=== PATIENT | female | born 1975 | race Caucasian/White ===

== ENCOUNTER → 2019-10-06 09:05 | Outpatient (BNVA) | payer OTHER, SELFPAY | PROVIDERS: Family Provider Family Medicine; PCP Family Medicine; Visit Provider Family Medicine | DX: E78.5 Hyperlipidemia, unspecified (principal); E11.9 Type 2 diabetes mellitus without complications; I10 Essential (primary) hypertension; D50.8 Other iron deficiency anemias; D50.9 Iron deficiency anemia, unspecified | CPT/HCPCS: 80053; 80061; 82728; 83036; 83540; 85025 ==

== ENCOUNTER → 2020-03-01 09:57 | Outpatient (BNVA) | payer OTHER, SELFPAY | PROVIDERS: Family Provider Family Medicine; PCP Family Medicine; Visit Provider Family Medicine | DX: E78.5 Hyperlipidemia, unspecified (principal); I10 Essential (primary) hypertension; E11.9 Type 2 diabetes mellitus without complications; F32.0 Major depressive disorder, single episode, mild; Z68.43 Body mass index [BMI] 50.0-59.9, adult | CPT/HCPCS: 80053; 80061; 82043; 83036; 85025 ==

== ENCOUNTER → 2020-08-30 08:50 | Outpatient (BNVA) | payer OTHER, SELFPAY | PROVIDERS: Family Provider Family Medicine; PCP Family Medicine; Visit Provider Family Medicine | DX: I10 Essential (primary) hypertension (principal); E11.9 Type 2 diabetes mellitus without complications; E78.5 Hyperlipidemia, unspecified; D50.8 Other iron deficiency anemias; F32.0 Major depressive disorder, single episode, mild; N94.6 Dysmenorrhea, unspecified | CPT/HCPCS: 80053; 83036; 85025 ==

== ENCOUNTER → 2020-08-31 11:51 | Outpatient (BNVA) | payer OTHER, SELFPAY | PROVIDERS: Family Provider Family Medicine; PCP Family Medicine | DX: R10.9 Unspecified abdominal pain (principal) | CPT/HCPCS: 81003; 87086 ==

== ENCOUNTER → 2021-03-05 13:38 | Outpatient (BNVA) | payer OTHER, SELFPAY | PROVIDERS: Family Provider Family Medicine; PCP Family Medicine; Visit Provider Family Medicine | DX: I10 Essential (primary) hypertension (principal); E11.9 Type 2 diabetes mellitus without complications; D50.9 Iron deficiency anemia, unspecified; E78.5 Hyperlipidemia, unspecified | CPT/HCPCS: 80053; 80061; 82728; 83036; 83550; 85025 ==

== ENCOUNTER → 2021-09-06 10:14 | Outpatient (BNVA) | payer OTHER, SELFPAY | PROVIDERS: Family Provider Family Medicine; PCP Family Medicine; Visit Provider Family Medicine | DX: E11.9 Type 2 diabetes mellitus without complications (principal); I10 Essential (primary) hypertension | CPT/HCPCS: 80053; 83036 ==

== ENCOUNTER → 2022-03-07 10:26 | Outpatient (BNVA) | payer SELFPAY | PROVIDERS: Family Provider Family Medicine; PCP Family Medicine; Visit Provider Family Medicine | DX: I10 Essential (primary) hypertension (principal); E78.5 Hyperlipidemia, unspecified; E11.9 Type 2 diabetes mellitus without complications | CPT/HCPCS: 80053; 80061; 82043; 83036; 85025 ==

== ENCOUNTER → 2022-11-15 10:01 | Outpatient (BNVA) | payer SELFPAY | PROVIDERS: Family Provider Family Medicine; PCP Family Medicine; Visit Provider Family Medicine | DX: E11.9 Type 2 diabetes mellitus without complications (principal); I10 Essential (primary) hypertension; E78.5 Hyperlipidemia, unspecified; D50.8 Other iron deficiency anemias; Z12.31 Encounter for screening mammogram for malignant neoplasm of breast | CPT/HCPCS: 80053; 83036 ==

== ENCOUNTER → 2023-07-14 16:03 | Outpatient (BNVA) | payer SELFPAY | PROVIDERS: Family Provider Family Medicine; PCP Family Medicine; Visit Provider Family Medicine | DX: E11.9 Type 2 diabetes mellitus without complications (principal); D50.9 Iron deficiency anemia, unspecified; D50.8 Other iron deficiency anemias; R55 Syncope and collapse; Z79.899 Other long term (current) drug therapy | CPT/HCPCS: 80053; 80061; 82043; 82728; 83036; 83550; 85025; 93005 ==

== ENCOUNTER → 2023-10-28 15:10 | Outpatient (BNVA) | payer SELFPAY | PROVIDERS: Family Provider Family Medicine; PCP Family Medicine; Visit Provider Surgery | DX: D50.8 Other iron deficiency anemias (principal); R14.0 Abdominal distension (gaseous) | CPT/HCPCS: 82274; 83630 ==

== ENCOUNTER 2024-04-04 19:13 | Emergency (ER) | payer SELFPAY ==
[2024-04-04 19:20] VITALS: BP 122/76; PULSE 91; RESP 17; TEMP 36.8; O2SAT 93; BMI 44.9
[2024-04-04 19:43] LABS: Bilirubin Urine Negative (Negative); Blood Urine 3+ (Negative); Glucose Urine UA Negative (Normal); Ketones Urine Trace (Negative); Leukocyte Esterase Urine 3+ (Negative); Nitrate Urine Positive (Negative); Protein Urine 3+ (Negative); Specific Gravity, Urine 1.022 (1.005-1.030); Urine Appearance Turbid (CLEAR); Urine Color Dark Yellow (Yellow)
[2024-04-04 19:45] LABS: Add Urine Microscopic? YES; Bacteria Urine 4+ /hpf; Hyaline Casts Urine 17.69 /lpf; RBC Urine >100 /hpf (0-2); Squamous Epithelial Cell Urine 0-5 /hpf (0-5); WBC Urine >100 /hpf (0-5)
[2024-04-04 19:52] LABS: HCG Qualitative Urine. Negative (Negative)
[2024-04-04 19:56] LABS: UA Slide Review UA Slide Review Perf
[2024-04-04 19:57] LABS: Add Urine Culture? Yes; Amorphous Sediment Urine 1+ /hpf
--- NOTE | 2024-04-04 21:00 | W.ED.FEMALGU ---
HPI - Female Genitourinary General: Chief complaint: Urogenital-Female Stated complaint: uti pain Time Seen by Provider: 04/04/24 20:48 History of Present Illness: 48-year-old female comes in today for complaints of urinary discomfort. Patient started feeling ill about Friday or Friday and felt that she probably had a urinary tract infection. Patient had taken some [id number]-[id number] fish antibiotic amoxicillin with no relief of symptoms. Patient appears nontoxic. Patient reports some nausea. Patient denies any back pain. Patient reports most of her pain is in the suprapubic and burning on urination. Patient does have a history of diabetes. Patient denies any allergies to medications. Patient does also take medication for high blood pressure and cholesterol. Related Data Previous Rx's Medication Instructions Recorded metformin 500 mg tablet,extended See Rx Instructions .Route 08/11/23 release 24 hr .COMPLEX #180 tabs citalopram 20 mg tablet See Rx Instructions .Route 10/09/23 .COMPLEX #90 tabs losartan 50 mg-hydrochlorothiazide See Rx Instructions .Route 10/09/23 12.5 mg tablet .COMPLEX #90 tabs metoprolol tartrate 50 mg tablet See Rx Instructions .Route 10/09/23 .COMPLEX #180 tabs atorvastatin 40 mg tablet See Rx Instructions .Route 03/01/24 .COMPLEX #90 tabs ferrous gluconate 324 mg (38 mg 324 mg PO BID #180 tabs 03/01/24 iron) tablet sitagliptin phosphate 100 mg 100 mg PO DAILY #90 tabs 03/01/24 tablet (Januvia) cephalexin 500 mg capsule 500 mg PO Q8H 7 days #21 caps 04/04/24 Allergies Allergy/AdvReac Type Severity Reaction Status Date / Time No Known Allergies Allergy Verified 04/04/24 19:26 Review of Systems General: Reports: 10 or more systems reviewed and unremarkable except in HPI and below : Reports: difficulty voiding PFSH ED PFSH: Medical History (Updated 04/04/24 @ 21:05 by CATRNIA Alvarado) Dyslipidemia Benign essential HTN Mild depression DM II (diabetes mellitus, type II), controlled Iron deficiency anemia Morbid (severe) obesity due to excess calories Menorrhagia, premenopausal Surgical History History of cholecystectomy H/O section History of tonsillectomy Family History Mother Cancer CERVICAL CANCER CAD (coronary artery disease) Social History Smoking and tobacco/nicotine status: never used tobacco/nicotine Alcohol intake: never Substance/Drug Use: never Physical Exam Const: COMMON NORMALS: alert HENMT: COMMON NORMALS: normocephalic HEAD & SCALP: normocephalic Neck/C-Spine: COMMON NORMALS: full ROM Resp: COMMON NORMALS: normal respiratory effort Cardio: COMMON NORMALS: regular rate RATE: regular rate GI: COMMON NORMALS: non-tender : COMMON NORMALS: Yes no CVA tenderness BLADDER/KIDNEY EXAM: Yes no CVA tenderness Back/Pelvis: COMMON NORMALS: no CVA tenderness Extremity: COMMON NORMALS: full ROM Neuro: SENSORIUM/ORIENTATION: Yes alert Skin: COMMON NORMALS: turgor normal GENERAL SKIN EXAM: turgor normal Course Vital Signs: Vital signs: Vital Signs Temperature 98.2 F 04/04/24 19:20 Pulse Rate 91 04/04/24 19:20 Respiratory Rate 17 04/04/24 19:20 Blood Pressure 122/76 04/04/24 19:20 Pulse Oximetry 93 04/04/24 19:20 Oxygen Delivery Me thod Room Air 04/04/24 19:[address] [facility] - Female Medical Decision Making 48-year-old female comes in today for complaints of dysuria x 1 week. On exam patient appears nontoxic. Patient has no CVA tenderness. Patient has no abdominal tenderness. Differential diagnosis includes but not limited to urinary tract infection, pyelonephritis, cystitis, vaginitis. Urinalysis showed a large amount of white blood cells and a large amount of red blood cells with positive nitrates. Reviewed exam with patient recommended treatment for urinary tract infection. Patient will be given 2 g of Rocephin IM and then will be continued on cephalexin 500 mg 3 times a day for 7 days. Patient reported understanding of care plan and need for follow-up or return to the ER. Lab Data Laboratory Results HCG, Qual Negative (Negative) 04/04/24 19:32 Urine Color Dark yellow (Yellow) A 04/04/24 19:33 Urine Appearance Turbid (CLEAR) A 04/04/24 19:33 Urine pH 6.0 (5-7) 04/04/24 19:33 Ur Specific [place] 1.022 (1.005-1.030) 04/04/24 19:33 Urine Protein 3+ (Negative) A 04/04/24 19: Urine Glucose (UA) Negative (Normal) 04/04/24 19: Urine Ketones Trace (Negative) 04/04/24 19: Urine Blood 3+ (Negative) A 04/04/24 19: Urine Nitrate Positive (Negative) A 04/04/24 19: Urine Bilirubin Negative (Negative) 04/04/24 19: Urine Urobilinogen 1.0 mg/dL (Negative) 04/04/24 19: Ur Leukocyte Esterase 3+ (Negative) A 04/04/24 19: Urine RBC >100 /hpf (0-2) H 04/04/24 19:33 Urine WBC >100 /hpf (0-5) H 04/04/24 19:33 Ur Squamous Epith Cells 0-5 /hpf (0-5) 04/04/24 19:33 Amorphous Sediment 1+ /hpf 04/04/24 19:33 Urine Bacteria 4+ /hpf (NONE) H 04/04/24 19:33 Hyaline Casts 17.69 /lpf 04/04/24 19:33 No radiology studies performed this visit Discharge Plan Discharge Patient Disposition: Home Clinical Impression: Urinary tract infection Qualifiers: Urinary tract infection type: acute cystitis Hematuria presence: without hematuria Qualified Code(s): N30.00 - Acute cystitis without hematuria Condition: Stable Prescriptions: New cephalexin 500 mg capsule 500 mg PO Q8H 7 Days Qty: 21 0RF No Action citalopram 20 mg tablet See Rx Instructions .ROUTE .COMPLEX Qty: 90 1RF Dose Instruction: Take 1 tablet by mouth once daily Rx Instructions: Take 1 tablet by mouth once daily losartan-hydrochlorothiazide 50-12.5 mg tablet See Rx Instructions .ROUTE .COMPLEX Qty: 90 1RF Dose Instruction: Take 1 tablet by mouth once daily Rx Instructions: Take 1 tablet by mouth once daily metoprolol tartrate 50 mg tablet See Rx Instructions .ROUTE .COMPLEX Qty: 180 1RF Dose Instruction: Take 1 tablet by mouth twice daily Rx Instructions: Take 1 tablet by mouth twice daily metformin 500 mg tablet extended release 24 hr See Rx Instructions .ROUTE .COMPLEX Qty: 180 1RF Dose Instruction: Take 1 tablet by mouth twice daily Rx Instructions: Take 1 tablet by mouth twice daily Januvia 100 mg tablet 100 mg PO DAILY Qty: 90 1RF atorvastatin 40 mg tablet See Rx Instructions .ROUTE .COMPLEX Qty: 90 1RF Dose Instruction: Take 1 tablet by mouth once daily Rx Instructions: Take 1 tablet by mouth once daily ferrous gluconate 324 mg (38 mg iron) tablet 324 mg PO BID Qty: 180 1RF Discharge Orders: Discharge ED (Routine); Ordered 04/04/24 Ordered By: Paolo Gates Referrals: Georgette Machado DO [Primary Care Provider] - Discharge Diet: Usual diet Discharge Activity: Increase activity as tolerated Patient Instructions: Urinary Tract Infection in Women (ED) Activity Restrictions/Additional Instructions: Drink plenty of water and fluids. Take cephalexin 500 mg 3 times a day for the next 7 days. Follow-up with primary care in 1 week for recheck of urine. Return to ER for worsening symptoms such as inability to hold fluids down or new concerns. Coding Level of Care Code ED Bonding Equipment Operator for Mahesh Heller
[2024-04-04] MEDS: cefTRIAXone 2,000 MG in water for injection-sterile 2.1 ML 1 MG IM (21:32)
[2024-04-04 23:34] VITALS: BP 127/76; PULSE 80; O2SAT 96
[2024-04-06 12:19] LABS: Chlamydia Trachomatis RNA TMA NOT DETECTED (NOT DETECTED); Neisseria Gonorrhoeae RNA, TMA NOT DETECTED (NOT DETECTED); Trichomonas Vaginalis RNA NOT DETECTED (NOT DETECTED)
== END 2024-04-04 21:45 | disposition home or self-care (01) ==
PROVIDERS: Emergency Provider Nurse Practitioner Family; Family Provider Family Medicine; PCP Family Medicine
DX: N30.00 Acute cystitis without hematuria (principal); Z79.84 Long term (current) use of oral hypoglycemic drugs; I10 Essential (primary) hypertension; E11.9 Type 2 diabetes mellitus without complications
CPT/HCPCS: 81001; 81025; 87077; 87086; 87186; 87491; 87591; 96372; 99284; J0696

== ENCOUNTER → 2024-04-12 08:56 | Outpatient (BNVA) | payer SELFPAY | PROVIDERS: Family Provider Family Medicine; PCP Family Medicine; Visit Provider Clinical Nurse Specialist Adult Health | DX: N39.0 Urinary tract infection, site not specified (principal); N30.00 Acute cystitis without hematuria | CPT/HCPCS: 81000; 87086 ==

== ENCOUNTER 2024-04-17 15:53 | Emergency (ER) | payer SELFPAY ==
[2024-04-17 16:03] VITALS: BP 143/75; PULSE 64; RESP 16; TEMP 36.3; O2SAT 95; BMI 44.5
--- NOTE | 2024-04-17 16:19 | CTR_ITS ---
PROCEDURE INFORMATION: Exam: CT Abdomen And Pelvis With Contrast Exam date and time: 04/17/2024 4:40 PM Age: 49 years old Clinical indication: Nausea; Abdominal pain; Generalized; TECHNIQUE: Imaging protocol: Computed tomography of the abdomen and pelvis with contrast. Radiation optimization: All CT scans at this facility use at least one of these dose optimization techniques: automated exposure control; mA and/or kV adjustment per patient size (includes targeted exams where dose is matched to clinical indication); or iterative reconstruction. Contrast material: OMNI 350; Contrast volume: 100 ml; Contrast route: INTRAVENOUS (IV); COMPARISON: No relevant prior studies available. RADIATION DOSE METRICS: Total DLP (mGy-cm): 1089.03 FINDINGS: Lungs: There are pulmonary parenchymal calcifications consistent with remote granulomatous organism exposure. Liver: Normal. No mass. Gallbladder and biliary ducts: The gallbladder has been removed. Pancreas: Normal. No ductal dilation. Spleen: Normal. No splenomegaly. Adrenal glands: Normal. No mass. Kidneys and ureters: Normal. No hydronephrosis. Stomach and bowel: See Urinary bladder finding. Appendix: No evidence of appendicitis. A normal appendix is identified. Intraperitoneal space: See Urinary bladder finding. Vasculature: Unremarkable. No abdominal aortic aneurysm. Lymph nodes: Unremarkable. No enlarged lymph nodes. Urinary bladder: The bladder wall is severely thickened and irregular contour with surrounding inflammatory changes. There is air in the bladder. Sigmoid colon extends into the bladder mucosa consistent with a fistulous connection. There is associated mucosal thickening of the sigmoid colon in this region with surrounding inflammatory stranding. On the right side of the colovesical fistula there is a complex air-fluid collection measuring 13 mm x 22 mm in the transverse/AP dimensions consistent with an abscess formation or rupture of the adjacent sigmoid colon into the peritoneal space. There are multiple small foci of air in this region which appear to be contained locally. Reproductive: The uterus is displaced rightward. Bones/joints: Unremarkable. No acute fracture. Soft tissues: Unremarkable. CT/CT abdomen pelvis w con* [id number] IMPRESSION: Findings as stated above are consistent with acute cystitis with a colovesical fistula and adjacent air-fluid collection consistent with sigmoid colon rupture versus abscess formation.
--- NOTE | 2024-04-17 16:21 | ED_ITS ---
HPI - Female Genitourinary 2 General: Chief complaint: Urogenital-Female Stated complaint: urinary pain Time Seen by Provider: 04/17/24 16:03 History of Present Illness: Jayna Bonilla is a 49-year-old female that presents to the emergency department with complaints of low abdominal pain and back pain. Onset of symptoms approximately 2 weeks ago when she was first diagnosed with a urinary tract infection. She underwent a urine culture which revealed E. coli in her urine. She was treated initially with Keflex but then Rocephin and now ciprofloxacin. She has completed her antibiotics but woke up today with increased abdominal pain and new onset of back pain. She is pale and sick appearing. She reports nausea but no vomiting. Denies fevers but has chills. Associated symptoms: Reports abdominal pain and nausea; Deny headache(s) Related Data Previous Rx's Medication Instructions Recorded metformin 500 mg tablet,extended See Rx Instructions .Route 08/11/23 release 24 hr .COMPLEX #180 tabs citalopram 20 mg tablet See Rx Instructions .Route 10/09/23 .COMPLEX #90 tabs losartan 50 mg-hydrochlorothiazide See Rx Instructions .Route 10/09/23 12.5 mg tablet .COMPLEX #90 tabs metoprolol tartrate 50 mg tablet See Rx Instructions .Route 10/09/23 .COMPLEX #180 tabs atorvastatin 40 mg tablet See Rx Instructions .Route 03/01/24 .COMPLEX #90 tabs ferrous gluconate 324 mg (38 mg 324 mg PO BID #180 tabs 03/01/24 iron) tablet sitagliptin phosphate 100 mg 100 mg PO DAILY #90 tabs 03/01/24 tablet (Januvia) ciprofloxacin HCl 500 mg tablet 500 mg PO BID 5 days #10 tabs 04/12/24 (Cipro) Allergies Allergy/AdvReac Type Severity Reaction Status Date / Time No Known Allergies Allergy Verified 04/17/24 16:09 Review of Systems 2 General: Reports: 10 or more systems reviewed and unremarkable except in HPI and below Const: Denies: fever(s), chills, change in appetite, change in weight, fatigue or malaise Card: Denies: chest pain, palpitations, irregular heart rhythm, edema, dyspnea on exertion, orthopnea or leg pain with exertion Resp: Denies: dyspnea, productive cough, non-productive cough, wheezing, stridor or chest congestion GI: Reports: abdominal pain and nausea; Denies: vomiting, dysphagia, diarrhea, constipation, bloating, GI cramping or hematochezia : Reports: flank pain, difficulty voiding, dysuria, urinary frequency and urinary urgency; Denies: urinary hesitancy, oliguria or hematuria Neuro: Denies: headache(s), numbness in extremities, weakness in extremities, sensory changes, lack of coordination, difficulty walking, frequent falls, dizziness, confusion, Slurred speech present, difficulty communicating thoughts, seizure-like activity or involuntary movements Endo: Denies: polyuria, polydipsia or tired all the time Bernard/Lymph: Denies: easy bruising or easy bleeding PFSH ED 2 PFSH: Medical History Dyslipidemia Benign essential HTN Mild depression DM II (diabetes mellitus, type II), controlled Iron deficiency anemia Morbid (severe) obesity due to excess calories Menorrhagia, premenopausal Surgical History History of cholecystectomy H/O section History of tonsillectomy Family History Mother Cancer CERVICAL CANCER CAD (coronary artery disease) Social History Smoking and tobacco/nicotine status: never used tobacco/nicotine Alcohol intake: never Substance/Drug Use: never Physical Exam 2 Const: COMMON NORMALS: no acute distress, patient oriented x3 and alert G ENERAL APPEARANCE: cooperative ORIENTATION/CONSCIOUSNESS: Yes awake, Yes oriented to person, Yes oriented to place and Yes oriented to time HENMT: COMMON NORMALS: normocephalic and atraumatic HEAD & SCALP: n ormocephalic and atraumatic FACE & SINUS: normal facial exam MOUTH: Normal oral and palatal mucosa present THROAT: posterior oropharynx normal Eye: COMMON NORMALS: Equal, round and reactive pupils present, EOMs intact bilaterally, conjunctivae normal and no scleral icterus GENERAL EYE: a ppearance normal, both eyes and all related structures ALIGNMENT: Yes alignment normal PERIORBITAL: periorbital findings normal CONJUNCTIVA: Yes conjunctivae normal PUPIL: Yes Equal, round and reactive pupils present Neck/C-Spine: COMMON NORMALS: full ROM GENERAL: Yes normal visual inspection Lymph: LYMPHATIC: no lymphadenopathy noted Chest: COMMONS NORMALS: normal inspection of the chest Breast/axilla inspection: Yes no chest deformity, asymmetry, normal contours, no nodules, masses, tenderness Resp: COMMON NORMALS: normal respiratory effort, No retractions, No use of accessory muscles and clear to auscultation bilaterally EFFORT & INSPECTION: Yes able to speak in complete sentences and Yes symmetric chest movement A USCULTATION: clear to auscultation bilaterally Cardio: COMMON NORMALS: regular rate, regular rhythm and Peripheral pulses 2+ throughout RATE: regular rate RHYTHM: regular rhythm PERIPHERAL PULSES: Peripheral pulses 2+ throughout GI: COMMON NORMALS: Normal to inspection, nondistended, normoactive bowel sounds present, Soft to palpation, non-tender and No hepatosplenomegaly present INSPECTION: Yes normal to inspection AUSCULTATION: Yes normoactive bowel sounds PALPATION: Yes Soft to palpation and Yes No hepatosplenomegaly present RECTAL EXAM: deferred Extremity: COMMON NORMALS: normal to inspection GENERAL: Yes normal exam except as noted Neuro: COMMON NORMALS: patient oriented x3 SENSORIUM/ORIENTATION: Yes alert, Yes oriented to person, Yes oriented to place and Yes oriented to time CRANIAL NERVES: Yes CN normal except as noted Psych: COMMON NORMALS: mental status grossly normal, Normal thought process present, cooperative, activity/motor behavior normal, denies homicidal ideation and denies suicidal ideation THOUGHT PROCESS: Normal thought process present Skin: COMMON NORMALS: no rashes or lesions noted, no wounds and turgor normal GENERAL SKIN EXAM: no rashes or lesions noted and turgor normal Course 2 Vital Signs: Vital signs: Vital Signs Temperature 97.4 F L 04/17/24 16:03 Pulse Rate 62 04/17/24 20:37 Respiratory Rate 16 04/17/24 20:37 Blood Pressure 126/69 04/17/24 20:37 Pulse Oximetry 96 04/17/24 20:37 Oxygen Delivery Me thod Room Air 04/17/24 20:37 MDM - Female Medical Decision Making Patient evaluated in the emergency department today for ongoing urinary complaints. Patient has been treated 3 times for a urinary tract infection. Urine culture positive for E. coli and last antibiotic was ciprofloxacin. Patient presents today with worsening suprapubic abdominal pain that radiates into her back. She has no CVA tenderness. She reports bladder spasms, burning with urination, increased urine urgency and hesitancy. She underwent laboratory evaluation including CBC, CMP, lactic. Laboratory studies revealed anemia that is mildly worse than her baseline. No leukocytosis. She has no significant electrolyte abnormalities. Lactic acid is normal I did order a CT of her abdomen pelvis with contrast. CT of the abdomen pelvis revealed severely thickened and irregular bladder wall with evidence of sigmoid colon fistula and through the bladder mucosa. There is also associated mucosal thickening of the sigmoid colon and surrounding inflammatory stranding. There is a complex air-fluid collection that measures 13 mm x 22 mm in the transverse AP dimension consistent with an abscess formation or rupture of adjacent segment of sigmoid colon into the peritoneal space. I started the patient on Zosyn, gave her another fluid bolus. I reviewed these findings with Dr. Lopez, my attending as well as a patient. I attempted to transfer patient to [facility] in [place] for colorectal surgery evaluation. Unfortunately they are unable to accept the patient due to infrastructure issue. I attempted a second facility?Dr. Sparks in [place] who recommended discharge home. I did speak with [facility] GI?colorectal who recommended admission. Patient needed to be evaluated before a decision like that could be made for discharge home. We elected to call [facility] in [place]. I spoke with Dr. Gallego who recommends excepting the patient for inpatient transfer and having her evaluated. She is going to need urology, colorectal, GI, possible ID. They have accepted the patient under Dr. Hooks. Awaiting transfer Lab Data 04/17/24 16:30 04/17/24 16:30 Radiology Impressions Abdomen/Pelvis CT 04/17/24 16:19 IMPRESSION: Findings as stated above are consistent with acute cystitis with a colovesical fistula and adjacent air-fluid collection consistent with sigmoid colon rupture versus abscess formation. ADDENDUM: 04/17/24 768 CRITICAL RESULT: The study was personally discussed on the telephone with BERNADETTE OSMAN on 04/17/2024 6:06 PM PASSENGER LOCOMOTIVE ENGINEER. The results were understood and acknowledged. Laboratory Results WBC 8.91 10^3/uL (3.29-11.43) 04/17/24 16:30 RBC 3.73 10^6/uL (3.85-5.65) L 04/17/24 16:30 Hgb 9.00 g/dL (11.27-16.99) L 04/17/24 16: Hct 29.2 % (36-47) L 04/17/24: MCV 78.3 fl (85-98) L 04/17/24 16: MCH 24.1 pg (27-33) L 04/17/24: MCHC 30.8 g/dL (30-55) 04/17/24: RDW 14.5 % (12.1-15.1) 04/17/24: Plt Count 602 10^3/cmm (157-399) H 04/17/24: MPV 9.0 fL (7.4-10.4) 04/17/24: Neut % (Auto) 64.5 % 04/17/24: Lymph % (Auto) 23.3 % 04/17/24: [place] % (Auto) 9.4 % 04/17/24: Eos % (Auto) 1.6 % 04/17/24: Baso % (Auto) 0.9 % 04/17/24: Neut # (Auto) 5.74 10^3/uL (1.8-7.7) 04/17/24: Lymph # (Auto) 2.1 10^3/uL (0.8-4.8) 04/17/24: [place] # (Auto) 0.8 10^3/uL (0.2-0.9) 04/17/24: Eos # (Auto) 0.1 10^3/uL (0.0-0.8) 04/17/24: Baso # (Auto) 0.1 10^3/uL (0.0-0.1) 04/17/24: Nucleated RBC % (auto) 0 % 04/17/24 Nucleated RBCs # 0.0 /100WBC 04/17/24 16: Sodium 135 mmol/L (136-145) L 04/17/24: Potassium 4.0 mmol/L (3.5-5.1) 04/17/24: Chloride 99 mmol/L (98-107) 04/17/24 16:30 Carbon Dioxide 24 mmol/L (22-29) 04/17/24 16:30 Anion Gap 16.0 (5-19) 04/17/24 16:30 BUN 10 mg/dL (6-20) 04/17/24 16:30 Creatinine 0.8 mg/dL (0.5-0.9) 04/17/24 16:30 GFR Calculation 76.6 mL/min (90-130) L 04/17/24 16: Glucose 118 mg/dL (65-115) H 04/17/24 16:30 Calculated Osmolality 280 mOsm/kg (285-295) L 04/17/24 16:30 Lactic Acid 1.5 mmol/L (0.5-2.2) 04/17/24 16:30 Calcium 8.5 mg/dL (8.5-10.5) 04/17/24 16:30 Total Bilirubin 0.2 mg/dL (0.15-1.2) 04/17/24 16:30 AST 16 U/L (0-32) 04/17/24 16:30 ALT 11 U/L (0-33) 04/17/24 16:30 Alkaline Phosphatase 86 U/L (35-105) 04/17/24 16:30 Total Protein 7.8 g/dL (6.6-8.7) 04/17/24 16:30 Albumin 3.7 g/dL (3.5-5.2) 04/17/24 16:30 Globulin 4.1 g/dL (1.3-4.6) 04/17/24 16:30 Urine Color Yellow (Yellow) 04/17/24 16:17 Urine Appearance Clear (CLEAR) 04/17/24 16:17 Urine pH 5.5 (5-7) 04/17/24 16:17 Ur Specific [place] 1.009 (1.005-1.030) 04/17/24 16:17 Urine Protein 1+ (Negative) A 04/17/24 16:17 Urine Glucose (UA) Negative (Normal) 04/17/24 16:17 Urine Ketones Negative (Negative) 04/17/24 16:17 Urine Blood 3+ (Negative) A 04/17/24 16: Urine Nitrate Negative (Negative) 04/17/24 16: Urine Bilirubin Negative (Negative) 04/17/24 16:17 Urine Urobilinogen 0.2 mg/dL (Negative) 04/17/24 16:17 Ur Leukocyte Esterase 3+ (Negative) A 04/17/24 16:17 Urine RBC 21-50 /hpf (0-2) H 04/17/24 16:17 Urine WBC 51-100 /hpf (0-5) H 04/17/24 16:17 Ur Squamous Epith Cells 0-5 /hpf (0-5) 04/17/24 16:17 Amorphous Sediment Not Reportable 04/17/24 16:17 Urine Bacteria Trace /hpf (NONE) 04/17/24 16:17 Hyaline Casts 0-4 /lpf H 04/17/24 16:17 All radiology interpretation(s) finalized by discharge Discharge Plan Discharge Patient Disposition: Transfer to ED Clinical Impression: [place]-vesical fistula, Mild depression, Benign essential HTN, Urinary tract infection, Intra-abdominal abscess Iron deficiency anemia Qualifiers: Iron deficiency anemia type: inadequate dietary iron intake Qualified Code(s): D50.8 - Other iron deficiency anemias DM II (diabetes mellitus, type II), controlled Qualifiers: Diabetes mellitus termite helper insulin use: without termite helper use Diabetes mellitus complication status: without complication Qualified Code(s): E11.9 - Type 2 diabetes mellitus without complications Condition: Stable Prescriptions: No Action citalopram 20 mg tablet See Rx Instructions .ROUTE .COMPLEX Qty: 90 1RF Dose Instruction: Take 1 tablet by mouth once daily Rx Instructions: Take 1 tablet by mouth once daily losartan-hydrochlorothiazide 50-12.5 mg tablet See Rx Instructions .ROUTE .COMPLEX Qty: 90 1RF Dose Instruction: Take 1 tablet by mouth once daily Rx Instructions: Take 1 tablet by mouth once daily metoprolol tartrate 50 mg tablet See Rx Instructions .ROUTE .COMPLEX Qty: 180 1RF Dose Instruction: Take 1 tablet by mouth twice daily Rx Instructions: Take 1 tablet by mouth twice daily ciprofloxacin HCl [Cipro] 500 mg tablet 500 mg PO BID 5 Days Qty: 10 0RF metformin 500 mg tablet extended release 24 hr See Rx Instructions .ROUTE .COMPLEX Qty: 180 1RF Dose Instruction: Take 1 tablet by mouth twice daily Rx Instructions: Take 1 tablet by mouth twice daily Januvia 100 mg tablet 100 mg PO DAILY Qty: 90 1RF atorvastatin 40 mg tablet See Rx Instructions .ROUTE .COMPLEX Qty: 90 1RF Dose Instruction: Take 1 tablet by mouth once daily Rx Instructions: Take 1 tablet by mouth once daily ferrous gluconate 324 mg (38 mg iron) tablet 324 mg PO BID Qty: 180 1RF Referrals: Georgette Machado DO [Primary Care Provider] - Coding Level of Care Code ED Cutting Machine Fixer for Mahesh Heller
[2024-04-17 16:32] LABS: Bilirubin Urine Negative (Negative); Blood Urine 3+ (Negative); Glucose Urine UA Negative (Normal); Ketones Urine Negative (Negative); Leukocyte Esterase Urine 3+ (Negative); Nitrate Urine Negative (Negative); Protein Urine 1+ (Negative); Specific Gravity, Urine 1.009 (1.005-1.030); Urine Appearance Clear (CLEAR); Urine Color Yellow (Yellow); Urobilinogen Urine 0.2 mg/dL (Negative); pH Urine 5.5 (5-7)
[2024-04-17 16:37] LABS: Add Urine Microscopic? YES; Bacteria Urine Trace /hpf; Hyaline Casts Urine 0-4 /lpf; RBC Urine 21-50 /hpf (0-2); Squamous Epithelial Cell Urine 0-5 /hpf (0-5); WBC Urine 51-100 /hpf (0-5)
[2024-04-17] MEDS: iohexol 350 mg/mL 500 mL Btl (per mL) IV (16:42)
[2024-04-17 16:49] LABS: Basophils # 0.1 10^3/uL (0.0-0.1); Basophils % 0.9 %; Eosinophils # 0.1 10^3/uL (0.0-0.8); Eosinophils % 1.6 %; Hematocrit 29.2 % (36-47); Lymphocytes # 2.1 10^3/uL (0.8-4.8); Lymphocytes % 23.3 %; Mean Corpuscular HGB Conc 30.8 g/dL (30-55); Mean Corpuscular Hemoglobin 24.1 pg (27-33); Mean Corpuscular Volume 78.3 fl (85-98); Monocytes # 0.8 10^3/uL (0.2-0.9); Monocytes % 9.4 %; Neutrophils # 5.74 10^3/uL (1.8-7.7); Neutrophils % 64.5 %; Nucleated Red Blood Cells % 0 %; Platelet Count 602 10^3/cmm (157-399); Red Blood Count 3.73 10^6/uL (3.85-5.65); Red Cell Distribution Width 14.5 % (12.1-15.1); White Blood Count 8.91 10^3/uL (3.29-11.43)
[2024-04-17 16:53] LABS: Add Urine Culture? Yes
[2024-04-17] MEDS: phenazopyridine 100 mg Tablet PO (16:59)
[2024-04-17] MEDS: sodium chloride 0.9% 1,000 ML 999 ML IV (16:59)
[2024-04-17] MEDS: ondansetron 2 mg/ML SDV 2 mL 4 MG IVP (17:00)
[2024-04-17] MEDS: morphine 4 mg/mL SDV 1 mL IVP (17:00)
[2024-04-17 17:04] VITALS: BP 145/72; PULSE 55; RESP 16; O2SAT 96
[2024-04-17 17:06] LABS: Alanine Aminotransferase 11 U/L (0-33); Albumin Level 3.7 g/dL (3.5-5.2); Alkaline Phosphatase 86 U/L (35-105); Aspartate Amino Transferase 16 U/L (0-32); Blood Urea Nitrogen 10 mg/dL (6-20); Calcium 8.5 mg/dL (8.5-10.5); Carbon Dioxide 24 mmol/L (22-29); Chloride 99 mmol/L (98-107); Creatinine Clr Calc Pharmacy 93.2258; Globulin 4.1 g/dL (1.3-4.6); Glomerular Filtration Rate 76.6 mL/min (90-130); Glucose 118 mg/dL (65-115); Osmolality Calculated 280 mOsm/kg (285-295); Sodium 135 mmol/L (136-145); Total Bilirubin 0.2 mg/dL (0.15-1.2); Total Protein 7.8 g/dL (6.6-8.7)
[2024-04-17 17:07] LABS: Lactic Sepsis W/Reflex 1.5 mmol/L (0.5-2.2)
[2024-04-17 19:18] VITALS: BP 129/72; PULSE 58; RESP 16; O2SAT 96
[2024-04-17] MEDS: piperacillin-tazobactam 3.375 GM in sodium chloride 0.9% (plus) 50 ML IV (19:25)
[2024-04-17 20:37] VITALS: BP 126/69; PULSE 62; RESP 16; O2SAT 96
[2024-04-17 21:59] VITALS: BP 127/76; PULSE 57; RESP 16; O2SAT 94
[2024-04-17 22:58] VITALS: BP 127/87; PULSE 89; O2SAT 99
== END 2024-04-17 22:59 ==
LOC: ER 16:24 → NP 20:03 → ER 21:04
PROVIDERS: Emergency Medicine; Emergency Provider Nurse Practitioner; PCP Family Medicine
DX: N32.1 Vesicointestinal fistula (principal); F32.A Depression, unspecified; K65.1 Peritoneal abscess; N39.0 Urinary tract infection, site not specified; I10 Essential (primary) hypertension; D50.8 Other iron deficiency anemias; E11.9 Type 2 diabetes mellitus without complications; E78.5 Hyperlipidemia, unspecified
CPT/HCPCS: 36415; 74177; 80053; 81001; 83605; 85025; 87040; 87086; 96365; 96375; 99285; J2270; J2405; J2543; J7030

== ENCOUNTER 2024-05-28 17:16 | Emergency (ER) | payer SELFPAY ==
[2024-05-28] VITALS (7 sets, daily range): BP systolic 104–119; BP diastolic 54–74; PULSE 66–101; RESP 16; TEMP 36.9; O2SAT 91–100; BMI 41.3
--- NOTE | 2024-05-28 19:22 | XRR_ITS ---
PROCEDURE INFORMATION: Exam: XR Chest Exam date and time: 05/28/2024 7:47 PM Age: 49 years old Clinical indication: Patient HX: Dizziness; Cough; SOB; Chest congestion TECHNIQUE: Imaging protocol: Radiologic exam of the chest. Views: 1 view. COMPARISON: CT abdomen pelvis w con* [id number] 04/17/2024 4:40 PM FINDINGS: Tubes, catheters and devices: None. Lungs: Lung volumes are decreased. Possible minimal central perihilar pulmonary venous congestion or infiltrates within the lungs, without definite pulmonary edema. The peripheral lungs are otherwise clear. Pleural spaces: No pleural effusion. No pneumothorax. Heart/Mediastinum: Cardiac silhouette appears mildly enlarged. Diaphragm: Elevation of the right hemidiaphragm is demonstrated. Bones/joints: Generalized bony degenerative changes. Soft tissues: This study is severely limited by patient's large body habitus. Clinically significant abnormalities may not be visible on this study. Recommend clinical correlation. XR/XR chest 1V portable [id number] IMPRESSION: 1. Significantly limited study. 2. Mild enlarged cardiac silhouette. 3. Possible central pulmonary venous congestion or minimal perihilar infiltrates.
--- NOTE | 2024-05-28 19:31 | ECG_ITS ---
[facility] Test Date: 2024-05-28 Pat Name: Jayna Ricketts Department: Room: Gender: Female Supervisor Color Making: : 1975 Requested By: Rakesh Bradshaw Order Number: [id number] Shelli MD: Trent Sexton M.D. Measurements Intervals [place] Rate: 84 P: 77 [place]: 164 QRS: 69 QRSD: 97 T: 72 QT: 369 QTc: 437 Interpretive Statements SINUS RHYTHM No previous ECG available for comparison Electronically Signed On 05-30-2024 20:10:14 [employer]ATING [employer] CLE[employer]ER by Trent Sexton M.D. [email or web address]
--- NOTE | 2024-05-28 19:47 | ED_ITS ---
HPI - Dizziness 2 General: Chief Complaint: Dizziness Stated Complaint: dizzy Time Seen by Provider: 05/28/24 19:21 Source: patient Mode of arrival: ambulatory Limitations: no limitations History of Present Illness: HPI Narrative: He states that she has been having some cough congestion body aches with generalized weakness. She states she had some lightheadedness today she denies any vertigo but states she is felt very lightheaded at times and dehydrated. She had also recently been diagnosed with a UTI is on Augmentin currently. 49-year-old female Associated symptoms: Denies chest pain, chills, headache(s), nausea or vomiting Related Data Previous Rx's Medication Instructions Recorded metformin 500 mg tablet,extended See Rx Instructions .Route 08/11/23 release 24 hr .COMPLEX #180 tabs citalopram 20 mg tablet See Rx Instructions .Route 10/09/23 .COMPLEX #90 tabs losartan 50 mg-hydrochlorothiazide See Rx Instructions .Route 10/09/23 12.5 mg tablet .COMPLEX #90 tabs metoprolol tartrate 50 mg tablet See Rx Instructions .Route 10/09/23 .COMPLEX #180 tabs atorvastatin 40 mg tablet See Rx Instructions .Route 03/01/24 .COMPLEX #90 tabs ferrous gluconate 324 mg (38 mg 324 mg PO BID #180 tabs 03/01/24 iron) tablet sitagliptin phosphate 100 mg 100 mg PO DAILY #90 tabs 03/01/24 tablet (Januvia) ciprofloxacin HCl 500 mg tablet 500 mg PO BID 5 days #10 tabs 04/12/24 (Cipro) Allergies Allergy/AdvReac Type Severity Reaction Status Date / Time No Known Allergies Allergy Verified 05/28/24 17:25 Review of Systems 2 Const: Denies: fever(s), chills, body aches or change in appetite ENMT: Denies: throat pain or dental pain Card: Reports: lightheadedness; Denies: chest pain Resp: Denies: dyspnea GI: Denies: abdominal pain, nausea, vomiting or diarrhea : Reports: dysuria Musc: Denies: neck pain or back pain Skin/Breast: Denies: rash Neuro: Denies: headache(s) PFSH ED 2 PFSH: Medical History Dyslipidemia Benign essential HTN Mild depression DM II (diabetes mellitus, type II), controlled Iron deficiency anemia Morbid (severe) obesity due to excess calories Menorrhagia, premenopausal Surgical History History of cholecystectomy H/O section History of tonsillectomy Family History Mother Cancer CERVICAL CANCER CAD (coronary artery disease) Social History Smoking and tobacco/nicotine status: never used tobacco/nicotine Alcohol intake: never Substance/Drug Use: never Female Reproductive History: Date of last menstrual period: 01/01/24 Physical Exam 2 Const: COMMON NORMALS: patient oriented x3 HENMT: COMMON NORMALS: normocephalic and atraumatic HEAD & SCALP: n ormocephalic and atraumatic Eye: COMMON NORMALS: conjunctivae normal CONJUNCTIVA: Yes conjunctivae normal Neck/C-Spine: COMMON NORMALS: full ROM and supple Chest: COMMONS NORMALS: normal inspection of the chest Resp: COMMON NORMALS: normal respiratory effort Cardio: COMMON NORMALS: regular rate, regular rhythm and No murmurs present (Cardio) RATE: regular rate RHYTHM: regular rhythm GI: COMMON NORMALS: Normal to inspection, nondistended, normoactive bowel sounds present, Soft to palpation, non-tender and no masses PALPATION: Yes Soft to palpation Extremity: COMMON NORMALS: normal to inspection and full ROM Neuro: COMMON NORMALS: patient oriented x3, moves all extremities and no focal motor deficits CRANIAL NERVES: Yes CN normal except as noted SPEECH: s peech normal GAIT: Yes Normal gait present Psych: COMMON NORMALS: mental status grossly normal, Normal thought process present and cooperative THOUGHT PROCESS: Normal thought process present Skin: COMMON NORMALS: no rashes or lesions noted and no wounds GENERAL SKIN EXAM: no rashes or lesions noted Course 2 Vital Signs: Vital signs: Vital Signs Temperature 98.4 F 05/28/24 17:20 Pulse Rate 66 05/28/24 21:16 Respiratory Rate 16 05/28/24 21:16 Blood Pressure 104/62 05/28/24 21:16 Pulse Oximetry 96 05/28/24 21:16 Oxygen Delivery Me thod Room Air 05/28/24 21:00 MDM - Dizziness Medical Decision Making Patient presents here with generalized weakness cough congestion she did test positive for COVID likely causing her symptoms she does have a UTI as well she is to continue antibiotics she stable for discharge follow-up with PCP return if worsening. Medical Records I reviewed the patient's medical records. Lab Data I reviewed the patient's lab results. 05/28/24 19:56 05/28/24 19:56 Radiology Impressions Chest X-Ray 05/28/24 19:22 IMPRESSION: 1. Significantly limited study. 2. Mild enlarged cardiac silhouette. 3. Possible central pulmonary venous congestion or minimal perihilar infiltrates. Laboratory Results WBC 10.89 10^3/uL (3.29-11.43) 05/28/24 19:56 RBC 3.40 10^6/uL (3.85-5.65) L 05/28/24 19:56 Hgb 7.60 g/dL (11.27-16.99) L 05/28/24 19:56 Hct 25.8 % (36-47) L 05/28/24 19:56 MCV 75.9 fl (85-98) L 05/28/24 19:56 MCH 22.4 pg (27-33) L 05/28/24 19:56 MCHC 29.5 g/dL (30-55) L 05/28/24 19:56 RDW 16.5 % (12.1-15.1) H 05/28/24 19:56 Plt Count 627 10^3/cmm (157-399) H 05/28/24 19:56 MPV 8.4 fL (7.4-10.4) 05/28/24 19:56 Neut % (Auto) 87.8 % 05/28/24 19:56 Lymph % (Auto) 6.8 % 05/28/24 19:56 [place] % (Auto) 4.6 % 05/28/24 19:56 Eos % (Auto) 0.1 % 05/28/24 19:56 Baso % (Auto) 0.3 % 05/28/24 19:56 Neut # (Auto) 9.57 10^3/uL (1.8-7.7) H 05/28/24 19:56 Lymph # (Auto) 0.7 10^3/uL (0.8-4.8) L 05/28/24 19:56 [place] # (Auto) 0.5 10^3/uL (0.2-0.9) 05/28/24 19:56 Eos # (Auto) 0.0 10^3/uL (0.0-0.8) 05/28/24 19:56 Baso # (Auto) 0.0 10^3/uL (0.0-0.1) 05/28/24 19:56 Nucleated RBC % (auto) 0 % 05/28/24 19:56 Nucleated RBCs # 0.0 /100WBC 05/28/24 19:56 Sodium 136 mmol/L (136-145) 05/28/24 19:56 Potassium 4.0 mmol/L (3.5-5.1) 05/28/24 19:56 Chloride 100 mmol/L (98-107) 05/28/24 19:56 Carbon Dioxide 26 mmol/L (22-29) 05/28/24 19:56 Anion Gap 14.0 (5-19) 05/28/24 19:56 BUN 8 mg/dL (6-20) 05/28/24 19:56 Creatinine 0.5 mg/dL (0.5-0.9) 05/28/24 19:56 GFR Calculation 131.7 mL/min (90-130) H 05/28/24 19:56 Glucose 115 mg/dL (65-115) 05/28/24 19:56 Calculated Osmolality 281 mOsm/kg (285-295) L 05/28/24 19:56 Calcium 8.4 mg/dL (8.5-10.5) L 05/28/24 19:56 Total Bilirubin 0.3 mg/dL (0.15-1.2) 05/28/24 19:56 AST 20 U/L (0-32) 05/28/24 19:56 ALT 15 U/L (0-33) 05/28/24 19:56 Alkaline Phosphatase 98 U/L (35-105) 05/28/24 19:56 Total Protein 7.0 g/dL (6.6-8.7) 05/28/24 19:56 Albumin 3.1 g/dL (3.5-5.2) L 05/28/24 19:56 Globulin 3.9 g/dL (1.3-4.6) 05/28/24 19:56 HCG, Qual Negative (Negative) 05/28/24 19:50 Urine Color Yellow (Yellow) 05/28/24 19:50 Urine Appearance Cloudy (CLEAR) A 05/28/24 19:50 Urine pH 7.5 (5-7) 05/28/24 19:50 Ur Specific [place] 1.022 (1.005-1.030) 05/28/24 19:50 Urine Protein 1+ (Negative) A 05/28/24 19:50 Urine Glucose (UA) Negative (Normal) 05/28/24 19:50 Urine Ketones Trace (Negative) 05/28/24 19:50 Urine Blood 3+ (Negative) A 05/28/24 19:50 Urine Nitrate Negative (Negative) 05/28/24 19:50 Urine Bilirubin Negative (Negative) 05/28/24 19:50 Urine Urobilinogen 1.0 mg/dL (Negative) 05/28/24 19:50 Ur Leukocyte Esterase 3+ (Negative) A 05/28/24 19:50 Urine RBC 51-100 /hpf (0-2) H 05/28/24 19:50 Urine WBC >100 /hpf (0-5) H 05/28/24 19:50 Ur Squamous Epith Cells 0-5 /hpf (0-5) 05/28/24 19:50 Amorphous Sediment Not Reportable 05/28/24 19:50 Urine Bacteria 3+ /hpf (NONE) H 05/28/24 19:50 Hyaline Casts 3.30 /lpf 05/28/24 19:50 Coronavirus (PCR) Positive (Negative) A 05/28/24 19:59 Influenza A (PCR) Negative (Negative) 05/28/24 19:59 Influenza Type B (PCR) Negative (Negative) 05/28/24 19:59 RSV (PCR) Negative (Negative) 05/28/24 19:59 No radiology studies performed this visit Discharge Plan Discharge Patient Disposition: Home Clinical Impression: COVID-19 Condition: Stable Prescriptions: No Action citalopram 20 mg tablet See Rx Instructions .ROUTE .COMPLEX Qty: 90 1RF Dose Instruction: Take 1 tablet by mouth once daily Rx Instructions: Take 1 tablet by mouth once daily losartan-hydrochlorothiazide 50-12.5 mg tablet See Rx Instructions .ROUTE .COMPLEX Qty: 90 1RF Dose Instruction: Take 1 tablet by mouth once daily Rx Instructions: Take 1 tablet by mouth once daily metoprolol tartrate 50 mg tablet See Rx Instructions .ROUTE .COMPLEX Qty: 180 1RF Dose Instruction: Take 1 tablet by mouth twice daily Rx Instructions: Take 1 tablet by mouth twice daily ciprofloxacin HCl [Cipro] 500 mg tablet 500 mg PO BID 5 Days Qty: 10 0RF metformin 500 mg tablet extended release 24 hr See Rx Instructions .ROUTE .COMPLEX Qty: 180 1RF Dose Instruction: Take 1 tablet by mouth twice daily Rx Instructions: Take 1 tablet by mouth twice daily Januvia 100 mg tablet 100 mg PO DAILY Qty: 90 1RF atorvastatin 40 mg tablet See Rx Instructions .ROUTE .COMPLEX Qty: 90 1RF Dose Instruction: Take 1 tablet by mouth once daily Rx Instructions: Take 1 tablet by mouth once daily ferrous gluconate 324 mg (38 mg iron) tablet 324 mg PO BID Qty: 180 1RF Discharge Orders: Discharge ED (Routine); Ordered 05/28/24 Ordered By: Lourdes Preston Referrals: Gagan Graves MD [Primary Care Provider] - 4-7 days Discharge Diet: Advance as tolerated Discharge Activity: Resume usual activity Patient Instructions: COVID-19 (Coronavirus Disease 2019) (ED) Coding Level of Care Code ED Specialist Field Engineer for Mahesh Heller
[2024-05-28] MEDS: sodium chloride 0.9% 1,000 ML 999 ML IV (19:52)
[2024-05-28] MEDS: ondansetron 2 mg/ML SDV 2 mL 4 MG IVP (19:52)
[2024-05-28 20:08] LABS: Basophils % 0.3 %; Eosinophils % 0.1 %; Hematocrit 25.8 % (36-47); Lymphocytes # 0.7 10^3/uL (0.8-4.8); Lymphocytes % 6.8 %; Mean Corpuscular HGB Conc 29.5 g/dL (30-55); Mean Corpuscular Hemoglobin 22.4 pg (27-33); Mean Corpuscular Volume 75.9 fl (85-98); Mean Platelet Volume 8.4 fL (7.4-10.4); Monocytes # 0.5 10^3/uL (0.2-0.9); Monocytes % 4.6 %; Neutrophils # 9.57 10^3/uL (1.8-7.7); Neutrophils % 87.8 %; Nucleated Red Blood Cells % 0 %; Platelet Count 627 10^3/cmm (157-399); Red Cell Distribution Width 16.5 % (12.1-15.1); White Blood Count 10.89 10^3/uL (3.29-11.43)
[2024-05-28 20:10] LABS: HCG Qualitative Urine. Negative (Negative)
[2024-05-28 20:12] LABS: Bilirubin Urine Negative (Negative); Blood Urine 3+ (Negative); Glucose Urine UA Negative (Normal); Ketones Urine Trace (Negative); Leukocyte Esterase Urine 3+ (Negative); Nitrate Urine Negative (Negative); Protein Urine 1+ (Negative); Specific Gravity, Urine 1.022 (1.005-1.030); Urine Appearance Cloudy (CLEAR); Urine Color Yellow (Yellow); pH Urine 7.5 (5-7)
[2024-05-28 20:14] LABS: Add Urine Microscopic? YES; Bacteria Urine 3+ /hpf; RBC Urine 51-100 /hpf (0-2); Squamous Epithelial Cell Urine 0-5 /hpf (0-5); WBC Urine >100 /hpf (0-5)
[2024-05-28 20:16] LABS: Add Urine Culture? Yes
[2024-05-28 20:25] LABS: Alanine Aminotransferase 15 U/L (0-33); Albumin Level 3.1 g/dL (3.5-5.2); Alkaline Phosphatase 98 U/L (35-105); Aspartate Amino Transferase 20 U/L (0-32); Blood Urea Nitrogen 8 mg/dL (6-20); Calcium 8.4 mg/dL (8.5-10.5); Carbon Dioxide 26 mmol/L (22-29); Chloride 100 mmol/L (98-107); Creatinine Clr Calc Pharmacy 142.8558; Globulin 3.9 g/dL (1.3-4.6); Glomerular Filtration Rate 131.7 mL/min (90-130); Glucose 115 mg/dL (65-115); Osmolality Calculated 281 mOsm/kg (285-295); Sodium 136 mmol/L (136-145); Total Bilirubin 0.3 mg/dL (0.15-1.2)
[2024-05-28] MEDS: cefTRIAXone 1,000 mg SDV 1000 MG IVP (20:31)
[2024-05-28 20:44] LABS: Influenza A NEGATIVE (Negative); Influenza B NEGATIVE (Negative); Respiratory Syncytial Virus Ce NEGATIVE (Negative)
[2024-05-28 20:55] LABS: Covid PCR Positive (Negative)
== END 2024-05-28 21:38 | disposition home or self-care (01) ==
PROVIDERS: Nurse Practitioner; Emergency Provider Emergency Medicine; PCP Family Medicine Adult Medicine
DX: U07.1 COVID-19 (principal); Z11.52 Encounter for screening for COVID-19; Z79.84 Long term (current) use of oral hypoglycemic drugs; E78.5 Hyperlipidemia, unspecified; I10 Essential (primary) hypertension
CPT/HCPCS: 36415; 71045; 80053; 81001; 81025; 85025; 87086; 87637; 93005; 96374; 96375; 99285; J0696; J2405; J7030

== ENCOUNTER 2024-06-04 11:33 | Emergency (ER) | payer OTHER, SELFPAY ==
[2024-06-04 11:41] VITALS: PULSE 110; RESP 18; O2SAT 95; BMI 41.3
--- NOTE | 2024-06-04 11:53 | CTR_ITS ---
PROCEDURE INFORMATION: Exam: CT Abdomen And Pelvis With Contrast Exam date and time: 06/04/2024 1:02 PM Age: 49 years old Clinical indication: Abdominal pain; Prior surgery; Surgery date: 6+ months; Surgery type: Gb csection TECHNIQUE: Imaging protocol: Computed tomography of the abdomen and pelvis with contrast. Radiation optimization: All CT scans at this facility use at least one of these dose optimization techniques: automated exposure control; mA and/or kV adjustment per patient size (includes targeted exams where dose is matched to clinical indication); or iterative reconstruction. Contrast material: OMNI 350; Contrast volume: 100 ml; Contrast route: INTRAVENOUS (IV); COMPARISON: CT abdomen pelvis w con* [id number] 04/17/2024 4:40 PM RADIATION DOSE METRICS: Total DLP (mGy-cm): 1023.8 FINDINGS: Lungs: Unchanged calcified granuloma lower right lung. Small amounts of new atelectasis and/or pneumonitis in the lung bases. Diaphragm: Increased moderate elevation of the right hemidiaphragm. Liver: New mild, diffuse fatty infiltration of the liver. Otherwise, unremarkable liver. Gallbladder and biliary ducts: Unchanged cholecystectomy. Unremarkable bile ducts. Pancreas: Normal. No ductal dilation. Spleen: Normal. No splenomegaly. Adrenal glands: Normal. No mass. Kidneys and ureters: Normal. No hydronephrosis. 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 New inflammation of the cecum and adjacent ascending colon with suspected new fistula from the urinary bladder to this portion of the colon. Otherwise, grossly unremarkable stomach and bowel. Appendix: Portions of the appendix are visualized, and appear normal. Intraperitoneal space: Markedly increased multiloculated abscess in the pelvis bilaterally. A component abutting the superior bladder measures 8.5 cm in AP dimension by 7 cm in transverse dimension by 4.5 cm in craniocaudal dimension. This component was present previously measuring 1.3 cm by 2.2 cm. A new component in the anterior left pelvis measures 8 cm in AP dimension by 4.5 cm in transverse dimension by 6.5 cm in craniocaudal dimension. Additional new smaller components, mostly in the anterior and right pelvis and right lower quadrant of the abdomen. Small amounts of free air scattered in the abdomen and pelvis are increased. Increased additional small amounts of intraperitoneal fluid and fat stranding. Vasculature: Unremarkable. No abdominal aortic aneurysm. Lymph nodes: Unremarkable. No enlarged lymph nodes. Urinary bladder: Persistent cystitis. Fistula from the urinary bladder to sigmoid colon is again suspected. Now suspected is also a fistula from the urinary bladder to the cecum. Reproductive: Unchanged retroverted uterus displaced to the right. Bones/joints: Nothing acute. No change. Soft tissues: Small fat containing benign-appearing umbilical hernia. This is unchanged. New involvement anterior pelvic wall musculature with infection and abscess. Otherwise, unremarkable visualized body wall. Otherwise, unremarkable soft tissues. CT/CT abdomen pelvis w con* [id number] IMPRESSION: 1. Markedly increased multiloculated abscess in the pelvis bilaterally. A component abutting the superior bladder measures 8.5 cm in AP dimension by 7 cm in transverse dimension by 4.5 cm in craniocaudal dimension. This component was present previously measuring 1.3 cm by 2.2 cm. A new component in the anterior left pelvis measures 8 cm in AP dimension by 4.5 cm in transverse dimension by 6.5 cm in craniocaudal dimension. Additional new smaller components, mostly in the anterior and right pelvis and right lower quadrant of the abdomen. 2. Small amounts of free air scattered in the abdomen and pelvis are increased. 3. Increased additional small amounts of intraperitoneal fluid and fat stranding. 4. 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 5. New inflammation of the cecum and adjacent ascending colon with suspected new fistula from the urinary bladder to this portion of the colon. 6. Persistent cystitis. 7. New involvement anterior pelvic wall musculature bilaterally with infection and abscess. 8. Increased moderate elevation of the right hemidiaphragm. 9. New mild, diffuse fatty infiltration of the liver. 10. Small amount of new atelectasis and/or pneumonitis in the lung bases. 11. Additional details as above.
--- NOTE | 2024-06-04 11:54 | ED_ITS ---
HPI - Abdominal Pain 2 General: Chief Complaint: Abdominal Pain Stated Complaint: abd pain Time Seen by Provider: 06/04/24 11:35 Source: patient Mode of arrival: ambulatory Limitations: no limitations History of Present Illness: Patient is a 49-year-old female presents to ED today with complaint of abdominal pain. Patient states she woke up around 5:30 AM this morning to go to the bathroom felt a pop in her lower abdomen. She states by 8:30 AM she was having severe diffuse pain. Patient was seen here recently after testing positive for COVID. She feels like she is recovering from this. Patient was transferred to [facility] in April for colovesical fistula as well as concern for sigmoid colon rupture vs abscess. She states she was treated with IV abx and catheter. Had follow up with them on 05/13. MD elicited complaint: abdominal pain Pertinent past history: none Onset (ago): hour(s) Pain Consistency: constant Location: Diffuse Severity: severe Radiation: none Migration to: no migration Exacerbating factors: nothing Relieving factors: nothing Associated Symptoms: Reports nausea; Denies change in bowel habits, chills, diarrhea, dysuria, fever(s) and vomiting Related Data Home Medications Medication Instructions Recorded Confirmed acetaminophen 500 mg tablet 1,000 mg PO Q6H PRN Pain 06/04/24 06/04/24 (Tylenol Extra Strength) atorvastatin 40 mg tablet 40 mg PO DAILY 06/04/24 06/04/24 citalopram 20 mg tablet 20 mg PO DAILY 06/04/24 06/04/24 ibuprofen 200 mg tablet (Advil) 800 mg PO Q6H PRN Pain 06/04/24 06/04/24 losartan 50 mg-hydrochlorothiazide 1 tab PO DAILY 06/04/24 06/04/24 12.5 mg tablet metformin 500 mg tablet,extended 500 mg PO BID 06/04/24 06/04/24 release 24 hr metoprolol tartrate 50 mg tablet 50 mg PO BID 06/04/24 06/04/24 Previous Rx's Medication Instructions Recorded ferrous gluconate 324 mg (38 mg 324 mg PO BID #180 tabs 03/01/24 iron) tablet sitagliptin phosphate 100 mg 100 mg PO DAILY #90 tabs 03/01/24 tablet (Januvia) Allergies Allergy/AdvReac Type Severity Reaction Status Date / Time No Known Allergies Allergy Verified 05/28/24 17:25 Review of Systems 2 Const: Denies: fever(s), chills, body aches, fatigue or malaise Card: Denies: chest pain Resp: Denies: dyspnea GI: Reports: abdominal pain and nausea; Denies: vomiting, diarrhea or change in bowel habits : Denies: flank pain, difficulty voiding, dysuria, urinary frequency, urinary urgency or urinary hesitancy Musc: Denies: neck pain, back pain, extremity pain, extremity swelling, joint pain or joint swelling Skin/Breast: Denies: rash Neuro: Denies: headache(s), numbness in extremities, weakness in extremities, sensory changes or dizziness PFSH ED 2 PFSH: Medical History Dyslipidemia Benign essential HTN Mild depression DM II (diabetes mellitus, type II), controlled Iron deficiency anemia Morbid (severe) obesity due to excess calories Menorrhagia, premenopausal Surgical History History of cholecystectomy H/O section History of tonsillectomy Family History Mother Cancer CERVICAL CANCER CAD (coronary artery disease) Social History Smoking and tobacco/nicotine status: never used tobacco/nicotine Alcohol intake: never Substance/Drug Use: never Physical Exam 2 Const: COMMON NORMALS: no acute distress, patient oriented x3, no limitations, alert and well nourished GENERAL APPEARANCE: cooperative NUTRITIONAL APPEARANCE: obese ORIENTATION/CONSCIOUSNESS: Yes awake, Yes oriented to person, Yes oriented to place and Yes oriented to time HENMT: COMMON NORMALS: normocephalic and atraumatic HEAD & SCALP: n ormocephalic and atraumatic Eye: COMMON NORMALS: no scleral icterus Neck/C-Spine: COMMON NORMALS: full ROM, no lymphadenopathy, supple and no meningeal signs Chest: COMMONS NORMALS: normal inspection of the chest Resp: COMMON NORMALS: normal respiratory effort and clear to auscultation bilaterally AUSCULTATION: clear to auscultation bilaterally OTHER: on oxygen via EMS due to hypoxia following opiate administration Cardio: COMMON NORMALS: regular rate and regular rhythm RATE: regular rate RHYTHM: regular rhythm GI: COMMON NORMALS: Normal to inspection, nondistended, normoactive bowel sounds present, Soft to palpation, No hepatosplenomegaly present and no masses INSPECTION: Yes normal to inspection PALPATION: Yes Soft to palpation, Yes Tenderness to palpation present (GI), Yes Guarding due to palpation present (GI) and Yes No hepatosplenomegaly present : COMMON NORMALS: Yes no CVA tenderness BLADDER/KIDNEY EXAM: Yes no CVA tenderness Back/Pelvis: COMMON NORMALS: no CVA tenderness and thoracic and lumbar spine normal to inspection Extremity: COMMON NORMALS: normal to inspection GENERAL: Yes normal exam except as noted Neuro: COMMON NORMALS: patient oriented x3, moves all extremities, no focal motor deficits and no sensory deficits noted SENSORIUM/ORIENTATION: Yes alert, Yes oriented to person, Yes oriented to place and Yes oriented to time MENINGEAL SIGNS: Yes no meningeal signs Skin: COMMON NORMALS: no rashes or lesions noted GENERAL SKIN EXAM: no rashes or lesions noted Course 2 Consultations: Consultation #1: Dr. Hernandez-recommends transfer back to [facility] Consultation #2: Dr. Gallego-[facility] colorectal fellow; accepting physician is Dr. Resendiz Vital Signs: Vital signs: Vital Signs Temperature 98.9 F 06/04/24 12:54 Pulse Rate 112 H 06/04/24 15:43 Respiratory Rate 18 06/04/24 15:43 Blood Pressure 148/81 06/04/24 15:43 Pulse Oximetry 94 06/04/24 15:43 Oxygen Delivery Me thod Nasal Cannula 06/04/24 15:43 Oxygen Flow Rate 2 06/04/24 15:43 MDM - Abdominal Pain Medical Decision Making Patient here with severe abdominal pain. Patient was transferred to [facility] approximately a month and a half ago due to a colovesical fistula as well as concern for a sigmoid colon rupture/abscess formation. She has followed up with them since transfer. Today she was found to have a markedly increased multiloculated abscess in her pelvis measuring 7 x 8.5 x 4.5cm. Several smaller pelvic/abdominal abscesses. Small amounts of free air scattered in her abdomen and pelvis. Residual fistula formation with new fistula formation as well. Spoke to Dr. Villegas who is recommending she be transferred back to [facility]. Spoke to colorectal resident/fellow Dr. Gallego who accepts patient. Dr. Resendiz attending. Dr. Jeffers aware of patient and plan for transfer. She has had ideal body weight fluids, blood cultures and abx initiated. She is tachycardic but blood pressure is stable. White count 12,000 with a normal lactate. Hemoglobin of 7.9 which is up from her last previous. Medical Records I reviewed the patient's medical records. Lab Data I reviewed the patient's lab results. 06/04/24 12:15 06/04/24 12:15 Labs/Radiology: Radiology Impressions Abdomen/Pelvis CT 06/04/24 11:53 IMPRESSION: 1. Markedly increased multiloculated abscess in the pelvis bilaterally. A component abutting the superior bladder measures 8.5 cm in AP dimension by 7 cm in transverse dimension by 4.5 cm in craniocaudal dimension. This component was present previously measuring 1.3 cm by 2.2 cm. A new component in the anterior left pelvis measures 8 cm in AP dimension by 4.5 cm in transverse dimension by 6.5 cm in craniocaudal dimension. Additional new smaller components, mostly in the anterior and right pelvis and right lower quadrant of the abdomen. 2. Small amounts of free air scattered in the abdomen and pelvis are increased. 3. Increased additional small amounts of intraperitoneal fluid and fat stranding. 4. 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 5. New inflammation of the cecum and adjacent ascending colon with suspected new fistula from the urinary bladder to this portion of the colon. 6. Persistent cystitis. 7. New involvement anterior pelvic wall musculature bilaterally with infection and abscess. 8. Increased moderate elevation of the right hemidiaphragm. 9. New mild, diffuse fatty infiltration of the liver. 10. Small amount of new atelectasis and/or pneumonitis in the lung bases. 11. Additional details as above. ADDENDUM: 06/04/24 1407 ADDENDUM: THIS REPORT CONTAINS FINDINGS THAT MAY BE CRITICAL TO PATIENT CARE. The findings were verbally communicated via telephone conference with nurse practitioner Sissy Lima at 2:04 PM HELMET BINDER on 06/04/2024. The findings were acknowledged and understood. Laboratory Results WBC 12.05 10^3/uL (3.29-11.43) H 06/04/24 12:15 RBC 3.59 10^6/uL (3.85-5.65) L 06/04/24 12:15 Hgb 7.90 g/dL (11.27-16.99) L 06/04/24 12:15 Hct 28.1 % (36-47) L 06/04/24 12:15 MCV 78.3 fl (85-98) L 06/04/24 12:15 MCH 22.0 pg (27-33) L 06/04/24 12:15 MCHC 28.1 g/dL (30-55) L 06/04/24 12:15 RDW 17.2 % (12.1-15.1) H 06/04/24 12:15 Plt Count 703 10^3/cmm (157-399) H 06/04/24 12:15 MPV 9.5 fL (7.4-10.4) 06/04/24 12:15 Neut % (Auto) 86.6 % 06/04/24 12:15 Lymph % (Auto) 7.3 % 06/04/24 12:15 Garrett % (Auto) 5.6 % 06/04/24 12:15 Eos % (Auto) 0.0 % 06/04/24 12:15 Baso % (Auto) 0.2 % 06/04/24 12:15 Neut # (Auto) 10.42 10^3/uL (1.8-7.7) H 06/04/24 12:15 Lymph # (Auto) 0.9 10^3/uL (0.8-4.8) 06/04/24 12:15 Garrett # (Auto) 0.7 10^3/uL (0.2-0.9) 06/04/24 12:15 Eos # (Auto) 0.0 10^3/uL (0.0-0.8) 06/04/24 12:15 Baso # (Auto) 0.0 10^3/uL (0.0-0.1) 06/04/24 12:15 Nucleated RBC % (auto) 0 % 06/04/24 12:15 Nucleated RBCs # 0.0 /100WBC 06/04/24 12:15 PT 15.00 SECONDS (12.1-14.9) H 06/04/24 13:15 INR 1.11 (0.8-1.2) 06/04/24 13:15 APTT 30.8 SECONDS (23.9-36.7) 06/04/24 13:15 Sodium 136 mmol/L (136-145) 06/04/24 12:15 Potassium 4.1 mmol/L (3.5-5.1) 06/04/24 12:15 Chloride 98 mmol/L (98-107) 06/04/24 12:15 Carbon Dioxide 19 mmol/L (22-29) L 06/04/24 12:15 Anion Gap 23.1 (5-19) H 06/04/24 12:15 BUN 13 mg/dL (6-20) 06/04/24 12:15 Creatinine 0.5 mg/dL (0.5-0.9) 06/04/24 12:15 GFR Calculation 131.7 mL/min (90-130) H 06/04/24 12:15 Glucose 121 mg/dL (65-115) H 06/04/24 12:15 Calculated Osmolality 283 mOsm/kg (285-295) L 06/04/24 12:15 Lactic Acid 2.2 mmol/L (0.5-2.2) 06/04/24 14:27 Calcium 8.6 mg/dL (8.5-10.5) 06/04/24 12:15 Total Bilirubin 0.5 mg/dL (0.15-1.2) 06/04/24 12:15 AST 9 U/L (0-32) 06/04/24 12:15 ALT 7 U/L (0-33) 06/04/24 12:15 Alkaline Phosphatase 98 U/L (35-105) 06/04/24 12:15 Total Protein 8.3 g/dL (6.6-8.7) 06/04/24 12:15 Albumin 2.9 g/dL (3.5-5.2) L 06/04/24 12:15 Globulin 5.4 g/dL (1.3-4.6) H 06/04/24 12:15 Lipase 8 U/L (13-60) L 06/04/24 12:15 HCG, Qual Negative (Negative) 06/04/24 12:15 Urine Color Cancelled 06/04/24 12:32 Urine Appearance Cancelled 06/04/24 12:32 Urine pH Cancelled 06/04/24 12:32 Ur Specific [place] Cancelled 06/04/24 12:32 Urine Protein Cancelled 06/04/24 12:32 Urine Glucose (UA) Cancelled 06/04/24 12:32 Urine Ketones Cancelled 06/04/24 12:32 Urine Blood Cancelled 06/04/24 12:32 Urine Nitrate Cancelled 06/04/24 12:32 Urine Bilirubin Cancelled 06/04/24 12:32 Prot Sulfosalicylic Acd Cancelled 06/04/24 12:32 Urine Urobilinogen Cancelled 06/04/24 12:32 Ur Leukocyte Esterase Cancelled 06/04/24 12:32 Urine RBC Cancelled 06/04/24 12:32 Urine WBC Cancelled 06/04/24 12:32 Ur Squamous Epith Cells Cancelled 06/04/24 12:32 Ur Transition Epith Cell Cancelled 06/04/24 12:32 Ur Renal Epithelial Cell Cancelled 06/04/24 12:32 Calcium Oxalate Crystal Cancelled 06/04/24 12:32 Uric Acid Crystals Cancelled 06/04/24 12:32 Triple Phos Crystals Cancelled 06/04/24 12:32 Other Crystals Cancelled 06/04/24 12:32 Amorphous Sediment Cancelled 06/04/24 12:32 Urine Bacteria Cancelled 06/04/24 12:32 Hyaline Casts Cancelled 06/04/24 12:32 Fine Granular Casts Cancelled 06/04/24 12:32 Coarse Granular Casts Cancelled 06/04/24 12:32 RBC Casts Cancelled 06/04/24 12:32 Other Casts Cancelled 06/04/24 12:32 Urine Mucus Cancelled 06/04/24 12:32 Urine Trichomonas Cancelled 06/04/24 12:32 Urine Yeast Cancelled 06/04/24 12:32 Urine Sperm Cancelled 06/04/24 12:32 Ur Oval Fat Bodies Cancelled 06/04/24 12:32 All radiology interpretation(s) finalized by discharge Discharge Plan Discharge Patient Disposition: Xfer Short-Term Hosp Clinical Impression: Abscess of pelvis, Colovesical fistula Condition: Stable Referrals: Gagan Graves MD [Primary Care Provider] - Coding Level of Care Code ED Electron Tube Assembler for Chg Pina
[2024-06-04 12:17] VITALS: BP 115/68; PULSE 121; RESP 18; O2SAT 92
[2024-06-04 12:22] LABS: Basophils % 0.2 %; Hematocrit 28.1 % (36-47); Lymphocytes # 0.9 10^3/uL (0.8-4.8); Lymphocytes % 7.3 %; Mean Corpuscular HGB Conc 28.1 g/dL (30-55); Mean Corpuscular Volume 78.3 fl (85-98); Mean Platelet Volume 9.5 fL (7.4-10.4); Monocytes # 0.7 10^3/uL (0.2-0.9); Monocytes % 5.6 %; Neutrophils # 10.42 10^3/uL (1.8-7.7); Neutrophils % 86.6 %; Nucleated Red Blood Cells % 0 %; Platelet Count 703 10^3/cmm (157-399); Red Blood Count 3.59 10^6/uL (3.85-5.65); Red Cell Distribution Width 17.2 % (12.1-15.1); White Blood Count 12.05 10^3/uL (3.29-11.43)
[2024-06-04 12:36] LABS: HCG, Serum Qual Negative (Negative)
[2024-06-04 12:39] LABS: Blood Urea Nitrogen 13 mg/dL (6-20); Calcium 8.6 mg/dL (8.5-10.5); Chloride 98 mmol/L (98-107); Total Bilirubin 0.5 mg/dL (0.15-1.2); Total Protein 8.3 g/dL (6.6-8.7)
[2024-06-04] MEDS: sodium chloride 0.9% 1,000 ML 999 ML IV ×2 (12:47→14:53)
[2024-06-04 12:54] VITALS: BP 145/68; PULSE 112; RESP 16; TEMP 37.2; O2SAT 90
[2024-06-04] MEDS: iohexol 350 mg/mL 500 mL Btl (per mL) IV (13:04)
[2024-06-04 13:08] LABS: Alanine Aminotransferase 7 U/L (0-33); Alkaline Phosphatase 98 U/L (35-105); Aspartate Amino Transferase 9 U/L (0-32); Potassium 4.1 mmol/L (3.5-5.1); Sodium 136 mmol/L (136-145)
[2024-06-04 13:10] LABS: Albumin Level 2.9 g/dL (3.5-5.2); Anion Gap 23.1 (5-19); Carbon Dioxide 19 mmol/L (22-29); Globulin 5.4 g/dL (1.3-4.6); Glucose 121 mg/dL (65-115); Lipase 8 U/L (13-60); Osmolality Calculated 283 mOsm/kg (285-295)
[2024-06-04 13:15] LABS: Creatinine Clr Calc Pharmacy 142.8558; Glomerular Filtration Rate 131.7 mL/min (90-130)
[2024-06-04 13:31] LABS: INR 1.11 (0.8-1.2)
[2024-06-04 13:32] LABS: Partial Thromboplastin Time 30.8 SECONDS (23.9-36.7)
[2024-06-04] MEDS: morphine 4 mg/mL SDV 1 mL IVP ×2 (13:39→17:31)
[2024-06-04] MEDS: piperacillin-tazobactam 3.375 GM in sodium chloride 0.9% (plus) 50 ML IV (14:16)
[2024-06-04 15:00] LABS: Lactic Sepsis W/Reflex 2.2 mmol/L (0.5-2.2)
[2024-06-04 15:43] VITALS: BP 148/81; PULSE 112; RESP 18; O2SAT 94
[2024-06-04 16:26] LABS: Reflex Lactate Order REFLEX LACTIC ORDERD
[2024-06-04] MEDS: sodium chloride 0.9% 1,000 ML 125 ML IV (17:31)
== END 2024-06-04 18:03 | disposition short-term general hospital (02) ==
PROVIDERS: Emergency Provider Physician Assistant; PCP Family Medicine Adult Medicine
DX: N73.9 Female pelvic inflammatory disease, unspecified (principal); N32.1 Vesicointestinal fistula; E78.5 Hyperlipidemia, unspecified; E11.9 Type 2 diabetes mellitus without complications; I10 Essential (primary) hypertension
CPT/HCPCS: 36415; 74177; 80053; 83605; 83690; 84703; 85025; 85610; 85730; 87040; 96365; 96375; 96376; 99285; J2270; J2543; J7030

== ENCOUNTER 2024-09-06 09:15 | Day surgery (SDC) | payer OTHER, SELFPAY ==
[2024-09-06] VITALS (9 sets, daily range): BP systolic 130–151; BP diastolic 61–88; PULSE 65–86; RESP 16–20; TEMP 36.1–36.6; O2SAT 92–100
[2024-09-06] MEDS: sodium chloride 0.9% 1,000 ML 30 ML IV (09:45)
--- NOTE | 2024-09-06 09:47 | W.PM.OPSFHP ---
Same Day Surgery H&P Indication for Procedure/HPI DATE OF PROCEDURE: September 06, 2024 CHIEF COMPLAINT/INDICATIONFOR SURGICAL PROCEDURE: need for port a cath for chemotherapy PREOP DIAGNOSIS: colon cancer PLANNED PROCEDURE: Operation Date: 09/06/24 10:45 Proposed Procedures p Portacath Placement 53703, C18.7(Not Applicable) - Manuel Randall MD Medications/Allergies* Home Medications ?Medication ?Instructions ?Recorded ?Confirmed ?Type acetaminophen 500 mg tablet 1,000 mg PO Q6H PRN Pain 06/04/24 09/06/24 History (Tylenol Extra Strength) atorvastatin 40 mg tablet 40 mg PO DAILY 09/02/24 09/06/24 History losartan 50 mg-hydrochlorothiazide 0.5 tab PO DAILY 09/02/24 09/06/24 History 12.5 mg tablet metoprolol tartrate 50 mg tablet 25 mg PO DAILY 09/02/24 09/06/24 History Allergies/Adverse Reactions Allergy/AdvReac Type Severity Reaction Status Date / Time No Known Allergies Allergy Verified 09/02/24 14:19 Pertinent History/Comorbid Conditions* Medical History (Updated 08/02/24 @ 10:47 by Susy Gonzalez MD) Mass of colon Colostomy in place Dyslipidemia Benign essential HTN Mild depression DM II (diabetes mellitus, type II), controlled Iron deficiency anemia Morbid (severe) obesity due to excess calories Menorrhagia, premenopausal Surgical History (Updated 06/07/19 @ 08:17 by Georgette Machado DO) History of cholecystectomy H/O section History of tonsillectomy Family History (Updated 06/02/19 @ 09:30 by Nafisa Lynn LPN) CAD (coronary artery disease) Mother Cancer Mother CERVICAL CANCER Social History Smoking and tobacco/nicotine status: never used tobacco/nicotine Alcohol intake: never Substance/Drug Use: never Pertinent Exam Findings alert, oriented x 3, clear to auscultation bilaterally and regular rate & rhythm Recommendations Surgery/Procedure today Coding Level of Care Code Acute Code for Chg Fwd
--- NOTE | 2024-09-06 09:49 | ANES.PREANE2 ---
Pre-Anesthetic Assessment Height/Weight: Height 5 ft Weight 285 lb Temp Pulse Resp BP Pulse Ox O2 Del Method 97.8 F 65 16 151/88 100 Room Air 09/06/24 09:33 09/06/24 09:33 09/06/24 09:33 09/06/24 09:33 09/06/24 09:33 09/06/24 09:33 Preop Diagnosis: colon cancer Operation Date: 09/06/24 10:45 Proposed Procedures p Portacath Placement 26926, C18.7(Not Applicable) - Manuel Randall MD Was Beta Stephen taken within 24 hours: Yes Was Clonidine taken within 24 hours: N/A Last intake: Intake Last Liquid Date 09/05/24 Last Liquid Time 21:00 Last Solid Date 09/05/24 Last Solid Time 19:30 Social No alcohol and No tobacco Exam alert, oriented x 3, clear to auscultation bilaterally and regular rate & rhythm (Significant systolic ejection flow murmur heard on auscultation) Airway Submandibular: within normal limits Cervical ROM: within normal limits Mallampati: Class II Dentition: full Anesthetic Plan ASA status: 3 Anesthesia: MAC Other: No prior issues with anesthesia NPO since yesterday evening History of type 2 diabetes, no insulin Hypertension on losartan?HCTZ and metoprolol Patient has a significant systolic ejection flow murmur heard on auscultation. States that she is previously seeing cardiology years ago and was told everything was fine. She states she has had a murmur since Colon cancer, need for chemotherapy Labs reviewed in June. Chronic anemia noted EKG showing sinus rhythm METs greater than 4 Plan for MAC anesthesia Medications/Allergies Home Medications ?Medication ?Instructions ?Recorded ?Confirmed ?Last Taken ?Type ferrous gluconate 324 mg (38 mg 324 mg PO BID #180 tabs 03/01/24 09/06/24 09/05/24 Rx iron) tablet acetaminophen 500 mg tablet 1,000 mg PO Q6H PRN Pain 06/04/24 09/06/24 3 Months Ago History (Tylenol Extra Strength) ~06/04/24 citalopram 20 mg tablet 20 mg PO DAILY #90 tabs 06/24/24 09/06/24 09/06/24 Rx metformin 500 mg tablet,extended 500 mg PO BID #180 tabs 06/24/24 09/06/24 09/04/24 Rx release 24 hr sitagliptin phosphate 100 mg 100 mg PO DAILY #90 tabs 06/24/24 09/06/24 09/05/24 Rx tablet (Januvia) lorazepam 1 mg tablet 0.5 - 1 mg (0.5 - 1 x 1 mg) PO Q6H 08/02/24 09/06/24 Unknown Rx PRN severe nausea #30 tabs ondansetron HCl 4 mg tablet 4 mg PO Q6H PRN nausea and 08/02/24 09/06/24 Unknown Rx vomiting #30 tabs prochlorperazine maleate 10 mg 10 mg PO Q4H PRN mild nausea #30 08/02/24 09/06/24 Unknown Rx tablet (Compazine) tabs atorvastatin 40 mg tablet 40 mg PO DAILY 09/02/24 09/06/24 09/05/24 History losartan 50 mg-hydrochlorothiazide 0.5 tab PO DAILY 09/02/24 09/06/24 09/05/24 History 12.5 mg tablet metoprolol tartrate 50 mg tablet 25 mg PO DAILY 09/02/24 09/06/24 09/06/24 History Allergies Allergy/AdvReac Type Severity Reaction Status Date / Time No Known Allergies Allergy Verified 09/02/24 14:19 PFSH Anesthesia Medical History Mass of colon Colostomy in place Dyslipidemia Benign essential HTN Mild depression DM II (diabetes mellitus, type II), controlled Iron deficiency anemia Morbid (severe) obesity due to excess calories Menorrhagia, premenopausal Surgical History (Updated 08/04/24 @ 11:[address]) History of cholecystectomy H/O section History of tonsillectomy Family History Mother Cancer CERVICAL CANCER CAD (coronary artery disease) Social History Smoking and tobacco/nicotine status: never used tobacco/nicotine Alcohol intake: never Substance/Drug Use: never Female Reproductive History Date of last menstrual period: 01/01/24 Data Anesthesia Cardiac Studies: No Data to Display
[2024-09-06 09:50] LABS: Glucose Point of Care 93 mg/dL (70-110)
[2024-09-06] MEDS: ceFAZolin 2,000 mg SDV 2000 MG IVP (10:10)
[2024-09-06] MEDS: heparin, porcine 1,000 unit/mL INJ 10 mL 6000 UNIT IRRIGATION (10:42)
[2024-09-06] MEDS: lidocaine-epi 1% 20 mL INJ INJECTION (10:43)
--- NOTE | 2024-09-06 11:07 | P.OP_ITS ---
Operative Report Date of procedure: September 06, 2024 Pre-op diagnosis: Colon cancer Post-op diagnosis: Same Post-op findings: Normal vascular anatomy of the neck Procedure done: Insertion of right IJ Port-A-Cath Implants: Bard Port-A-Cath Specimens removed/disposition: None Surgeon: Manuel Randall MD Post Closing Specialist: XIMENA OR STaff Complications: none Brief History: 41-year-old female with colon cancer who presents for port placement. All risk benefits were discussed and documented in my preop note Procedure: Patient was brought into the OR, she was placed in a supine position, moderate anesthesia sedation was given. Timeout was conducted after the skin was prepped and draped in the usual sterile fashion. I then proceeded to identify the right IJ vein with ultrasound, I infiltrated local anesthesia on top of the vein. I then proceeded to cannulate the vein under direct ultrasound guidance using an 18-gauge needle, the needle tip was seen entering the vein and immediate return of blood was noted. A wire was advanced through the needle and the needle was removed. The position of the wire was verified with ultrasound and fluoroscopy. The wire was then fixed to the drapes. I then placed my attention to the chest, local anesthesia was infiltrated in the previously marked area on the chest and then a tract connecting the chest to the wire insertion site in the neck. I then proceeded to make a 3.5 cm incision in the right upper chest, the incision was deepened to subcutaneous tissue with electrocautery and electrocautery was used to create the subcutaneous pocket to house the Port-A-Cath. I then proceeded to use a hemostat to create a tunnel from the chest wound to the neck. I then proceeded to make a 0.5 cm incision at the level of the wire insertion site in the neck. Hemostasis was verified. I then placed the Port-A-Cath in the pocket and tunneled the catheter using the provided tunneler. The catheter was cut to appropriate length under fluoroscopy guidance and then flushed. I then proceeded to insert an introducer with a peel-off sheath over the wire under direct fluoroscopic guidance. I then remove the wire and the introducer leaving the peel-off sheath in place. The catheter was then advanced through the peel-off sheath and the peel-off sheath was removed leaving the catheter in place. Fluoroscopy showed evidence of Adequate catheter position. I then proceeded to access the port; the port was retrieving blood and flushing fine, I then hep-locked the catheter. Hemostasis was verified. The wound was closed in layers using #3-0 Vicryl for the subcutaneous tissue and #4 Monocryl for the skin. Dermabond was applied. At the end of the procedure all counts were correct. The patient tolerated well the procedure and was transferred to the PACU in stable condition.
--- NOTE | 2024-09-06 11:25 | SC_ITS ---
WS: [id number] C-ARM RADIOGRAPHS CHEST; 2 IMAGES HISTORY: Port placement COMPARISON: None available. Intraoperative imaging during RIGHT sided Mediport placement. Tip of the catheter overlies the caval atrial junction. SC/C-arm FL for CVA [id number] IMPRESSION: Intraoperative imaging during Mediport placement.
--- NOTE | 2024-09-06 12:10 | ANE.PACU2 ---
Inpatient post-anesthesia follow up: Airway intact: Yes Vital signs: Temperature 97 F Pulse Rate 65 Respiratory Rate 16 Blood Pressure 150/84 Pulse Oximetry 94 Oxygen Delivery Me thod Room Air Oxygen Flow Rate 7 Fraction of Inspir ed Oxygen Hydration adequate: Yes Nausea and vomiting: No Pain level: 1 Mental status: Baseline
[2024-09-07 05:28] LABS: OR HCG Qualitative Urine Negative (Negative)
== END 2024-09-06 12:10 | disposition home or self-care (01) ==
PROVIDERS: PCP Clinical Nurse Specialist Adult Health; Visit Provider Surgery
PROC: (CPT 36561; principal; 2024-09-06 10:35)
DX: C18.7 Malignant neoplasm of sigmoid colon (principal); I10 Essential (primary) hypertension; E78.5 Hyperlipidemia, unspecified; R01.1 Cardiac murmur, unspecified; E11.9 Type 2 diabetes mellitus without complications; Z93.3 Colostomy status; Z79.899 Other long term (current) drug therapy; Z79.84 Long term (current) use of oral hypoglycemic drugs
CPT/HCPCS: 36561; 36416; 77001; 81025; 82962; C1788; J0690; J1644; J2250; J2405; J2704; J3010; J7030; J9999

== ENCOUNTER 2024-09-09 23:44 | Emergency (ER) | payer OTHER, SELFPAY ==
--- NOTE | 2024-09-09 23:50 | ECG_ITS ---
[facility] Test Date: 2024-09-09 Pat Name: Jayna Ricketts Department: Room: Gender: Female Ophthalmology Technician: : 1975 Requested By: Anibal Lopez Order Number: [id number] Shelli MD: Zita Abernathy M.D. Measurements Intervals [place] Rate: 56 P: 153 [place]: 168 QRS: 124 QRSD: 102 T: 133 QT: 445 QTc: 433 Interpretive Statements ECTOPIC ATRIAL BRADYCARDIA LEFT POSTERIOR FASCICULAR BLOCK [QRS AXIS > 109, INFERIOR Q] Compared to ECG 05/28/2024 19:31:48 Bradycardia, nonsinus now present Left posterior fascicular block now present Sinus rhythm no longer present Electronically Signed On 09-11-2024 13:09:59 CDT by Zita Abernathy M.D. [id number]
[2024-09-09 23:54] VITALS: BP 147/88; PULSE 57; RESP 16; TEMP 36.5; O2SAT 98; BMI 37.8
--- NOTE | 2024-09-09 23:58 | XRR_ITS ---
PROCEDURE INFORMATION: Exam: XR Chest Exam date and time: 09/10/2024 12:02 AM Age: 49 years old Clinical indication: Chest pressure and chest wall pain; Additional info: Chest pain TECHNIQUE: Imaging protocol: Radiologic exam of the chest. Views: 1 view. COMPARISON: CR XR chest 1V portable [id number] 05/28/2024 7:47 PM FINDINGS: Tubes, catheters and devices: Right chest port terminates near the superior cavoatrial junction. Lungs: Mild right basilar linear atelectasis versus scarring. No consolidation. Pleural spaces: Unremarkable. No pleural effusion. No pneumothorax. Heart/Mediastinum: Borderline cardiomegaly, stable. Bones/joints: Degenerative change along the spine. XR/XR chest 1V portable [id number] IMPRESSION: No acute findings.
--- NOTE | 2024-09-10 00:16 | ED_ITS ---
HPI - Chest Pain 2 General: Chief Complaint: Chest Pain Stated Complaint: CP n/v chemo Time Seen by Provider: 09/10/24 00:12 History of Present Illness: Patient presents to the ER with complaints of chest pain rating down her left arm and nausea that started around 2014 tonight. Patient just darted her first day of first round of chemotherapy through her port today. This is for her colon cancer with metastases. Patient is never had any pain like this before and usually does not have problems with her blood pressure. She said her blood pressure was upwards of 190 a couple times when she checked it the next time it be down more normal. Related Data Home Medications ?Medication ?Instructions ?Recorded ?Confirmed acetaminophen 500 mg tablet 1,000 mg PO Q6H PRN Pain 0 06/04/24 09/08/24 (Tylenol Extra Strength) atorvastatin 40 mg tablet 40 mg PO DAILY 09/02/2402/24 losartan 50 mg-hydrochlorothiazide 0.5 tab PO DAILY 09/08/24 12.5 mg tablet metoprolol tartrate 50 mg tablet 25 mg PO DAILY 09/08/24 Previous Rx's ?Medication ?Instructions ?Recorded ferrous gluconate 324 mg (38 mg 324 mg PO BID #180 tab s 03/01/24 iron) tablet citalopram 20 mg tablet 20 mg PO DAILY #90 tabs 06/03 08/24 metformin 500 mg tablet,extended 500 mg PO BID #180 ta bs 06/24/24 release 24 hr sitagliptin phosphate 100 mg 100 mg PO DAILY #90 tabs 06/24/24 tablet (Januvia) lorazepam 1 mg tablet 0.5 - 1 mg (0.5 - 1 x 1 mg) PO Q6H 08/02/24 PRN severe nausea #30 tabs ondansetron HCl 4 mg tablet 4 mg PO Q6H PRN nausea and 08/02/24 vomiting #30 tabs prochlorperazine maleate 10 mg 10 mg PO Q4H PRN mild n ausea #30 08/02/24 tablet (Compazine) tabs Allergies Allergy/AdvReac Type Severity Reaction Status Date / Time No Known Allergies Allergy Verified 09/09/24 23:57 Review of Systems 2 General: Reports: 10 or more systems reviewed and unremarkable except in HPI and below PFSH ED 2 PFSH: Medical History Mass of colon Colostomy in place Dyslipidemia Benign essential HTN Mild depression DM II (diabetes mellitus, type II), controlled Iron deficiency anemia Morbid (severe) obesity due to excess calories Menorrhagia, premenopausal Surgical History History of cholecystectomy H/O section History of tonsillectomy Family History Mother Cancer CERVICAL CANCER CAD (coronary artery disease) Social History Smoking and tobacco/nicotine status: never used tobacco/nicotine Alcohol intake: never Substance/Drug Use: never Physical Exam 2 Const: COMMON NORMALS: no acute distress, average body habitus, patient oriented x3, no limitations, healthy appearing, alert and well nourished HENMT: COMMON NORMALS: normocephalic, atraumatic, hearing grossly normal bilaterally, external ears normal, Normal external nose present, moist oral mucous membranes and oropharynx normal HEAD & SCALP: normocephalic and atraumatic NOSE: Normal external nose present EXTERNAL EAR: Yes external ears normal Neck/C-Spine: COMMON NORMALS: full ROM, no lymphadenopathy, supple, no meningeal signs and no JVD Chest: COMMONS NORMALS: normal inspection of the chest and normal palpation of entire chest wall Resp: COMMON NORMALS: normal respiratory effort, No retractions, No use of accessory muscles and clear to auscultation bilaterally AUSCULTATION: clear to auscultation bilaterally Cardio: COMMON NORMALS: no JVD, regular rate, regular rhythm, S1 normal heart sound present, S2 normal heart sound present, No gallops present (Cardio), No clicks present (Cardio), No murmurs present (Cardio) and No rub (Cardio) R ATE: regular rate RHYTHM: regular rhythm HEART SOUNDS: S1 normal heart sound present and S2 normal heart sound present GI: COMMON NORMALS: Normal to inspection, nondistended, normoactive bowel sounds present, Soft to palpation, non-tender, No hepatosplenomegaly present and no masses PALPATION: Yes Soft to palpation and Yes No hepatosplenomegaly present Neuro: COMMON NORMALS: patient oriented x3 SENSORIUM/ORIENTATION: Yes alert MENINGEAL SIGNS: Yes no meningeal signs Course 2 Vital Signs: Vital signs: Vital Signs Temperature 97.7 F 09/09/24 23:54 Pulse Rate 69 09/10/24 03:12 Respiratory Rate 22 H 09/10/24 03:12 Blood Pressure 150/62 09/10/24 03:12 Pulse Oximetry 97 09/10/24 03:12 Oxygen Delivery Me thod Room Air 09/09/24 23:54 MDM - Chest Pain Medical Decision Making Patient was worked up in the center chest pain fashion, lab work serial EKGs, all essentially unremarkable. Patient is chronically anemic and on not on her iron tablets while she is on chemo. Patient is given Toradol which seemed to help for her chest pain. Patient be discharged home and is to follow-up with the oncologist tomorrow. Medical Records I reviewed the patient's medical records. Lab Data I reviewed the patient's lab results. 09/10/24 00:21 09/10/24 00:21 Radiology Impressions Chest X-Ray 09/09/24 23:58 IMPRESSION: No acute findings. Laboratory Results WBC 6.94 10^3/uL (3.29-11.43) 09/10/24 00:21 RBC 3.79 10^6/uL (3.85-5.65) L 09/10/24 00:21 Hgb 9.60 g/dL (11.27-16.99) L 09/10/24 00:21 Hct 31.5 % (36-47) L 09/10/24 00:21 MCV 83.1 fl (85-98) L 09/10/24 00:21 MCH 25.3 pg (27-33) L 09/10/24 00:21 MCHC 30.5 g/dL (30-55) 09/10/24 00:21 RDW 20.0 % (12.1-15.1) H 09/10/24 00:21 Plt Count 289 10^3/cmm (157-399) 09/10/24 00:21 MPV 9.5 fL (7.4-10.4) 09/10/24 00:21 Neut % (Auto) 48.1 % 09/10/24 00:21 Lymph % (Auto) 41.2 % 09/10/24 00:21 [place] % (Auto) 9.2 % 09/10/24 00:21 Eos % (Auto) 0.4 % 09/10/24 00:21 Baso % (Auto) 1.0 % 09/10/24 00:21 Neut # (Auto) 3.33 10^3/uL (1.8-7.7) 09/10/24 00:21 Lymph # (Auto) 2.9 10^3/uL (0.8-4.8) 09/10/24 00:21 [place] # (Auto) 0.6 10^3/uL (0.2-0.9) 09/10/24 00:21 Eos # (Auto) 0.0 10^3/uL (0.0-0.8) 09/10/24 00: Baso # (Auto) 0.1 10^3/uL (0.0-0.1) 09/10/24 00:21 Nucleated RBC % (auto) 0 % 09/10/24 00: Nucleated RBCs # 0.0 /100WBC 09/10/24 00:21 Sodium 139 mmol/L (136-145) 09/10/24 00:21 Potassium 3.6 mmol/L (3.5-5.1) 09/10/24 00:21 Chloride 103 mmol/L (98-107) 09/10/24 00: Carbon Dioxide 25 mmol/L (22-29) 09/10/24 00:21 Anion Gap 14.6 (5-19) 09/10/24 00: BUN 20 mg/dL (6-20) 09/10/24 00: Creatinine 0.7 mg/dL (0.5-0.9) 09/10/24 00: GFR Calculation 89.3 mL/min (90-130) L 09/10/24 00:21 Glucose 139 mg/dL (65-115) H 09/10/24 00:21 Calculated Osmolality 293 mOsm/kg (285-295) 09/10/24 00:21 Calcium 9.3 mg/dL (8.5-10.5) 09/10/24 00:21 Magnesium 1.7 mg/dL (1.7-2.3) 09/10/24 00: Total Bilirubin 0.2 mg/dL (0.15-1.2) 09/10/24 00:21 AST 12 U/L (0-32) 09/10/24 00:21 ALT 10 U/L (0-33) 09/10/24 00:21 Alkaline Phosphatase 56 U/L (35-105) 09/10/24 00:21 Troponin T Baseline < 6 ng/L (0-10) 09/10/24 00:21 Troponin T 120 Minute 7.51 ng/L (0-10) 09/10/24 02:21 Delta Troponin T 1.60765 ABS# (0-10) 09/10/24 02:21 Total Protein 6.9 g/dL (6.6-8.7) 09/10/24 00:21 Albumin 3.8 g/dL (3.5-5.2) 09/10/24 00:21 Globulin 3.1 g/dL (1.3-4.6) 09/10/24 00:21 All radiology interpretation(s) finalized by discharge Discharge Plan Discharge Patient Disposition: Home Clinical Impression: Chest pain Qualifiers: Chest pain type: unspecified Qualified Code(s): R07.9 - Chest pain, unspecified Condition: Stable Prescriptions: No Action citalopram 20 mg tablet 20 mg PO DAILY Qty: 90 3RF Rx Instructions: Take 1 tablet by mouth once daily metformin 500 mg tablet extended release 24 hr 500 mg PO BID Qty: 180 3RF Rx Instructions: Take 1 tablet by mouth twice daily Januvia 100 mg tablet 100 mg PO DAILY Qty: 90 3RF ferrous gluconate 324 mg (38 mg iron) tablet 324 mg PO BID Qty: 180 1RF prochlorperazine maleate [Compazine] 10 mg tablet 10 mg PO Q4H PRN (Reason: mild nausea) Qty: 30 3RF ondansetron HCl 4 mg tablet 4 mg PO Q6H PRN (Reason: nausea and vomiting) Qty: 30 3RF lorazepam 1 mg tablet 0.5 - 1 mg PO Q6H PRN (Reason: severe nausea) Qty: 30 3RF metoprolol tartrate 50 mg Tablet 25 mg PO DAILY atorvastatin 40 mg tablet 40 mg PO DAILY Rx Instructions: Take 1 tablet by mouth once daily losartan-hydrochlorothiazide 50-12.5 mg tablet 0.5 tab PO DAILY Rx Instructions: Take ONE HALF tablet by mouth once daily acetaminophen [Tylenol Extra Strength] 500 mg Tablet 1,000 mg PO Q6H PRN (Reason: Pain) Discharge Orders: Discharge ED (Routine); Ordered 09/10/24 Ordered By: Anibal Lopez Referrals: Charlie Demarco PACKING INSPECTOR [Primary Care Provider] - 1 week Patient Instructions: Chest Pain (ED) Activity Restrictions/Additional Instructions: Thank you for choosing [facility] for your healthcare needs today. Please realize that you were seen in the emergency department and that we are providing you with an emergency medical screening exam and this may not be a complete and all exclusive of all testing and/or medical workup we may need to determine your element or severity of your illness. It is very important that you follow-up as instructed with your primary care provider or specialist for the additional evaluation and to discuss your medical treatment plan. You may return to the emergency department should you have concerns or if your condition changes or worsens in any way. Print Language: Cameroonian Coding Level of Care Code ED Career Portals Teacher for Mahesh Heller
[2024-09-10 00:26] LABS: Basophils # 0.1 10^3/uL (0.0-0.1); Eosinophils % 0.4 %; Hematocrit 31.5 % (36-47); Lymphocytes # 2.9 10^3/uL (0.8-4.8); Lymphocytes % 41.2 %; Mean Corpuscular HGB Conc 30.5 g/dL (30-55); Mean Corpuscular Hemoglobin 25.3 pg (27-33); Mean Corpuscular Volume 83.1 fl (85-98); Mean Platelet Volume 9.5 fL (7.4-10.4); Monocytes # 0.6 10^3/uL (0.2-0.9); Monocytes % 9.2 %; Neutrophils # 3.33 10^3/uL (1.8-7.7); Neutrophils % 48.1 %; Nucleated Red Blood Cells % 0 %; Platelet Count 289 10^3/cmm (157-399); Red Blood Count 3.79 10^6/uL (3.85-5.65); White Blood Count 6.94 10^3/uL (3.29-11.43)
[2024-09-10] MEDS: ondansetron 2 mg/ML SDV 2 mL 4 MG IVP (00:27)
[2024-09-10 00:44] LABS: Troponin(5th) Baseline < 6 ng/L (0-10)
[2024-09-10 00:47] LABS: Alanine Aminotransferase 10 U/L (0-33); Albumin Level 3.8 g/dL (3.5-5.2); Alkaline Phosphatase 56 U/L (35-105); Anion Gap 14.6 (5-19); Aspartate Amino Transferase 12 U/L (0-32); Blood Urea Nitrogen 20 mg/dL (6-20); Calcium 9.3 mg/dL (8.5-10.5); Carbon Dioxide 25 mmol/L (22-29); Chloride 103 mmol/L (98-107); Creatinine Clr Calc Pharmacy 96.9723; Globulin 3.1 g/dL (1.3-4.6); Glomerular Filtration Rate 89.3 mL/min (90-130); Glucose 139 mg/dL (65-115); Magnesium 1.7 mg/dL (1.7-2.3); Osmolality Calculated 293 mOsm/kg (285-295); Potassium 3.6 mmol/L (3.5-5.1); Sodium 139 mmol/L (136-145); Total Bilirubin 0.2 mg/dL (0.15-1.2); Total Protein 6.9 g/dL (6.6-8.7)
[2024-09-10] MEDS: ketorolac 30 mg/mL INJ IVP (01:28)
--- NOTE | 2024-09-10 01:58 | ECG_ITS ---
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 Measurements Intervals [place] Rate: 61 P: 150 SC: 169 QRS: 120 QRSD: 103 T: 124 QT: 458 QTc: 464 Interpretive Statements ECTOPIC ATRIAL RHYTHM LEFT POSTERIOR FASCICULAR BLOCK [QRS AXIS > 109, INFERIOR Q] Compared to ECG 09/09/2024 23:50:44 Ectopic atrial rhythm now present Bradycardia, nonsinus no longer present Electronically Signed On 09-11-2024 13:24:37 CDT by Zita Abernathy M.D. [email or web address]
[2024-09-10 02:59] LABS: Troponin 5 2HR 7.51 ng/L (0-10); Troponin 5 2HR Delta 1.51001 ABS# (0-10)
[2024-09-10 03:12] VITALS: BP 150/62; PULSE 69; RESP 22; O2SAT 97
[2024-09-10 03:27] VITALS: BP 150/62; PULSE 87; RESP 20; O2SAT 96
== END 2024-09-10 03:28 | disposition home or self-care (01) ==
PROVIDERS: Emergency Provider Emergency Medicine; PCP Clinical Nurse Specialist Adult Health
DX: R07.9 Chest pain, unspecified (principal); Z79.84 Long term (current) use of oral hypoglycemic drugs; E78.5 Hyperlipidemia, unspecified; I10 Essential (primary) hypertension; E11.9 Type 2 diabetes mellitus without complications
CPT/HCPCS: 36415; 71045; 80053; 83735; 84484; 85025; 93005; 96374; 96375; 99285; J1885; J2405

== ENCOUNTER 2024-09-23 12:15 | Oncology outpatient (recurring) (ONCR) | payer OTHER, SELFPAY ==
[2024-09-08 08:33] LABS: Basophils # 0.1 10^3/uL (0.0-0.1); Eosinophils # 0.3 10^3/uL (0.0-0.8); Eosinophils % 4.4 %; Hematocrit 33.4 % (36-47); Lymphocytes # 2.1 10^3/uL (0.8-4.8); Lymphocytes % 27.5 %; Mean Corpuscular HGB Conc 30.2 g/dL (30-55); Mean Corpuscular Hemoglobin 25.3 pg (27-33); Mean Corpuscular Volume 83.7 fl (85-98); Mean Platelet Volume 9.8 fL (7.4-10.4); Monocytes # 0.5 10^3/uL (0.2-0.9); Monocytes % 6.6 %; Neutrophils # 4.65 10^3/uL (1.8-7.7); Neutrophils % 60.2 %; Nucleated Red Blood Cells % 0 %; Platelet Count 358 10^3/cmm (157-399); Red Blood Count 3.99 10^6/uL (3.85-5.65); White Blood Count 7.72 10^3/uL (3.29-11.43)
[2024-09-08 08:51] LABS: Alanine Aminotransferase 9 U/L (0-33); Albumin Level 3.8 g/dL (3.5-5.2); Alkaline Phosphatase 67 U/L (35-105); Anion Gap 13.5 (5-19); Aspartate Amino Transferase 12 U/L (0-32); Blood Urea Nitrogen 8 mg/dL (6-20); Calcium 8.9 mg/dL (8.5-10.5); Carbon Dioxide 25 mmol/L (22-29); Chloride 104 mmol/L (98-107); Creatinine Clr Calc Pharmacy 113.1344; Globulin 3.3 g/dL (1.3-4.6); Glomerular Filtration Rate 106.7 mL/min (90-130); Glucose 111 mg/dL (65-115); Osmolality Calculated 287 mOsm/kg (285-295); Potassium 3.5 mmol/L (3.5-5.1); Sodium 139 mmol/L (136-145); Total Bilirubin 0.2 mg/dL (0.15-1.2); Total Protein 7.1 g/dL (6.6-8.7)
[2024-09-08] MEDS: dextrose 5% 250 ML 75 ML IV (11:06)
[2024-09-08] MEDS: palonosetron 0.25 mg/5 mL SDV IVP (11:07)
[2024-09-08] MEDS: dexamethasone 4 mg/mL INJ 5 mL 12 MG IVP (11:10)
[2024-09-08] MEDS: leucovorin 720 MG in dextrose 5% 250 ML 80.5 MG IV (11:47)
[2024-09-08 12:18] LABS: Carcinoembryonic Antigen 3.9 ng/mL (0.0-4.7)
[2024-09-08] MEDS: fluorouraciL 50 mg/ml MDV 100 mL 700 MG IVP (14:00)
[2024-09-08] MEDS: fluorouraciL 4,350 MG, elastomeric pump 1 PUMP in sodium chloride 0.9% (100 ml) 5 ML IV (14:10)
[2024-09-08 14:20] VITALS: BP 148/84; PULSE 71; RESP 16; TEMP 36.2; O2SAT 95
[2024-09-10 11:48] VITALS: BP 104/67; PULSE 58; RESP 16; TEMP 36.3; O2SAT 97
[2024-09-15 08:47] LABS: Basophils % 0.7 %; Eosinophils # 0.3 10^3/uL (0.0-0.8); Eosinophils % 5.1 %; Hematocrit 33.5 % (36-47); Lymphocytes # 1.9 10^3/uL (0.8-4.8); Mean Corpuscular HGB Conc 30.7 g/dL (30-55); Mean Corpuscular Hemoglobin 25.8 pg (27-33); Mean Corpuscular Volume 83.8 fl (85-98); Mean Platelet Volume 9.3 fL (7.4-10.4); Monocytes # 0.4 10^3/uL (0.2-0.9); Monocytes % 6.5 %; Neutrophils # 3.42 10^3/uL (1.8-7.7); Neutrophils % 56.5 %; Nucleated Red Blood Cells % 0 %; Platelet Count 289 10^3/cmm (157-399); White Blood Count 6.04 10^3/uL (3.29-11.43)
[2024-09-15 09:00] LABS: Alanine Aminotransferase 6 U/L (0-33); Albumin Level 3.9 g/dL (3.5-5.2); Alkaline Phosphatase 65 U/L (35-105); Aspartate Amino Transferase 7 U/L (0-32); Blood Urea Nitrogen 16 mg/dL (6-20); Calcium 8.8 mg/dL (8.5-10.5); Carbon Dioxide 24 mmol/L (22-29); Chloride 102 mmol/L (98-107); Creatinine Clr Calc Pharmacy 96.9723; Globulin 3.6 g/dL (1.3-4.6); Glomerular Filtration Rate 89.3 mL/min (90-130); Glucose 110 mg/dL (65-115); Osmolality Calculated 288 mOsm/kg (285-295); Sodium 138 mmol/L (136-145); Total Bilirubin 0.2 mg/dL (0.15-1.2); Total Protein 7.5 g/dL (6.6-8.7)
[2024-09-21 08:46] LABS: Basophils # 0.1 10^3/uL (0.0-0.1); Eosinophils # 0.2 10^3/uL (0.0-0.8); Eosinophils % 3.2 %; Hematocrit 33.1 % (36-47); Lymphocytes # 2.2 10^3/uL (0.8-4.8); Lymphocytes % 30.8 %; Mean Corpuscular HGB Conc 31.1 g/dL (30-55); Mean Corpuscular Hemoglobin 25.7 pg (27-33); Mean Corpuscular Volume 82.5 fl (85-98); Mean Platelet Volume 9.3 fL (7.4-10.4); Monocytes # 0.6 10^3/uL (0.2-0.9); Monocytes % 8.9 %; Nucleated Red Blood Cells % 0 %; Platelet Count 260 10^3/cmm (157-399); Red Blood Count 4.01 10^6/uL (3.85-5.65); Red Cell Distribution Width 18.7 % (12.1-15.1); White Blood Count 6.97 10^3/uL (3.29-11.43)
[2024-09-21 09:19] LABS: Carcinoembryonic Antigen 5.2 ng/mL (0.0-4.7)
[2024-09-21 09:30] LABS: Alanine Aminotransferase 9 U/L (0-33); Albumin Level 3.9 g/dL (3.5-5.2); Alkaline Phosphatase 76 U/L (35-105); Anion Gap 15.2 (5-19); Aspartate Amino Transferase 11 U/L (0-32); Blood Urea Nitrogen 12 mg/dL (6-20); Calcium 8.8 mg/dL (8.5-10.5); Carbon Dioxide 26 mmol/L (22-29); Chloride 105 mmol/L (98-107); Creatinine Clr Calc Pharmacy 95.0018; Globulin 3.4 g/dL (1.3-4.6); Glomerular Filtration Rate 89.3 mL/min (90-130); Glucose 122 mg/dL (65-115); Osmolality Calculated 295 mOsm/kg (285-295); Potassium 4.2 mmol/L (3.5-5.1); Sodium 142 mmol/L (136-145); Total Bilirubin 0.2 mg/dL (0.15-1.2); Total Protein 7.3 g/dL (6.6-8.7)
[2024-09-21] MEDS: dexamethasone 4 mg/mL INJ 5 mL 12 MG IVP (11:52)
[2024-09-21] MEDS: palonosetron 0.25 mg/5 mL SDV IVP (11:55)
[2024-09-21] MEDS: dextrose 5% 250 ML 25 ML IV (12:25)
[2024-09-21] MEDS: leucovorin 720 MG in dextrose 5% 250 ML 62.5 MG IV (12:26)
[2024-09-21] MEDS: DEXTROSE 5% IV (12:26)
[2024-09-21] MEDS: OXALIPLATIN IV (12:26)
[2024-09-21] MEDS: fluorouraciL 50 mg/ml MDV 100 mL 700 MG IVP (15:15)
[2024-09-21] MEDS: fluorouraciL 4,350 MG, elastomeric pump 1 PUMP in sodium chloride 0.9% (100 ml) 5 ML IV (15:16)
[2024-09-21 15:49] VITALS: BP 146/74; PULSE 80; RESP 17; TEMP 36.9; O2SAT 96
== END 2024-09-29 23:59 | disposition home or self-care (01) ==
PROVIDERS: Nurse Practitioner Family; PCP Clinical Nurse Specialist Adult Health; Visit Provider Internal Medicine Medical Oncology
DX: Z45.1 Encounter for adjustment and management of infusion pump (principal)
CPT/HCPCS: 36591; 80053; 82378; 85025; 96368; 96375; 96409; 96411; 96413; 96415; 96416; 96417; 96523; J0640; J1100; J2469; J7060; J9190; J9263

== ENCOUNTER 2024-10-28 13:30 | Oncology outpatient (recurring) (ONCR) | payer OTHER, SELFPAY ==
[2024-10-05 09:03] LABS: Basophils # 0.1 10^3/uL (0.0-0.1); Basophils % 0.9 %; Eosinophils # 0.1 10^3/uL (0.0-0.8); Eosinophils % 1.6 %; Hematocrit 35.7 % (36-47); Lymphocytes # 1.9 10^3/uL (0.8-4.8); Lymphocytes % 27.2 %; Mean Corpuscular HGB Conc 31.4 g/dL (30-55); Mean Corpuscular Hemoglobin 25.7 pg (27-33); Mean Corpuscular Volume 82.1 fl (85-98); Mean Platelet Volume 9.2 fL (7.4-10.4); Monocytes # 0.6 10^3/uL (0.2-0.9); Monocytes % 9.2 %; Neutrophils # 4.17 10^3/uL (1.8-7.7); Nucleated Red Blood Cells % 0 %; Platelet Count 197 10^3/cmm (157-399); Red Blood Count 4.35 10^6/uL (3.85-5.65); Red Cell Distribution Width 17.4 % (12.1-15.1); White Blood Count 6.84 10^3/uL (3.29-11.43)
[2024-10-05 09:29] LABS: Carcinoembryonic Antigen 3.9 ng/mL (0.0-4.7)
[2024-10-05 09:40] LABS: Alanine Aminotransferase 15 U/L (0-33); Albumin Level 3.7 g/dL (3.5-5.2); Alkaline Phosphatase 85 U/L (35-105); Anion Gap 12.9 (5-19); Aspartate Amino Transferase 15 U/L (0-32); Blood Urea Nitrogen 13 mg/dL (6-20); Calcium 8.7 mg/dL (8.5-10.5); Carbon Dioxide 26 mmol/L (22-29); Chloride 103 mmol/L (98-107); Creatinine Clr Calc Pharmacy 95.8465; Globulin 3.8 g/dL (1.3-4.6); Glomerular Filtration Rate 89.3 mL/min (90-130); Glucose 108 mg/dL (65-115); Osmolality Calculated 287 mOsm/kg (285-295); Potassium 3.9 mmol/L (3.5-5.1); Sodium 138 mmol/L (136-145); Total Bilirubin 0.2 mg/dL (0.15-1.2); Total Protein 7.5 g/dL (6.6-8.7)
[2024-10-05] MEDS: palonosetron 0.25 mg/5 mL SDV IVP (10:19)
[2024-10-05] MEDS: dexamethasone 4 mg/mL INJ 5 mL 12 MG IVP (10:19)
[2024-10-05] MEDS: dextrose 5% 250 ML 75 ML IV (10:19)
[2024-10-05 10:39] LABS: Ferritin 114 ng/mL (15-150); Iron 46 ug/dL (37-145); Total Iron Binding Capacity 230 mcg/dl; Unsaturated Iron Binding 184 ug/dL (112-347)
[2024-10-05] MEDS: OXALIPLATIN IV (10:53)
[2024-10-05] MEDS: leucovorin 730 MG in dextrose 5% 250 ML 62.5 MG IV (10:53)
[2024-10-05] MEDS: DEXTROSE 5% IV (10:53)
[2024-10-05] MEDS: fluorouraciL 4,400 MG, elastomeric pump 1 PUMP in sodium chloride 0.9% (100 ml) 4 ML IV (13:20)
[2024-10-05] MEDS: fluorouraciL 50 mg/ml MDV 100 mL 750 MG IVP (13:20)
[2024-10-05 13:33] VITALS: BP 126/73; PULSE 88; RESP 16; TEMP 36.6; O2SAT 99
[2024-10-19 08:38] LABS: Basophils % 0.9 %; Eosinophils # 0.1 10^3/uL (0.0-0.8); Eosinophils % 1.3 %; Hematocrit 37.7 % (36-47); Lymphocytes # 1.8 10^3/uL (0.8-4.8); Mean Corpuscular HGB Conc 31.3 g/dL (30-55); Mean Corpuscular Hemoglobin 25.9 pg (27-33); Mean Corpuscular Volume 82.9 fl (85-98); Mean Platelet Volume 9.6 fL (7.4-10.4); Monocytes # 0.5 10^3/uL (0.2-0.9); Monocytes % 11.3 %; Neutrophils % 46.3 %; Nucleated Red Blood Cells % 0 %; Platelet Count 95 10^3/cmm (157-399); Red Blood Count 4.55 10^6/uL (3.85-5.65); Red Cell Distribution Width 17.9 % (12.1-15.1); White Blood Count 4.53 10^3/uL (3.29-11.43)
[2024-10-19 08:58] LABS: Alanine Aminotransferase 43 U/L (0-33); Albumin Level 3.6 g/dL (3.5-5.2); Alkaline Phosphatase 77 U/L (35-105); Anion Gap 12.8 (5-19); Aspartate Amino Transferase 36 U/L (0-32); Blood Urea Nitrogen 13 mg/dL (6-20); Calcium 8.8 mg/dL (8.5-10.5); Carbon Dioxide 25 mmol/L (22-29); Chloride 106 mmol/L (98-107); Creatinine Clr Calc Pharmacy 111.1635; Globulin 3.6 g/dL (1.3-4.6); Glomerular Filtration Rate 106.7 mL/min (90-130); Glucose 100 mg/dL (65-115); Osmolality Calculated 290 mOsm/kg (285-295); Potassium 3.8 mmol/L (3.5-5.1); Sodium 140 mmol/L (136-145); Total Bilirubin 0.2 mg/dL (0.15-1.2); Total Protein 7.2 g/dL (6.6-8.7)
[2024-10-26 08:33] LABS: Basophils % 0.8 %; Eosinophils # 0.1 10^3/uL (0.0-0.8); Eosinophils % 2.7 %; Hematocrit 38.8 % (36-47); Lymphocytes # 1.8 10^3/uL (0.8-4.8); Lymphocytes % 36.4 %; Mean Corpuscular HGB Conc 31.7 g/dL (30-55); Mean Corpuscular Hemoglobin 26.7 pg (27-33); Mean Corpuscular Volume 84.3 fl (85-98); Monocytes # 0.8 10^3/uL (0.2-0.9); Monocytes % 16.8 %; Neutrophils # 2.06 10^3/uL (1.8-7.7); Neutrophils % 42.9 %; Nucleated Red Blood Cells % 0 %; Platelet Count 247 10^3/cmm (157-399); Red Cell Distribution Width 18.6 % (12.1-15.1); White Blood Count 4.81 10^3/uL (3.29-11.43)
[2024-10-26 08:51] LABS: Alanine Aminotransferase 25 U/L (0-33); Albumin Level 3.8 g/dL (3.5-5.2); Alkaline Phosphatase 96 U/L (35-105); Anion Gap 13.2 (5-19); Aspartate Amino Transferase 20 U/L (0-32); Blood Urea Nitrogen 15 mg/dL (6-20); Calcium 9.2 mg/dL (8.5-10.5); Carbon Dioxide 28 mmol/L (22-29); Chloride 102 mmol/L (98-107); Globulin 3.8 g/dL (1.3-4.6); Glomerular Filtration Rate 66.8 mL/min (90-130); Glucose 102 mg/dL (65-115); Osmolality Calculated 289 mOsm/kg (285-295); Potassium 4.2 mmol/L (3.5-5.1); Sodium 139 mmol/L (136-145); Total Bilirubin 0.2 mg/dL (0.15-1.2); Total Protein 7.6 g/dL (6.6-8.7)
[2024-10-26 09:22] LABS: Carcinoembryonic Antigen 7.5 ng/mL (0.0-4.7)
[2024-10-26] MEDS: dextrose 5% 250 ML 75 ML IV (10:24)
[2024-10-26] MEDS: palonosetron 0.25 mg/5 mL SDV IVP (10:25)
[2024-10-26] MEDS: dexamethasone 4 mg/mL INJ 5 mL 12 MG IVP (10:25)
[2024-10-26] MEDS: DEXTROSE 5% IV (11:04)
[2024-10-26] MEDS: OXALIPLATIN IV (11:04)
[2024-10-26] MEDS: leucovorin 730 MG in dextrose 5% 250 ML 62.5 MG IV (11:05)
[2024-10-26] MEDS: fluorouraciL 50 mg/ml MDV 100 mL 750 MG IVP (13:42)
[2024-10-26] MEDS: fluorouraciL 4,400 MG, elastomeric pump 1 PUMP in sodium chloride 0.9% (100 ml) 4 ML IV (13:50)
[2024-10-26 14:00] VITALS: BP 134/75; PULSE 62; RESP 16; TEMP 37.1; O2SAT 96
== END 2024-10-30 23:59 | disposition home or self-care (01) ==
PROVIDERS: Nurse Practitioner Family; PCP Clinical Nurse Specialist Adult Health; Visit Provider Internal Medicine Medical Oncology
DX: Z53.9 Procedure and treatment not carried out, unspecified reason; Z45.1 Encounter for adjustment and management of infusion pump
CPT/HCPCS: 80053; 82378; 82728; 83540; 83550; 85025; 96367; 96368; 96375; 96409; 96411; 96413; 96415; 96416; 96523; J0640; J1100; J2469; J7060; J9190; J9263

== ENCOUNTER → 2024-11-03 10:37 | Outpatient (BNVA) | payer OTHER, SELFPAY | PROVIDERS: PCP Clinical Nurse Specialist Adult Health; Visit Provider Emergency Medicine | DX: J02.9 Acute pharyngitis, unspecified (principal) | CPT/HCPCS: 87071; 87880 ==

== ENCOUNTER 2024-11-11 10:18 | Oncology outpatient (recurring) (ONCR) | payer OTHER, SELFPAY ==
[2024-11-09 07:44] LABS: Basophils % 0.6 %; Eosinophils # 0.1 10^3/uL (0.0-0.8); Eosinophils % 1.3 %; Hematocrit 36.9 % (36-47); Lymphocytes # 1.9 10^3/uL (0.8-4.8); Lymphocytes % 39.2 %; Mean Corpuscular HGB Conc 32.5 g/dL (30-55); Mean Corpuscular Hemoglobin 27.1 pg (27-33); Mean Corpuscular Volume 83.3 fl (85-98); Mean Platelet Volume 9.2 fL (7.4-10.4); Monocytes # 0.4 10^3/uL (0.2-0.9); Monocytes % 9.3 %; Neutrophils # 2.33 10^3/uL (1.8-7.7); Neutrophils % 49.4 %; Nucleated Red Blood Cells % 0 %; Platelet Count 131 10^3/cmm (157-399); Red Blood Count 4.43 10^6/uL (3.85-5.65); Red Cell Distribution Width 17.1 % (12.1-15.1); White Blood Count 4.72 10^3/uL (3.29-11.43)
[2024-11-09 07:57] LABS: Alanine Aminotransferase 20 U/L (0-33); Albumin Level 3.8 g/dL (3.5-5.2); Alkaline Phosphatase 90 U/L (35-105); Anion Gap 13.6 (5-19); Aspartate Amino Transferase 24 U/L (0-32); Blood Urea Nitrogen 13 mg/dL (6-20); Calcium 8.7 mg/dL (8.5-10.5); Carbon Dioxide 24 mmol/L (22-29); Chloride 104 mmol/L (98-107); Ferritin 158 ng/mL (15-150); Globulin 3.5 g/dL (1.3-4.6); Glomerular Filtration Rate 106.7 mL/min (90-130); Glucose 143 mg/dL (65-115); Iron 66 ug/dL (37-145); Osmolality Calculated 289 mOsm/kg (285-295); Percent Saturation 25.5 % (20-50); Potassium 3.6 mmol/L (3.5-5.1); Sodium 138 mmol/L (136-145); Total Bilirubin 0.3 mg/dL (0.15-1.2); Total Iron Binding Capacity 258 mcg/dl; Total Protein 7.3 g/dL (6.6-8.7); Unsaturated Iron Binding 192 ug/dL (112-347)
[2024-11-09] MEDS: dextrose 5% 250 ML 75 ML IV (09:55)
[2024-11-09] MEDS: dexamethasone 4 mg/mL INJ 5 mL 12 MG IVP (09:56)
[2024-11-09] MEDS: palonosetron 0.25 mg/5 mL SDV IVP (09:56)
[2024-11-09] MEDS: leucovorin 730 MG in dextrose 5% 250 ML 62.5 MG IV (10:36)
[2024-11-09] MEDS: oxaliplatin 140 MG in dextrose 5% 250 ML 139 MG IV (10:36)
[2024-11-09] MEDS: fluorouraciL 3,950 MG, elastomeric pump 1 PUMP in sodium chloride 0.9% (100 ml) 13 ML IV (12:55)
[2024-11-09] MEDS: fluorouraciL 50 mg/ml MDV 100 mL 650 MG IVP (12:55)
[2024-11-09 13:06] VITALS: BP 144/81; PULSE 60; RESP 17; TEMP 36.9; O2SAT 96
== END 2024-11-15 10:30 | disposition home or self-care (01) ==
PROVIDERS: Nurse Practitioner Family; PCP Clinical Nurse Specialist Adult Health; Visit Provider Internal Medicine Medical Oncology
DX: Z45.2 Encounter for adjustment and management of vascular access device (principal); Z95.828 Presence of other vascular implants and grafts
CPT/HCPCS: 80053; 82728; 83540; 83550; 85025; 96375; 96411; 96413; 96416; 96417; 96523; J0640; J1100; J2469; J7060; J9190; J9263

== ENCOUNTER 2024-11-15 10:32 | Emergency (ER) | payer OTHER, SELFPAY ==
[2024-11-15] VITALS (11 sets, daily range): BP systolic 94–153; BP diastolic 58–90; PULSE 75–100; RESP 16–25; TEMP 36.8–37.8; O2SAT 94–99; BMI 35.9
--- NOTE | 2024-11-15 11:31 | XRR_ITS ---
PROCEDURE INFORMATION: Exam: XR Chest Exam date and time: 11/15/2024 11:43 AM Age: 49 years old Clinical indication: Cough and dyspnea; Prior surgery; Surgery date: 6+ months; Surgery type: Port; Additional info: Dyspnea/cough TECHNIQUE: Imaging protocol: Radiologic exam of the chest. Views: 1 view. COMPARISON: CR XR chest 1V portable [id number] 09/10/2024 12:02 AM FINDINGS: Tubes, catheters and devices: Right port infusion catheter is present with tip in SVC. Lungs: No acute pulmonary pathology. Suboptimal pulmonary expansion with associated accentuation of bronchovascular markings. Pleural spaces: No pleural effusion. Heart/Mediastinum: Cardiomediastinal contours accentuated by low lung volumes and AP technique. Diaphragm: Elevated right hemidiaphragm. Bones/joints: Bilateral calcification abutting the greater tuberosities of the humerus likely representing calcific tendinitis. XR/XR chest 1V portable [id number] IMPRESSION: No acute pathology or significant interval change given technique.
[2024-11-15 11:59] LABS: Basophils % 0.6 %; Hematocrit 37.5 % (36-47); Lymphocytes # 0.4 10^3/uL (0.8-4.8); Lymphocytes % 26.6 %; Mean Corpuscular HGB Conc 33.1 g/dL (30-55); Mean Corpuscular Hemoglobin 27.9 pg (27-33); Mean Corpuscular Volume 84.3 fl (85-98); Mean Platelet Volume 9.1 fL (7.4-10.4); Monocytes # 0.2 10^3/uL (0.2-0.9); Monocytes % 9.7 %; Neutrophils % 61.8 %; Nucleated Red Blood Cells % 0 %; Platelet Count 126 10^3/cmm (157-399); Red Blood Count 4.45 10^6/uL (3.85-5.65); Red Cell Distribution Width 16.6 % (12.1-15.1); White Blood Count 1.54 10^3/uL (3.29-11.43)
[2024-11-15 12:10] LABS: Alanine Aminotransferase 23 U/L (0-33); Albumin Level 3.6 g/dL (3.5-5.2); Alkaline Phosphatase 85 U/L (35-105); Anion Gap 14.8 (5-19); Aspartate Amino Transferase 23 U/L (0-32); Blood Urea Nitrogen 16 mg/dL (6-20); Carbon Dioxide 24 mmol/L (22-29); Chloride 100 mmol/L (98-107); Creatinine Clr Calc Pharmacy 94.1571; Globulin 4.1 g/dL (1.3-4.6); Glomerular Filtration Rate 89.3 mL/min (90-130); Glucose 111 mg/dL (65-115); Osmolality Calculated 282 mOsm/kg (285-295); Potassium 3.8 mmol/L (3.5-5.1); Sodium 135 mmol/L (136-145); Total Bilirubin 0.6 mg/dL (0.15-1.2); Total Protein 7.7 g/dL (6.6-8.7)
--- NOTE | 2024-11-15 12:12 | ECG_ITS ---
[facility] Test Date: 2024-11-15 Pat Name: Jayna Ricketts Department: Room: Gender: Female Advisory Internship: : 1975 Requested By: Thomas Smalls Order Number: [id number] Shelli MD: Zita Abernathy M.D. Measurements Intervals [place] Rate: 84 P: 18 NV: 170 QRS: 41 QRSD: 94 T: 39 QT: 373 QTc: 442 Interpretive Statements SINUS RHYTHM NONSPECIFIC T-WAVE ABNORMALITY Compared to ECG 09/10/2024 01:53:26 T-wave abnormality now present Ectopic atrial rhythm no longer present Left posterior fascicular block no longer present Electronically Signed On 11-15-2024 21:55:46 CDT by Zita Abernathy M.D. [email or web address]
--- NOTE | 2024-11-15 12:18 | CT_ITS ---
WS: [id number] CT ABDOMEN PELVIS TECHNIQUE: Contrast-enhanced CT of the abdomen and pelvis with coronal and sagittal reformatted images. CLINICAL INFORMATION: abd pain COMPARISON: None. DLP: 847.[address] scans at [facility] use at least one of these dose optimization techniques: automated exposure control; mA and/or kV adjustment per patient size (includes targeted exams where dose is matched to clinical indication); or iterative reconstruction. FINDINGS: LEFT lower quadrant colostomy appears patent. Rectus diastases with RIGHT ventral abdominal wall hernia. Partial colectomy. Air and fluid within the endometrium and uterus. Recommend correlation for infection. Few loculated areas of fluid along the dome of the uterus and bladder some of which may represent small developing abscess. Fluid and air within the bladder with diffuse wall thickening and enhancement. Adhesions with suspected fistula between the bladder and uterus with loss of the normal fat plane. Evidence of cystitis with diffuse bladder wall thickening and enhancement. Evidence of pelvic mesenteric scarring with adhesions in the lower central pelvis. Multiple bowel loops with the bladder and uterus closely position. Fatty liver. Cholecystectomy. Normal portal vein and splenic vein. Normal GE junction. Normal pancreas. Adrenal glands are normal. Normal renal parenchymal enhancement. No hydronephrosis. CT/CT abdomen pelvis w con* [id number] IMPRESSION: 1. Interval partial colectomy with LEFT lower quadrant colostomy which appears patent. 2. Mild induration involving the transverse colon with thickening and enhancem ent. Recommend correlation for colitis. 3. Evidence of diffuse cystitis with bladder wall thickening and enhancement a nd pockets of intraluminal air. 4. Diffuse heterogeneous enhancement of the uterus with endometrial air. A ves icouterine fistula is not excluded. Loss of the normal fat plane between the bl adder and uterus. 5. Bowel loops adhesed to the dome of the bladder suspicious for enterovesical fistula 6. Suspected areas of possibly developing abscess along the dome of the uterus and bladder with a few tiny punctate foci of air. Largest right-sided fluid co llection appears relatively simple measures 4.3 x 2.6 cm with a LEFT sided yamile ection measuring 2.7 cm with a few punctate foci of air. Smaller peripheral enh ancing collections along the dome of the bladder and uterus 7. Cholecystectomy. Notified Thomas Hernandez DO at 11/15/2024 1:23 PM.
[2024-11-15 12:21] LABS: Neutrophils # 0.95 10^3/uL (1.8-7.7)
--- NOTE | 2024-11-15 12:51 | ED_ITS ---
HPI - Fever 2 General: Chief Complaint: Fever Stated Complaint: fever,n,dizzy cemo pt Time Seen by Provider: 11/15/24 11:21 History of Present Illness: 49-year-old female presents emergency ro om with abdominal pain. She is also has been running a fever. She has a history of sigmoid colon cancer for which she currently is on chemotherapy. In June of this year she had a colon resection and has a colostomy. She is currently receiving chemotherapy and is midcycle reports having a fever at home up to 102.5. She has continued to have usual output from her colostomy. Associated symptoms: Reports abdominal pain and chills; Deny chest pain or dysuria Related Data Home Medications ?Medication ?Instructions ?Recorded ?Confirmed acetaminophen 500 mg tablet 1,000 mg PO Q6H PRN Pain 0 06/04/24 11/15/24 (Tylenol Extra Strength) atorvastatin 40 mg tablet 40 mg PO QPM 09/02/24 losartan 50 mg-hydrochlorothiazide 0.5 tab PO DAILY 11/15/24 12.5 mg tablet metoprolol tartrate 50 mg tablet 25 mg PO DAILY 11/15/24 fexofenadine-pseudoephedrine ER 1 tab PO QAM 11/09/24 11/15/24 180 mg-240 mg tablet,ext.release 24 hr (Arianne-D 24 Hour) ferrous gluconate 324 mg (38 mg 324 mg PO BID 11/15/24 11/15/24 iron) tablet Previous Rx's ?Medication ?Instructions ?Recorded citalopram 20 mg tablet 20 mg PO DAILY #90 tabs 06/03 08/24 metformin 500 mg tablet,extended 500 mg PO BID #180 ta bs 06/24/24 release 24 hr lorazepam 1 mg tablet 0.5 - 1 mg (0.5 - 1 x 1 mg) PO Q6H 08/02/24 PRN severe nausea #30 tabs ondansetron HCl 4 mg tablet 4 mg PO Q6H PRN nausea and 08/02/24 vomiting #30 tabs prochlorperazine maleate 10 mg 10 mg PO Q4H PRN mild n ausea #30 08/02/24 tablet (Compazine) tabs tramadol 50 mg tablet 50 mg PO TID PRN pain #30 ta bs 09/10/24 lidocaine HCl 2 % mucosal solution 5 ml mucous membran e Q6H PRN pain 09/21/24 (Lidocaine Viscous) #100 mL sitagliptin phosphate 100 mg 100 mg PO DAILY #90 tabs 09/21/24 tablet (Januvia) Ostomy Bags #10 ea 10/27/24 Allergies Allergy/AdvReac Type Severity Reaction Status Date / Time No Known Allergies Allergy Verified 11/03/24 10:29 Review of Systems 2 Const: Reports: fever(s) and chills Card: Denies: chest pain Resp: Denies: dyspnea GI: Reports: abdominal pain : Denies: dysuria, urinary frequency or urinary urgency Musc: Denies: neck pain or back pain Skin/Breast: Denies: rash PFSH ED 2 PFSH: Medical History Mass of colon Colostomy in place Dyslipidemia Benign essential HTN Mild depression DM II (diabetes mellitus, type II), controlled Iron deficiency anemia Morbid (severe) obesity due to excess calories Menorrhagia, premenopausal Surgical History History of cholecystectomy H/O section History of tonsillectomy Family History Mother Cancer CERVICAL CANCER CAD (coronary artery disease) Social History Smoking and tobacco/nicotine status: never used tobacco/nicotine Alcohol intake: never Substance/Drug Use: never Physical Exam 2 Const: GENERAL APPEARANCE: cooperative ORIENTATION/CONSCIOUSNESS: Yes awake, Yes oriented to person, Yes oriented to place and Yes oriented to time HENMT: COMMON NORMALS: normocephalic, atraumatic and hearing grossly normal bilaterally HEAD & SCALP: normocephalic and atraumatic Resp: COMMON NORMALS: normal respiratory effort, No retractions, No use of accessory muscles and clear to auscultation bilaterally AUSCULTATION: clear to auscultation bilaterally Cardio: COMMON NORMALS: regular rate, regular rhythm and No murmurs present (Cardio) RATE: regular rate RHYTHM: regular rhythm GI: COMMON NORMALS: No hepatosplenomegaly present AUSCULTATION: Yes normoactive bowel sounds PALPATION: Yes Tenderness to palpation present (GI), No Guarding due to palpation present (GI) and Yes No hepatosplenomegaly present Extremity: COMMON NORMALS: normal to inspection, capillary refill normal, no clubbing, cyanosis or edema, no calf tenderness and no pedal edema Neuro: SENSORIUM/ORIENTATION: Yes oriented to person, Yes oriented to place and Yes oriented to time Skin: COMMON NORMALS: no rashes or lesions noted GENERAL SKIN EXAM: no rashes or lesions noted Course 2 Vital Signs: Vital signs: Vital Signs Temperature 98.3 F 11/15/24 13:59 Pulse Rate 79 11/15/24 13:59 Respiratory Rate 16 11/15/24 13:59 Blood Pressure 94/58 11/15/24 13:59 Pulse Oximetry 96 11/15/24 13:59 Oxygen Delivery Me thod Room Air 11/15/24 13:59 MDM - Fever Medical Decision Making Discussed CT with radiology. CT shows air in the bladder and in the uterus there is concern for enterovesicular fistula and possible vesicular uterine fistula. There is also transverse colitis and a UTI. General surgery on-call recommends transfer to facility where she had previously had her colon resection done. Patient cultures done initiated on antibiotics. Medical Records I reviewed the patient's medical records. Lab Data I reviewed the patient's lab results. 11/15/24 11:47 11/15/24 11:47 Radiology Impressions Chest X-Ray 11/15/24 11:31 IMPRESSION: No acute pathology or significant interval change given technique. Abdomen/Pelvis CT 11/15/24 12:18 IMPRESSION: 1. Interval partial colectomy with LEFT lower quadrant colostomy which appears patent. 2. Mild induration involving the transverse colon with thickening and enhancement. Recommend correlation for colitis. 3. Evidence of diffuse cystitis with bladder wall thickening and enhancement and pockets of intraluminal air. 4. Diffuse heterogeneous enhancement of the uterus with endometrial air. A vesicouterine fistula is not excluded. Loss of the normal fat plane between the bladder and uterus. 5. Bowel loops adhesed to the dome of the bladder suspicious for enterovesical fistula 6. Suspected areas of possibly developing abscess along the dome of the uterus and bladder with a few tiny punctate foci of air. Largest right-sided fluid collection appears relatively simple measures 4.3 x 2.6 cm with a LEFT sided collection measuring 2.7 cm with a few punctate foci of air. Smaller peripheral enhancing collections along the dome of the bladder and uterus 7. Cholecystectomy. Notified Thomas Hernandez DO at 11/15/2024 1:23 PM. Laboratory Results WBC 1.54 10^3/uL (3.29-11.43) L 11/15/24 11:47 RBC 4.45 10^6/uL (3.85-5.65) 11/15/24 11:47 Hgb 12.40 g/dL (11.27-16.99) 11/15/24 11:47 Hct 37.5 % (36-47) 11/15/24 11:47 MCV 84.3 fl (85-98) L 11/15/24 11:47 MCH 27.9 pg (27-33) 11/15/24 11:47 MCHC 33.1 g/dL (30-55) 11/15/24 11:47 RDW 16.6 % (12.1-15.1) H 11/15/24 11:47 Plt Count 126 10^3/cmm (157-399) L 11/15/24 11:47 MPV 9.1 fL (7.4-10.4) 11/15/24 11:47 Neut % (Auto) 61.8 % 11/15/24 11:47 Lymph % (Auto) 26.6 % 11/15/24 11:47 [place] % (Auto) 9.7 % 11/15/24 11:47 Eos % (Auto) 0.0 % 11/15/24 11:47 Baso % (Auto) 0.6 % 11/15/24 11:47 Neut # (Auto) 0.95 10^3/uL (1.8-7.7) L* 11/15/24 11:47 Lymph # (Auto) 0.4 10^3/uL (0.8-4.8) L 11/15/24 11:47 [place] # (Auto) 0.2 10^3/uL (0.2-0.9) 11/15/24 11:47 Eos # (Auto) 0.0 10^3/uL (0.0-0.8) 11/15/24 11:47 Baso # (Auto) 0.0 10^3/uL (0.0-0.1) 11/15/24 11:47 Nucleated RBC % (auto) 0 % 11/15/24 11:47 Nucleated RBCs # 0.0 /100WBC 11/15/24 11:47 Sodium 135 mmol/L (136-145) L 11/15/24 11:47 Potassium 3.8 mmol/L (3.5-5.1) 11/15/24 11:47 Chloride 100 mmol/L (98-107) 11/15/24 11:47 Carbon Dioxide 24 mmol/L (22-29) 11/15/24 11:47 Anion Gap 14.8 (5-19) 11/15/24 11:47 BUN 16 mg/dL (6-20) 11/15/24 11:47 Creatinine 0.7 mg/dL (0.5-0.9) 11/15/24 11:47 GFR Calculation 89.3 mL/min (90-130) L 11/15/24 11:47 Glucose 111 mg/dL (65-115) 11/15/24 11:47 Calculated Osmolality 282 mOsm/kg (285-295) L 11/15/24 11:47 Lactic Acid 1.0 mmol/L (0.5-2.2) 11/15/24 11:47 Calcium 9.0 mg/dL (8.5-10.5) 11/15/24 11:47 Total Bilirubin 0.6 mg/dL (0.15-1.2) 11/15/24 11:47 AST 23 U/L (0-32) 11/15/24 11:47 ALT 23 U/L (0-33) 11/15/24 11:47 Alkaline Phosphatase 85 U/L (35-105) 11/15/24 11:47 Total Protein 7.7 g/dL (6.6-8.7) 11/15/24 11:47 Albumin 3.6 g/dL (3.5-5.2) 11/15/24 11:47 Globulin 4.1 g/dL (1.3-4.6) 11/15/24 11:47 Urine Color Yellow (Yellow) 11/15/24 12:31 Urine Appearance Clear (CLEAR) 11/15/24 12:31 Urine pH 6.0 (5-7) 11/15/24 12:31 Ur Specific [place] 1.021 (1.005-1.030) 11/15/24 12:31 Urine Protein 1+ (Negative) A 11/15/24 12:31 Urine Glucose (UA) Negative (Normal) 11/15/24 12:31 Urine Ketones Negative (Negative) 11/15/24 12:31 Urine Blood 1+ (Negative) A 11/15/24 12:31 Urine Nitrate Negative (Negative) 11/15/24 12:31 Urine Bilirubin Negative (Negative) 11/15/24 12:31 Urine Urobilinogen 1.0 mg/dL (Negative) 11/15/24 12:31 Ur Leukocyte Esterase 2+ (Negative) A 11/15/24 12:31 Urine RBC 21-50 /hpf (0-2) H 11/15/24 12:31 Urine WBC >100 /hpf (0-5) H 11/15/24 12:31 Ur Squamous Epith Cells 0-5 /hpf (0-5) 11/15/24 12:31 Amorphous Sediment Not Reportable 11/15/24 12:31 Urine Bacteria None seen /hpf (NONE) 11/15/24 12:31 Hyaline Casts 0.40 /lpf 11/15/24 12:31 Influenza A (PCR) Negative (Negative) 11/15/24 12:00 Influenza Type B (PCR) Negative (Negative) 11/15/24 12:00 RSV (PCR) Negative (Negative) 11/15/24 12:00 SARS-CoV-2 (PCR) Negative (Negative) 11/15/24 12:00 All radiology interpretation(s) finalized by discharge Discharge Plan Discharge Patient Disposition: Xfer Short-Term Hosp Clinical Impression: Cystitis, Colostomy in place, Colonic fistula, 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
[2024-11-15] MEDS: morphine 4 mg/mL SDV 1 mL IVP (12:52)
[2024-11-15] MEDS: ondansetron 2 mg/ML SDV 2 mL 4 MG IVP (12:52)
[2024-11-15] MEDS: sodium chloride 0.9% 1,000 ML 999 ML IV (12:52)
[2024-11-15] MEDS: cefTAZidime 2,000 mg SDV 2000 MG IVP (13:00)
[2024-11-15 13:01] LABS: Bilirubin Urine Negative (Negative); Blood Urine 1+ (Negative); Glucose Urine UA Negative (Normal); Ketones Urine Negative (Negative); Leukocyte Esterase Urine 2+ (Negative); Nitrate Urine Negative (Negative); Protein Urine 1+ (Negative); Specific Gravity, Urine 1.021 (1.005-1.030); Urine Appearance Clear (CLEAR); Urine Color Yellow (Yellow)
[2024-11-15 13:06] LABS: Add Urine Microscopic? YES; Bacteria Urine None Seen /hpf; RBC Urine 21-50 /hpf (0-2); Squamous Epithelial Cell Urine 0-5 /hpf (0-5); WBC Urine >100 /hpf (0-5)
[2024-11-15 13:15] LABS: Add Urine Culture? Yes
[2024-11-15 13:56] LABS: Influenza A NEGATIVE (Negative); Influenza B NEGATIVE (Negative); Respiratory Syncytial Virus Ce NEGATIVE (Negative); SARS-CoV-2 PCR NEGATIVE (Negative)
[2024-11-15] MEDS: metroNIDAZOLE IV 500 MG/100 ML PREMIX 100 MG IV ×2 (13:59→21:33)
[2024-11-15] MEDS: sodium chloride 0.9% 1,000 ML 125 ML IV (18:13)
[2024-11-15] MEDS: cefTAZidime 1,000 mg SDV 1000 MG IVP (20:45)
[2024-11-16] VITALS (148 sets, daily range): BP systolic 101–162; BP diastolic 64–98; PULSE 67–103; RESP 14–28; TEMP 36.5–37.6; O2SAT 90–99
[2024-11-16] MEDS: acetaminophen 500 mg Tablet 1000 MG PO (00:47)
[2024-11-16] MEDS: metroNIDAZOLE IV 500 MG/100 ML PREMIX 100 MG IV ×4 (03:03→19:57)
[2024-11-16] MEDS: sodium chloride 0.9% 1,000 ML 125 ML IV (03:15)
[2024-11-16] MEDS: cefTAZidime 1,000 mg SDV 1000 MG IVP ×3 (04:37→19:57)
[2024-11-16 06:52] LABS: Basophils % 0.6 %; Hematocrit 35.1 % (36-47); Lymphocytes # 0.4 10^3/uL (0.8-4.8); Lymphocytes % 22.1 %; Mean Corpuscular HGB Conc 32.8 g/dL (30-55); Mean Corpuscular Hemoglobin 27.8 pg (27-33); Mean Platelet Volume 9.1 fL (7.4-10.4); Monocytes # 0.2 10^3/uL (0.2-0.9); Monocytes % 10.5 %; Neutrophils # 1.14 10^3/uL (1.8-7.7); Neutrophils % 66.2 %; Nucleated Red Blood Cells % 0 %; Platelet Count 75 10^3/cmm (157-399); Red Blood Count 4.13 10^6/uL (3.85-5.65); Red Cell Distribution Width 16.6 % (12.1-15.1); White Blood Count 1.72 10^3/uL (3.29-11.43)
[2024-11-16 07:10] LABS: Alanine Aminotransferase 17 U/L (0-33); Albumin Level 3.1 g/dL (3.5-5.2); Alkaline Phosphatase 68 U/L (35-105); Blood Urea Nitrogen 12 mg/dL (6-20); Carbon Dioxide 23 mmol/L (22-29); Chloride 104 mmol/L (98-107); Creatinine Clr Calc Pharmacy 94.1571; Globulin 3.5 g/dL (1.3-4.6); Glomerular Filtration Rate 89.3 mL/min (90-130); Glucose 95 mg/dL (65-115); Osmolality Calculated 282 mOsm/kg (285-295); Sodium 136 mmol/L (136-145); Total Bilirubin 0.4 mg/dL (0.15-1.2); Total Protein 6.6 g/dL (6.6-8.7)
[2024-11-16 07:24] LABS: Anion Gap 12.4 (5-19); Aspartate Amino Transferase 21 U/L (0-32); Potassium 3.4 mmol/L (3.5-5.1)
--- NOTE | 2024-11-16 12:23 | PM.CONSULT ---
Providers/Reason For Consult Consulting Physician/Specialty*: Hospitalist Reason for Consult*: medical management Primary Care Provider: Charlie Demarco History of Present Illness History of Present Illness Jayna Ricketts is a 49 year old female ith a history of colon cancer complicated by colovesical fistula (previously repaired), status post colon resection and colostomy, currently on chemotherapy, presenting to the emergency department with fever, dizziness, weakness, and nausea. The patient denies vomiting, diarrhea, blood in stool, black stools, blood in urine, burning urination, and rashes. The patient reports dark stools. There is no swelling in the legs and no pain or tenderness in the abdomen. The patient is awaiting transfer to another facility. Recent ED workup revealed UTI, neutropenia (absolute neutrophil count 950), leukopenia, thrombocytopenia (platelets dropped from 126,000 to 75,000), and findings on CT concerning for possible enterovesical and vesicouterine fistula, transverse colitis, cystitis, and possible early abscess formation. The patient is currently on antibiotics and is being monitored for infection and glucose control. No history of MRSA infection. The patient denies alcohol, tobacco, and illicit drug use. Other medical history includes hypertension, hyperlipidemia, diabetes mellitus type 2, and obesity. Review of Systems Const: Reports: fever(s), fatigue and malaise ENMT: Denies: throat pain Card: Denies: chest pain, edema, pre-syncope or dyspnea on exertion Resp: Denies: dyspnea, productive cough, change in phlegm color or hemoptysis GI: Reports: nausea; Denies: abdominal pain, vomiting, diarrhea, constipation, hematochezia or melena : Denies: flank pain, urinary frequency or hematuria Musc: Denies: back pain, joint swelling or joint redness Skin/Breast: Denies: rash or new lesions Neuro: Denies: headache(s) or confusion Medications/Allergies Home Medications ?Medication ?Instructions ?Recorded ?Confirmed ?Last Taken ?Type acetaminophen 500 mg tablet 1,000 mg PO Q6H PRN Pain 06/04/24 11/15/24 3 Months Ago History (Tylenol Extra Strength) ~06/04/24 citalopram 20 mg tablet 20 mg PO DAILY #90 tabs 06/24/24 11/15/24 11/15/24 Rx metformin 500 mg tablet,extended 500 mg PO BID #180 tabs 06/24/24 11/15/24 11/15/24 Rx release 24 hr lorazepam 1 mg tablet 0.5 - 1 mg (0.5 - 1 x 1 mg) PO Q6H 08/02/24 11/15/24 Unknown Rx PRN severe nausea #30 tabs ondansetron HCl 4 mg tablet 4 mg PO Q6H PRN nausea and 08/02/24 11/15/24 Unknown Rx vomiting #30 tabs prochlorperazine maleate 10 mg 10 mg PO Q4H PRN mild nausea #30 08/02/24 11/15/24 Unknown Rx tablet (Compazine) tabs atorvastatin 40 mg tablet 40 mg PO QPM 09/02/24 11/15/24 11/14/24 History losartan 50 mg-hydrochlorothiazide 0.5 tab PO DAILY 09/02/24 11/15/24 11/15/24 History 12.5 mg tablet metoprolol tartrate 50 mg tablet 25 mg PO DAILY 09/02/24 11/15/24 11/15/24 History tramadol 50 mg tablet 50 mg PO TID PRN pain #30 tabs 09/10/24 11/15/24 Unknown Rx lidocaine HCl 2 % mucosal solution 5 ml mucous membrane Q6H PRN pain 09/21/24 11/15/24 Unknown Rx (Lidocaine Viscous) #100 mL sitagliptin phosphate 100 mg 100 mg PO DAILY #90 tabs 09/21/24 11/15/24 11/15/24 Rx tablet (Januvia) Ostomy Bags #10 ea 10/27/24 11/15/24 Unknown Rx fexofenadine-pseudoephedrine ER 1 tab PO QAM 11/09/24 11/15/24 11/15/24 History 180 mg-240 mg tablet,ext.release 24 hr (Arianne-D 24 Hour) ferrous gluconate 324 mg (38 mg 324 mg PO BID 11/15/24 11/15/24 11/15/24 History iron) tablet Allergies Allergy/AdvReac Type Severity Reaction Status Date / Time No Known Allergies Allergy Verified 11/03/24 10:29 Current Medications Generic Name Dose Route Start Last Admin Trade Name Freq PRN Reason Stop Dose Admin Ceftazidime 1,000 mg 11/15/24 20:45 11/16/24 04:37 Ceftazidime 1,000 Mg Sdv IVP 1,000 mg Q8H EDMUNDO Administration Protocol Sodium Chloride 1,000 mls @ 125 mls/hr 11/15/24 18:15 11/16/24 03:15 Sodium Chloride 0.9% IV 125 mls/hr .Q8H EDMUNDO Administration Metronidazole 500 mg in 100 mls @ 100 mls/hr 11/15/24 20:45 11/16/24 11:13 Flagyl Iv IV Infused Q6H EDMUNDO Infusion Protocol PFSH Acute PFSH: Medical History (Updated 11/16/24 @ 12:48 by Vicente Fiore MD) Port-A-Cath in place Mass of colon Colostomy in place Dyslipidemia Benign essential HTN Mild depression DM II (diabetes mellitus, type II), controlled Iron deficiency anemia Morbid (severe) obesity due to excess calories Menorrhagia, premenopausal Surgical History (Updated 11/16/24 @ 12:48 by Vicente Fiore MD) Hx of colectomy [facility] 06/05/2024- had colostomy placed History of cholecystectomy H/O section History of tonsillectomy Family History Mother Cancer CERVICAL CANCER CAD (coronary artery disease) Social History Smoking and tobacco/nicotine status: never used tobacco/nicotine Alcohol intake: never Substance/Drug Use: never Vitals/I&O/Wt Last Vital Signs Temp 97.7 F 11/16/24 06:43 Pulse 74 11/16/24 11:15 Resp 21 H 11/16/24 10:10 BP 143/73 11/16/24 11:15 Pulse Ox 96 11/16/24 10:10 O2 Del Method Room Air 11/15/24 18:06 11/15/24 11/16/24 11/16/24 22:59 06:59 14:59 Intake Total 200 / 1200 1100 / 2300 100 / 100 Balance 200 / 1200 1100 / 2300 100 / 100 Weight last 48 hrs Weight 83.461 kg Physical Exam Narrative: Reclined in bed. Const: COMMON NORMALS: patient oriented x3 and alert GENERAL APPEARANCE: cooperative ORIENTATION/CONSCIOUSNESS: Yes awake HENMT: COMMON NORMALS: oropharynx normal Neck/C-Spine: COMMON NORMALS: no JVD Resp: COMMON NORMALS: normal respiratory effort and clear to auscultation bilaterally AUSCULTATION: clear to auscultation bilaterally Cardio: COMMON NORMALS: no JVD, regular rhythm, S1 normal heart sound present, S2 normal heart sound present and No murmurs present (Cardio) RHYTHM: regular rhythm HEART SOUNDS: S1 normal heart sound present and S2 normal heart sound present GI: COMMON NORMALS: Normal to inspection, nondistended, normoactive bowel sounds present, Soft to palpation and non-tender PALPATION: Yes Soft to palpation Extremity: COMMON NORMALS: no joint enlargement and no pedal edema Neuro: COMMON NORMALS: patient oriented x3 and moves all extremities SENSORIUM/ORIENTATION: Yes alert Skin: COMMON NORMALS: no rashes or lesions noted GENERAL SKIN EXAM: no rashes or lesions noted Data 11/16/24 06:40 11/16/24 06:40 Micro: Microbiology 11/15/24 12:31 Urine Culture - Preliminary Urine,Clean Catch Gram Negative Rods 11/15/24 12:58 Blood Culture - Preliminary Blood SPECIMEN COLLECTED 11/15/24 13:25 Blood Culture - Preliminary Blood SPECIMEN COLLECTED A&P Assessment and plan (1) Intra-abdominal abscess: History of colon cancer, currently undergoing chemotherapy. Immunocompromise, with neutropenia on presentation, ANC 950, febrile 100.1, with malaise, nausea, fatigue, with finding of transverse colitis, enterovesical fistula and suspected vesicouterine fistula with air, with cystitis, with suspected developing abscess at the dome of the uterus and bladder on review of CT. I reviewed vitals, CBC, CMP, chest x-ray, CT abdomen pelvis, ED provider note, discussed with ED provider. Pending transfer to [facility] for further assessment management. Blood and urine cultures been collected, follow-up. Continue bicarb drip, reasonable coverage with ceftazidime and metronidazole, alternatively consider Zosyn. Monitor for risk of Regalado-Kobe syndrome, C. difficile, DELMA. Requested repeat blood counts, chemistry. NPO. Gentle IV hydration with LR, monitor for risk of fluid overload. Zofran as needed for nausea. SCD VTE prophylaxis, with noted dropping platelets hold off on anticoagulation for now. Reassess thrombocytopenia. (2) Enterovesical fistula: Colon cancer with complications (colovesical and possible vesicouterine fistula, colostomy, on chemotherapy) : Patient with history of colon cancer, prior colovesical fistula repair, status post colon resection and colostomy, currently on chemotherapy. Recent CT shows possible enterovesical and vesicouterine fistula, colitis, and possible early abscess formation. Awaiting transfer to [facility] for further management. - Continue antibiotics as started in ED for intra-abdominal and pelvic infection coverage. - Monitor for signs of abscess or worsening infection. - Await transfer to higher level of care for further evaluation and management. (3) Vesicouterine fistula: (4) Cystitis: Urinary tract infection : Urinalysis in ED showed UTI with significant white and red blood cells. Imaging and clinical findings support infection. - Continue antibiotics with broad coverage for intra-abdominal and urinary pathogens. - follow urine Cx (5) Colitis: CT shows mild induration and thickening of the transverse colon, correlating with colitis. Likely related to infection and/or chemotherapy. - Continue antibiotics. - Monitor for worsening abdominal symptoms. Plan Neutropenia and leukopenia : Initial absolute neutrophil count 950 on review of CBC, with leukopenia. Counts are improving but still low, likely related to chemotherapy and infection. - Monitor white blood cell counts. - Continue infection precautions. Thrombocytopenia : Platelet count dropped from 126,000 to 75,000. Likely multifactorial due to infection, chemotherapy, and underlying malignancy. - Monitor platelet counts. Diabetes mellitus type 2 : History of diabetes, previously on metformin and Januvia. Currently off metformin due to acute illness and NPO status. Glucose being monitored, insulin may be added if needed. - SSI - Monitor blood glucose levels. - Hold metformin for now due to acute illness and NPO status. Hypertension : History of hypertension, monitor BPs Hyperlipidemia : History of hyperlipidemia, normally on statin PDMP PDMP Reviewed: Not Reviewed Consult Attestations Medical Necessity Statement: Awaiting transfer to tertiary facility. and High MDM includes amount and/or complexity of data reviewed/ordered [ previous or external records, resulted lab(s)/test(s), ordered lab(s)/test(s) and other healthcare professional discussion] and described risk of complication, morbidity or mortality of management as documented Diagnoses Intra-abdominal abscess K65.1 Enterovesical fistula N32.1 Vesicouterine fistula N82.1 Cystitis N30.90 Colitis K52.9
--- NOTE | 2024-11-16 13:09 | PC.NURSE ---
called Dr. Fiore to get clarification on maintenance fluid orders. provider ordered for normal saline to titrated to 75ml/hr, until bag of normal saline is finished and then change to the new order that is 75ml/hr of Lactated Ringers
[2024-11-16] MEDS: lidocaine 1% 5 ML in potassium chloride premix 100 ML 52.5 ML IV (14:10)
[2024-11-16 17:35] LABS: Glucose Point of Care 96 mg/dL (70-110)
[2024-11-16] MEDS: lactated ringers 1,000 ML 75 ML IV (22:12)
[2024-11-17] VITALS (7 sets, daily range): BP systolic 147–157; BP diastolic 79–87; PULSE 55–74; RESP 15–24; TEMP 36.5–36.9; O2SAT 93–99
[2024-11-17] MEDS: metroNIDAZOLE IV 500 MG/100 ML PREMIX 100 MG IV ×4 (02:29→19:59)
[2024-11-17] MEDS: cefTAZidime 1,000 mg SDV 1000 MG IVP ×3 (03:52→19:59)
[2024-11-17 04:15] LABS: Basophils % 0.4 %; Eosinophils % 1.1 %; Hematocrit 32.9 % (36-47); Lymphocytes # 0.9 10^3/uL (0.8-4.8); Lymphocytes % 33.2 %; Mean Corpuscular HGB Conc 33.4 g/dL (30-55); Mean Corpuscular Hemoglobin 27.6 pg (27-33); Mean Corpuscular Volume 82.5 fl (85-98); Mean Platelet Volume 9.1 fL (7.4-10.4); Monocytes # 0.4 10^3/uL (0.2-0.9); Monocytes % 15.7 %; Neutrophils # 1.35 10^3/uL (1.8-7.7); Neutrophils % 49.2 %; Nucleated Red Blood Cells % 0 %; Platelet Count 75 10^3/cmm (157-399); Red Blood Count 3.99 10^6/uL (3.85-5.65); Red Cell Distribution Width 16.2 % (12.1-15.1); White Blood Count 2.74 10^3/uL (3.29-11.43)
[2024-11-17 04:35] LABS: Alanine Aminotransferase 18 U/L (0-33); Albumin Level 3.2 g/dL (3.5-5.2); Alkaline Phosphatase 77 U/L (35-105); Anion Gap 13.6 (5-19); Aspartate Amino Transferase 24 U/L (0-32); Blood Urea Nitrogen 11 mg/dL (6-20); Calcium 8.3 mg/dL (8.5-10.5); Carbon Dioxide 22 mmol/L (22-29); Chloride 106 mmol/L (98-107); Globulin 3.7 g/dL (1.3-4.6); Glomerular Filtration Rate 106.7 mL/min (90-130); Glucose 82 mg/dL (65-115); Osmolality Calculated 284 mOsm/kg (285-295); Potassium 3.6 mmol/L (3.5-5.1); Sodium 138 mmol/L (136-145); Total Bilirubin 0.4 mg/dL (0.15-1.2); Total Protein 6.9 g/dL (6.6-8.7)
[2024-11-17] MEDS: ondansetron 2 mg/ML SDV 2 mL 4 MG IVP (08:12)
--- NOTE | 2024-11-17 09:18 | P.PN_ITS ---
Subjective 2 Subjective: She reports she is doing about similar compared to yesterday. No new symptoms today. Vitals/I&O/Wt Last Vital Signs Temp 97.9 F 11/17/24 04:00 Pulse 63 11/17/24 08:00 Resp 24 H 11/17/24 08:00 BP 151/85 11/17/24 04:00 Pulse Ox 94 11/17/24 08:00 O2 Del Method Room Air 11/17/24 04:00 11/16/24 11/17/24 11/17/24 22:59 06:59 14:59 Intake Total 966.25 / 1316.25 100 / 1416.25 Balance 966.25 / 1316.25 100 / 1416.25 Weight last 48 hrs Weight 83.461 kg Physical Exam 2 Narrative: Reclined in bed. Accompanied by her . Const: COMMON NORMALS: patient oriented x3 and alert GENERAL APPEARANCE: c ooperative ORIENTATION/CONSCIOUSNESS: Yes awake HENMT: COMMON NORMALS: oropharynx normal Neck/C-Spine: COMMON NORMALS: no JVD Resp: COMMON NORMALS: normal respiratory effort and clear to auscultation bilaterally AUSCULTATION: clear to auscultation bilaterally Cardio: COMMON NORMALS: no JVD, regular rhythm, S1 normal heart sound present, S2 normal heart sound present and No murmurs present (Cardio) RHYTHM: regular rhythm HEART SOUNDS: S1 normal heart sound present and S2 normal heart sound present GI: COMMON NORMALS: Normal to inspection, nondistended, normoactive bowel sounds present, Soft to palpation and non-tender PALPATION: Yes Soft to palpation Extremity: COMMON NORMALS: no joint enlargement and no pedal edema Neuro: COMMON NORMALS: patient oriented x3 and moves all extremities S ENSORIUM/ORIENTATION: Yes alert Skin: COMMON NORMALS: no rashes or lesions noted GENERAL SKIN EXAM: no rashes or lesions noted Data 11/17/24 04:00 11/17/24 04:00 Micro: Microbiology 11/15/24 12:58 Blood Culture - Preliminary Blood NEGATIVE TO DATE 11/15/24 13:25 Blood Culture - Preliminary Blood NEGATIVE TO DATE 11/15/24 12:31 Urine Culture - Preliminary Urine,Clean Catch Gram Negative Rods A&P Assessment and plan (1) Intra-abdominal abscess: Reviewed vitals, CBC, CMP, blood culture. Discussed with her noted leukopenia about similar to yesterday. Slight improvement in neutropenia up to 1350 ANC. Continue ceftazidime and metronidazole. Reassess renal function. Blood counts. Monitor risk of C. difficile, DELMA, SJS. Awaiting transfer to [facility]. History of colon cancer, currently undergoing chemotherapy. Immunocompromise, with neutropenia on presentation. Blood and urine cultures been collected, follow-up. Reviewed. Urine culture noted with more than 100,000 gram-negative rods NPO. Gentle IV hydration with LR, monitor for risk of fluid overload. Continue LR. DC NS. Zofran as needed for nausea. SCD VTE prophylaxis, with noted dropping platelets hold off on anticoagulation for now. Reassess thrombocytopenia. (2) Enterovesical fistula: Colon cancer with complications (colovesical and possible vesicouterine fistula, colostomy, on chemotherapy) : Patient with history of colon cancer, prior colovesical fistula repair, status post colon resection and colostomy, currently on chemotherapy. Recent CT shows possible enterovesical and vesicouterine fistula, colitis, and possible early abscess formation. Awaiting transfer to [facility] for further management. - Continue antibiotics as started in ED for intra-abdominal and pelvic infection coverage. - Monitor for signs of abscess or worsening infection. - Await transfer to higher level of care for further evaluation and management. (3) Vesicouterine fistula: (4) Cystitis: Urine culture reviewed, noted more than 100,000 gram-negative rods. Follow-up final cultures ID and sensitivity. Continue ceftazidime Urinary tract infection : Urinalysis in ED showed UTI with significant white and red blood cells. Imaging and clinical findings support infection. - Continue antibiotics with broad coverage for intra-abdominal and urinary pathogens. - follow urine Cx (5) Colitis: CT shows mild induration and thickening of the transverse colon, correlating with colitis. Likely related to infection and/or chemotherapy. - Continue antibiotics. - Monitor for worsening abdominal symptoms. Plan Neutropenia and leukopenia : Initial absolute neutrophil count 950 on review of CBC, with improvement. Counts are improving but still low, likely related to chemotherapy and infection. - Monitor white blood cell counts. - Continue infection precautions. Thrombocytopenia : Platelet count dropped from 126,000 to 75,000. Likely multifactorial due to infection, chemotherapy, and underlying malignancy. - Monitor platelet counts. Diabetes mellitus type 2 : Reviewed POC glucose. History of diabetes, previously on metformin and Januvia. Currently off metformin due to acute illness and NPO status. Glucose being monitored, insulin may be added if needed. - SSI - Monitor blood glucose levels. - Hold metformin for now due to acute illness and NPO status. Hypertension : History of hypertension, monitor BPs Hyperlipidemia : History of hyperlipidemia, normally on statin PDMP PDMP Reviewed: Not Reviewed Attestations 2 Medical Necessity Statement*: Continue admission for assessment and management of intrabdominal abscess pending transfer to tertiary facility. Diagnoses Intra-abdominal abscess K65.1 Enterovesical fistula N32.1 Vesicouterine fistula N82.1 Cystitis N30.90 Colitis K52.9
[2024-11-17 09:45] LABS: Glucose Point of Care 92 mg/dL (70-110)
[2024-11-17 10:30] LABS: Bacillus cereus group Not Detected (NOT DETECT); Bacillus subtillis group Not Detected (NOT DETECT); Cutibacterium acnes (P.acnes) Not Detected (NOT DETECT); Enterococcus Not Detected (NOT DETECT); Enterococcus faecalis Not Detected (NOT DETECT); Enterococcus faecium Not Detected (NOT DETECT); Lactobacillus species Not Detected (NOT DETECT); Listeria Not Detected (NOT DETECT); Listeria monocytogenes Not Detected (NOT DETECT); Micrococcus Not Detected (NOT DETECT); Pan Candida Not Detected (NOT DETECT); Pan Gram-Negative Not Detected (NOT DETECT); Staphylococcus epidermidis Not Detected (NOT DETECT); Staphylococcus lugdunensis Not Detected (NOT DETECT); Staphylococcus species Not Detected (NOT DETECT); Streptococcus agalactiae Not Detected (NOT DETECT); Streptococcus anginosus group Not Detected (NOT DETECT); Streptococcus pneumoniae Not Detected (NOT DETECT); Streptococcus pyogenes Not Detected (NOT DETECT); Streptococcus species Not Detected (NOT DETECT)
[2024-11-17 10:57] LABS: Corynebacterium Detected (NOT DETECT)
[2024-11-17] MEDS: lactated ringers 1,000 ML 75 ML IV (12:54)
[2024-11-17 19:20] LABS: Glucose Point of Care 75 mg/dL (70-110)
[2024-11-18] VITALS (7 sets, daily range): BP systolic 144–187; BP diastolic 83–98; PULSE 51–68; RESP 16–19; TEMP 36.5–36.7; O2SAT 96–98
[2024-11-18] MEDS: metroNIDAZOLE IV 500 MG/100 ML PREMIX 100 MG IV ×4 (03:15→22:33)
[2024-11-18] MEDS: lactated ringers 1,000 ML 75 ML IV ×2 (03:21→22:32)
[2024-11-18] MEDS: cefTAZidime 1,000 mg SDV 1000 MG IVP ×3 (04:26→21:36)
[2024-11-18 04:36] LABS: Basophils % 0.9 %; Eosinophils # 0.1 10^3/uL (0.0-0.8); Eosinophils % 3.4 %; Hematocrit 33.2 % (36-47); Lymphocytes # 1.4 10^3/uL (0.8-4.8); Lymphocytes % 42.3 %; Mean Corpuscular HGB Conc 33.4 g/dL (30-55); Mean Corpuscular Hemoglobin 27.5 pg (27-33); Mean Corpuscular Volume 82.4 fl (85-98); Mean Platelet Volume 9.2 fL (7.4-10.4); Monocytes # 0.5 10^3/uL (0.2-0.9); Monocytes % 15.1 %; Neutrophils # 1.23 10^3/uL (1.8-7.7); Nucleated Red Blood Cells % 0 %; Platelet Count 77 10^3/cmm (157-399); Red Blood Count 4.03 10^6/uL (3.85-5.65); Red Cell Distribution Width 16.3 % (12.1-15.1); White Blood Count 3.24 10^3/uL (3.29-11.43)
[2024-11-18 04:55] LABS: Alanine Aminotransferase 17 U/L (0-33); Albumin Level 3.2 g/dL (3.5-5.2); Alkaline Phosphatase 82 U/L (35-105); Anion Gap 15.5 (5-19); Aspartate Amino Transferase 24 U/L (0-32); Blood Urea Nitrogen 10 mg/dL (6-20); Calcium 8.2 mg/dL (8.5-10.5); Carbon Dioxide 21 mmol/L (22-29); Chloride 104 mmol/L (98-107); Globulin 3.6 g/dL (1.3-4.6); Glomerular Filtration Rate 131.7 mL/min (90-130); Glucose 72 mg/dL (65-115); Osmolality Calculated 282 mOsm/kg (285-295); Potassium 3.5 mmol/L (3.5-5.1); Sodium 137 mmol/L (136-145); Total Bilirubin 0.4 mg/dL (0.15-1.2); Total Protein 6.8 g/dL (6.6-8.7)
--- NOTE | 2024-11-18 07:13 | PC.NURSE ---
ASSUMED CARE OF PATIENT FROM HANNAH RUIZ. THIS NURSE ROUNDED ON PATIENT. PATIENT RESTING IN BED QUIETLY WITH EYES CLOSED AND EVEN AND UNLABORED RESPIRATIONS. PATIENT HAS VISITOR IN ROOM WHO IS ALSO RESTING QUIETLY.
--- NOTE | 2024-11-18 08:34 | PC.NURSE ---
BLOOD GLUCOSE FINGER STICK WAS 81. HOLDING INSULIN PER SLIDING SCALE PROTOCOL AT THIS TIME.
[2024-11-18 08:35] LABS: Glucose Point of Care 81 mg/dL (70-110)
--- NOTE | 2024-11-18 09:24 | PC.NURSE ---
[facility] CALLED REQUESTING UPDATE ON PT STATUS. RECENT SET OF VITAL SIGNS GIVEN TO [facility]. [facility] VERBALIZED UNDERSTANDING OF PT STATUS AND STATED THEY WOULD CALL WITH A BED STATUS FOR PT SOON.
--- NOTE | 2024-11-18 11:19 | P.PN_ITS ---
Subjective 2 Subjective: She denies any change in her condition today. No vomiting. She is somewhat hungry and would like to try something by mouth. No abdominal pain. [facility] called and checked on her condition, awaiting bed. Vitals/I&O/Wt Last Vital Signs Temp 97.9 F 11/18/24 08:00 Pulse 65 11/18/24 08:00 Resp 15 11/17/24 12:56 BP 165/86 11/18/24 08:00 Pulse Ox 96 11/18/24 08:00 O2 Del Method Room Air 11/18/24 08:00 11/17/24 11/18/24 11/18/24 22:59 06:59 14:59 Intake Total 200 / 1300 1000 / 2300 0 / 0 Balance 200 / 1300 1000 / 2300 0 / 0 Physical Exam 2 Narrative: Reclined in bed. Accompanied by her . Const: COMMON NORMALS: patient oriented x3 and alert GENERAL APPEARANCE: c ooperative ORIENTATION/CONSCIOUSNESS: Yes awake HENMT: COMMON NORMALS: oropharynx normal Neck/C-Spine: COMMON NORMALS: no JVD Resp: COMMON NORMALS: normal respiratory effort and clear to auscultation bilaterally AUSCULTATION: clear to auscultation bilaterally Cardio: COMMON NORMALS: no JVD, regular rhythm, S1 normal heart sound present, S2 normal heart sound present and No murmurs present (Cardio) RHYTHM: regular rhythm HEART SOUNDS: S1 normal heart sound present and S2 normal heart sound present GI: COMMON NORMALS: Normal to inspection, nondistended, normoactive bowel sounds present, Soft to palpation and non-tender PALPATION: Yes Soft to palpation Extremity: COMMON NORMALS: no joint enlargement and no pedal edema Neuro: COMMON NORMALS: patient oriented x3 and moves all extremities S ENSORIUM/ORIENTATION: Yes alert Skin: COMMON NORMALS: no rashes or lesions noted GENERAL SKIN EXAM: no rashes or lesions noted Data 11/18/24 04:27 11/18/24 04:27 Micro: Microbiology 11/15/24 12:31 Urine Culture - Final Urine,Clean Catch Escherichia coli 11/15/24 12:58 Blood Culture - Preliminary Blood Corynebacterium species A&P Assessment and plan (1) Intra-abdominal abscess: So far without worsening. So far without recurrence of fever. Still neutropenic, ANC 1230 today on review of CBC. Reviewed CMP. Without abdominal pain. Discussed with colorectal surgeon at [facility], abdominal exam is benign. Discussed with her they would not give a definitive answer of whether she can be started on some clear liquid diet, but stated that it would be a reasonable trial. She understands some risks associated with that as discussed before. Knows to let us know in case of worsening symptoms. Continue IV antibiotics. [facility] called to check up on her, awaiting a bed. Reviewed blood culture, urine culture. Blood culture with current bacterium species 1/ bottles, suspect contamination. Urine culture with E. coli resistant to ampicillin, ciprofloxacin, tetracycline, Bactrim, intermediate susceptibility to Levaquin, cefuroxime and Augmentin. Continue ceftazidime and metronidazole. Reviewed chemistry and CBC, reassess. Monitor risk of C. difficile, DELMA, SJS. Awaiting transfer to [facility]. History of colon cancer, currently undergoing chemotherapy. Immunocompromise, with neutropenia on presentation. Blood and urine cultures been collected, follow-up. Reviewed. Urine culture noted with more than 100,000 gram-negative rods NPO. Gentle IV hydration with LR, monitor for risk of fluid overload. Continue LR. DC NS. Zofran as needed for nausea. SCD VTE prophylaxis, with noted dropping platelets hold off on anticoagulation for now. Reassess thrombocytopenia. (2) Enterovesical fistula: Colon cancer with complications (colovesical and possible vesicouterine fistula, colostomy, on chemotherapy) : Patient with history of colon cancer, prior colovesical fistula repair, status post colon resection and colostomy, currently on chemotherapy. Recent CT shows possible enterovesical and vesicouterine fistula, colitis, and possible early abscess formation. Awaiting transfer to [facility] for further management. - Continue antibiotics as started in ED for intra-abdominal and pelvic infection coverage. - Monitor for signs of abscess or worsening infection. - Await transfer to higher level of care for further evaluation and management. (3) Vesicouterine fistula: (4) Cystitis: Urine culture with E. coli resistant to ampicillin, ciprofloxacin, tetracycline, Bactrim, intermediate susceptibility to Levaquin, cefuroxime and Augmentin. Continue ceftazidime Urinary tract infection : Urinalysis in ED showed UTI with significant white and red blood cells. Imaging and clinical findings support infection. - Continue antibiotics with broad coverage for intra-abdominal and urinary pathogens. - follow urine Cx (5) Colitis: CT shows mild induration and thickening of the transverse colon, correlating with colitis. Likely related to infection and/or chemotherapy. - Continue antibiotics. - Monitor for worsening abdominal symptoms. Plan Neutropenia and leukopenia : Initial absolute neutrophil count 950 on review of CBC, with improvement. Counts are improving but still low, likely related to chemotherapy and infection. - Monitor white blood cell counts. - Continue infection precautions. Thrombocytopenia : Platelet count dropped from 126,000 to 75,000. Likely multifactorial due to infection, chemotherapy, and underlying malignancy. - Monitor platelet counts. Diabetes mellitus type 2 : Reviewed POC glucose. History of diabetes, previously on metformin and Januvia. Currently off metformin due to acute illness and NPO status. Glucose being monitored, insulin may be added if needed. - SSI - Monitor blood glucose levels. - Hold metformin for now due to acute illness and NPO status. Hypertension : History of hypertension, monitor BPs Hyperlipidemia : History of hyperlipidemia, normally on statin PDMP PDMP Reviewed: Not Reviewed Attestations 2 Medical Necessity Statement*: Continue hospitalization pending transfer to tertiary facility. and High MDM includes amount and/or complexity of data reviewed/ordered [ previous or external records and resulted lab(s)/test(s)] and described risk of complication, morbidity or mortality of management as documented Diagnoses Intra-abdominal abscess K65.1 Enterovesical fistula N32.1 Vesicouterine fistula N82.1 Cystitis N30.90 Colitis K52.9
[2024-11-18] MEDS: amlodipine 5 mg Tablet PO (12:32)
[2024-11-18] MEDS: citalopram 20 mg Tablet PO (12:32)
--- NOTE | 2024-11-18 15:04 | PC.NURSE ---
THIS NURSE WENT TO HOOK PT BACK UP TO MAINTENANCE FLUIDS WHEN THIS NURSE NOTICED PART OF PRIMARY TUBING WAS STUCK IN ONE OF THE ACCESS POINTS OF THE PORT. THIS NURSE ATTEMPTED TO REMOVE PIECE FROM THE HUB WITH NO SUCCESS. DECISION WAS MADE TO DEACCESS PORT AND RE-ACCESS PORT. PORT WAS DE-ACCESSED, NEEDLE INTACT. PORT WAS RE-ACCESSED WITH NO COMPLICATION USING STERILE PROCEDURE. PORT PATENT AND INTACT.
--- NOTE | 2024-11-18 18:03 | PC.NURSE ---
PT BLOOD GLUCOSE 74. HOLDING SLIDING SCALE INSULIN.
[2024-11-18 18:17] LABS: Glucose Point of Care 74 mg/dL (70-110)
--- NOTE | 2024-11-18 20:41 | PC.NURSE ---
Report was called to Cynthia YOUNG at [facility]. To call back to [phone] for transfer updates.
== END 2024-11-18 21:47 | disposition short-term general hospital (02) ==
PROVIDERS: Internal Medicine; Emergency Provider Family Medicine; PCP Clinical Nurse Specialist Adult Health
DX: N30.90 Cystitis, unspecified without hematuria (principal); K63.2 Fistula of intestine; C18.7 Malignant neoplasm of sigmoid colon; C77.2 Secondary and unspecified malignant neoplasm of intra-abdominal lymph nodes; D70.9 Neutropenia, unspecified; R50.81 Fever presenting with conditions classified elsewhere; Z98.890 Other specified postprocedural states; Z11.52 Encounter for screening for COVID-19; E78.5 Hyperlipidemia, unspecified; I10 Essential (primary) hypertension; E11.9 Type 2 diabetes mellitus without complications
CPT/HCPCS: 36415; 36416; 71045; 74177; 80053; 81001; 82962; 83605; 85025; 87040; 87077; 87086; 87150; 87186; 87205; 87637; 93005; 96365; 96366; 96367; 96375; 99285; J0713; J2270; J2405; J3480; J3490; J7030; J7120; J9999

== ENCOUNTER → 2024-12-20 14:27 | Outpatient (BNVA) | payer OTHER, SELFPAY | PROVIDERS: PCP Clinical Nurse Specialist Adult Health; Visit Provider Clinical Nurse Specialist Adult Health | DX: N39.0 Urinary tract infection, site not specified (principal) | CPT/HCPCS: 81000 ==

== ENCOUNTER 2024-12-30 11:00 | Oncology outpatient (recurring) (ONCR) | payer OTHER, SELFPAY ==
[2024-11-30 08:30] LABS: Hematocrit 36.7 % (36-47); Hemoglobin 11.90 g/dL (11.27-16.99); Mean Corpuscular HGB Conc 32.4 g/dL (30-55); Mean Corpuscular Hemoglobin 29.0 pg (27-33); Mean Corpuscular Volume 89.3 fl (85-98); Nucleated Red Blood Cells % 0 %; Platelet Count 327 10^3/cmm (157-399); Red Blood Count 4.11 10^6/uL (3.85-5.65); White Blood Count 5.01 10^3/uL (3.29-11.43)
[2024-11-30 08:57] LABS: Carcinoembryonic Antigen 8.2 ng/mL (0.0-4.7)
[2024-11-30 09:09] LABS: Alanine Aminotransferase 15 U/L (0-33); Albumin Level 3.5 g/dL (3.5-5.2); Alkaline Phosphatase 81 U/L (35-105); Anion Gap 15.4 (5-19); Aspartate Amino Transferase 25 U/L (0-32); Blood Urea Nitrogen 11 mg/dL (6-20); Calcium 9.4 mg/dL (8.5-10.5); Carbon Dioxide 26 mmol/L (22-29); Chloride 102 mmol/L (98-107); Creatinine Clr Calc Pharmacy 96.9723; Globulin 4.0 g/dL (1.3-4.6); Glucose 104 mg/dL (65-115); Osmolality Calculated 288 mOsm/kg (285-295); Potassium 4.4 mmol/L (3.5-5.1); Sodium 139 mmol/L (136-145); Total Protein 7.5 g/dL (6.6-8.7)
[2024-11-30] MEDS: dexamethasone 4 mg/mL INJ 5 mL 12 MG IVP (09:48)
[2024-11-30] MEDS: leucovorin 740 MG in dextrose 5% 250 ML 62.5 MG IV (10:57)
[2024-11-30 13:07] VITALS: BP 146/79; PULSE 60; TEMP 36.8; O2SAT 92
[2024-11-30] MEDS: fluorouraciL 50 mg/ml MDV 100 mL 750 MG IVP (13:21)
[2024-11-30] MEDS: fluorouraciL 3,550 MG, elastomeric pump 1 PUMP in sodium chloride 0.9% (100 ml) 21 ML IV (13:21)
[2024-12-14 08:32] LABS: Hematocrit 33.8 % (36-47); Hemoglobin 11.20 g/dL (11.27-16.99); Mean Corpuscular HGB Conc 33.1 g/dL (30-55); Mean Corpuscular Hemoglobin 29.9 pg (27-33); Mean Corpuscular Volume 90.4 fl (85-98); Nucleated Red Blood Cells % 0 %; Platelet Count 95 10^3/cmm (157-399); Red Blood Count 3.74 10^6/uL (3.85-5.65); White Blood Count 4.57 10^3/uL (3.29-11.43)
[2024-12-14 08:54] LABS: Carcinoembryonic Antigen 4.5 ng/mL (0.0-4.7)
[2024-12-14 09:05] LABS: Alanine Aminotransferase 16 U/L (0-33); Albumin Level 3.6 g/dL (3.5-5.2); Alkaline Phosphatase 111 U/L (35-105); Anion Gap 12.7 (5-19); Aspartate Amino Transferase 25 U/L (0-32); Blood Urea Nitrogen 9 mg/dL (6-20); Calcium 9.0 mg/dL (8.5-10.5); Carbon Dioxide 25 mmol/L (22-29); Chloride 104 mmol/L (98-107); Creatinine Clr Calc Pharmacy 113.1344; Globulin 3.7 g/dL (1.3-4.6); Glucose 112 mg/dL (65-115); Osmolality Calculated 285 mOsm/kg (285-295); Potassium 3.7 mmol/L (3.5-5.1); Sodium 138 mmol/L (136-145); Total Protein 7.3 g/dL (6.6-8.7)
[2024-12-14] MEDS: aprepitant 130 mg/18 ml SDV IVP (10:09)
[2024-12-14] MEDS: dexamethasone 4 mg/mL INJ 5 mL 12 MG IVP (10:14)
[2024-12-14] MEDS: DEXTROSE 5% IV (10:42)
[2024-12-14] MEDS: leucovorin 740 MG in dextrose 5% 250 ML 62.5 MG IV (10:42)
[2024-12-14] MEDS: OXALIPLATIN IV (10:42)
[2024-12-14 12:13] LABS: Estmated Average Glucose 123; Hemoglobin A1C 5.9 % (4.0-6.0)
[2024-12-14] MEDS: fluorouraciL 50 mg/ml MDV 100 mL 600 MG IVP (13:27)
[2024-12-14] MEDS: fluorouraciL 3,550 MG, elastomeric pump 1 PUMP in sodium chloride 0.9% (100 ml) 21 ML IV (13:38)
[2024-12-14 13:45] VITALS: BP 158/77; PULSE 66; RESP 16; TEMP 36.2; O2SAT 96
[2024-12-28 08:05] LABS: Hematocrit 33.2 % (36-47); Hemoglobin 10.80 g/dL (11.27-16.99); Mean Corpuscular HGB Conc 32.5 g/dL (30-55); Mean Corpuscular Hemoglobin 30.1 pg (27-33); Mean Corpuscular Volume 92.5 fl (85-98); Nucleated Red Blood Cells % 0 %; Platelet Count 106 10^3/cmm (157-399); Red Blood Count 3.59 10^6/uL (3.85-5.65); White Blood Count 3.88 10^3/uL (3.29-11.43)
[2024-12-28 08:26] LABS: Alanine Aminotransferase 23 U/L (0-33); Albumin Level 3.5 g/dL (3.5-5.2); Alkaline Phosphatase 126 U/L (35-105); Anion Gap 14.9 (5-19); Aspartate Amino Transferase 32 U/L (0-32); Blood Urea Nitrogen 11 mg/dL (6-20); Calcium 9.0 mg/dL (8.5-10.5); Carbon Dioxide 26 mmol/L (22-29); Chloride 102 mmol/L (98-107); Creatinine Clr Calc Pharmacy 96.9723; Globulin 3.7 g/dL (1.3-4.6); Glucose 130 mg/dL (65-115); Osmolality Calculated 289 mOsm/kg (285-295); Potassium 3.9 mmol/L (3.5-5.1); Sodium 139 mmol/L (136-145); Total Protein 7.2 g/dL (6.6-8.7)
[2024-12-28] MEDS: aprepitant 130 mg/18 ml SDV IVP (09:58)
[2024-12-28] MEDS: dexamethasone 4 mg/mL INJ 5 mL 12 MG IVP (09:59)
[2024-12-28] MEDS: leucovorin 740 MG in dextrose 5% 250 ML 62.5 MG IV (10:33)
[2024-12-28] MEDS: fluorouraciL 3,550 MG, elastomeric pump 1 PUMP in sodium chloride 0.9% (100 ml) 21 ML IV (12:43)
[2024-12-28] MEDS: fluorouraciL 50 mg/ml MDV 100 mL 750 MG IVP (12:43)
[2024-12-28 12:58] VITALS: BP 139/76; PULSE 57; RESP 18; TEMP 36.6; O2SAT 96
== END 2024-12-30 23:59 | disposition home or self-care (01) ==
PROVIDERS: Nurse Practitioner Family; PCP Clinical Nurse Specialist Adult Health; Visit Provider Internal Medicine Medical Oncology
DX: Z53.9 Procedure and treatment not carried out, unspecified reason; Z45.1 Encounter for adjustment and management of infusion pump
CPT/HCPCS: 80053; 82378; 83036; 85025; 96368; 96375; 96409; 96411; 96413; 96415; 96416; 96417; 96523; J0185; J0640; J1100; J2469; J7060; J9190; J9263

== ENCOUNTER 2025-01-06 07:43 | Day surgery (SDC) | payer OTHER, SELFPAY ==
--- NOTE | 2025-01-06 08:10 | P.HPUD_ITS ---
Surgery/Procedure H&P Update DATE OF PROCEDURE: January 06, 2025 DATE H&P PERFORMED: 12/21/24 H&P UPDATE INFORMATION: I have reviewed H&P completed within last 30 days, I have examined patient prior to procedure, No changes to prior documentation, H&P is in [facility] EMR on date indicated and Risks and benefits of the procedure reviewed PLANNED PROCEDURE: Operation Date: 01/06/25 09:00 Proposed Procedures p Colonoscopy Thru Stoma [id number] G0105 C77.2(Not Applicable) - Manuel Randall MD
--- NOTE | 2025-01-06 08:10 | ANES.PREANE2 ---
Pre-Anesthetic Assessment Height/Weight: Height 1.52 m Operation Date: 01/06/25 09:00 Proposed Procedures p Colonoscopy Thru Stoma 34474 G0105 C77.2(Not Applicable) - Manuel Randall MD Familial anesthetic complications: None Was Beta Stephen taken within 24 hours: N/A Was Clonidine taken within 24 hours: N/A Last intake: > 8 hrs Social No alcohol and No tobacco Exam alert, oriented x 3, clear to auscultation bilaterally and regular rate & rhythm Airway Mallampati: Class IV Dentition: chipped CV/HEM Hypertension GI Colon cancer Metabolic Diabetes Mellitus and Morbid Obesity Anesthetic Plan ASA status: 4 Anesthesia: MAC Risk of > 500 ml blood loss (7ml/kg in children): No Medications/Allergies Home Medications ?Medication ?Instructions ?Recorded ?Confirmed ?Last Taken ?Type acetaminophen 500 mg tablet 1,000 mg PO Q6H PRN Pain 06/04/24 01/06/25 1 Week Ago History (Tylenol Extra Strength) ~12/30/24 metformin 500 mg tablet,extended 500 mg PO BID #180 tabs 06/24/24 01/03/25 01/05/25 Rx release 24 hr lorazepam 1 mg tablet 0.5 - 1 mg (0.5 - 1 x 1 mg) PO Q6H 08/02/24 01/03/25 01/05/25 Rx PRN severe nausea #30 tabs ondansetron HCl 4 mg tablet 4 mg PO Q6H PRN nausea and 08/02/24 01/06/25 01/05/25 Rx vomiting #30 tabs prochlorperazine maleate 10 mg 10 mg PO Q4H PRN mild nausea #30 08/02/24 01/03/25 Unknown Rx tablet (Compazine) tabs atorvastatin 40 mg tablet 40 mg PO QPM 09/02/24 01/03/25 01/05/25 History losartan 50 mg-hydrochlorothiazide 0.5 tab PO DAILY 09/02/24 01/03/25 01/05/25 History 12.5 mg tablet metoprolol tartrate 50 mg tablet 25 mg PO DAILY 09/02/24 01/03/25 01/06/25 06:50 History tramadol 50 mg tablet 50 mg PO TID PRN pain #30 tabs 09/10/24 01/06/25 2 Months Ago Rx ~11/06/24 lidocaine HCl 2 % mucosal solution 5 ml mucous membrane Q6H PRN pain 09/21/24 01/03/25 Unknown Rx (Lidocaine Viscous) #100 mL Ostomy Bags #10 ea 10/27/24 12/28/24 Unknown Rx fexofenadine-pseudoephedrine ER 1 tab PO QAM PRN Allergy Symptoms 11/09/24 01/06/25 1 Month Ago History 180 mg-240 mg tablet,ext.release ~12/06/24 24 hr (Arianne-D 24 Hour) ferrous gluconate 324 mg (38 mg 324 mg PO BID 11/15/24 01/03/25 01/05/25 History iron) tablet cefpodoxime 200 mg tablet 200 mg PO BID 2 weeks #28 tabs 12/20/24 01/03/25 01/05/25 Rx metronidazole 500 mg tablet 500 mg PO TID 2 weeks #42 tabs 12/20/24 01/03/25 01/05/25 Rx citalopram 20 mg tablet 30 mg PO DAILY 01/03/25 01/03/25 01/06/25 06:50 History Allergies Allergy/AdvReac Type Severity Reaction Status Date / Time No Known Allergies Allergy Verified 01/03/25 09:38 [facility] Anesthesia Medical History Recurrent UTI Port-A-Cath in place Mass of colon Colostomy in place Dyslipidemia Benign essential HTN Mild depression DM II (diabetes mellitus, type II), controlled Iron deficiency anemia Morbid (severe) obesity due to excess calories Menorrhagia, premenopausal Surgical History Hx of colectomy [facility] 06/05/2024- had colostomy placed History of cholecystectomy H/O section History of tonsillectomy Family History Mother Cancer CERVICAL CANCER CAD (coronary artery disease) Social History Smoking and tobacco/nicotine status: never used tobacco/nicotine Alcohol intake: never Substance/Drug Use: never
[2025-01-06 08:18] VITALS: BP 126/73; PULSE 68; RESP 18; TEMP 36.5; O2SAT 98; BMI 35.9
[2025-01-06 08:30] LABS: OR HCG Qualitative Urine Negative (Negative)
[2025-01-06 09:21] VITALS: BP 121/72; PULSE 60; RESP 16; TEMP 36.1; O2SAT 98
[2025-01-06 09:37] VITALS: BP 133/72; PULSE 56; RESP 18; O2SAT 98
--- NOTE | 2025-01-06 09:55 | ANE.PACU2 ---
Inpatient post-anesthesia follow up: Airway intact: Yes Vital signs: Temperature 97 F Pulse Rate 56 Respiratory Rate 18 Blood Pressure 133/72 Pulse Oximetry 98 Oxygen Delivery Me thod Room Air Oxygen Flow Rate Fraction of Inspir ed Oxygen Hydration adequate: Yes Nausea and vomiting: No Pain level: 1 Mental status: Baseline
== END 2025-01-06 09:55 | disposition home or self-care (01) ==
PROVIDERS: Anesthesiology; PCP Clinical Nurse Specialist Adult Health; Visit Provider Surgery
PROC: 0DJD8ZZ Inspection of Lower Intestinal Tract, Via Natural or Artificial Opening Endoscopic (ICD-10-PCS; CPT 44388; principal; 2025-01-06 09:00)
DX: Z12.11 Encounter for screening for malignant neoplasm of colon (principal); Z90.49 Acquired absence of other specified parts of digestive tract; Z93.3 Colostomy status; I10 Essential (primary) hypertension; E11.9 Type 2 diabetes mellitus without complications; E66.01 Morbid (severe) obesity due to excess calories; Z68.35 Body mass index [BMI] 35.0-35.9, adult; Z79.84 Long term (current) use of oral hypoglycemic drugs; Z95.828 Presence of other vascular implants and grafts; D50.9 Iron deficiency anemia, unspecified; F32.A Depression, unspecified; E78.5 Hyperlipidemia, unspecified; C18.7 Malignant neoplasm of sigmoid colon; K63.1 Perforation of intestine (nontraumatic)
CPT/HCPCS: 36416; 44388; 81025; 82962; J2704; J7030

== ENCOUNTER → 2025-01-10 13:25 | Outpatient (BNVA) | payer OTHER, SELFPAY | PROVIDERS: PCP Clinical Nurse Specialist Adult Health; Visit Provider Clinical Nurse Specialist Adult Health | DX: N39.0 Urinary tract infection, site not specified (principal) | CPT/HCPCS: 81000; 87086 ==

== ENCOUNTER 2025-01-13 13:01 | Outpatient (CLI) | payer OTHER, SELFPAY ==
--- NOTE | 2025-01-13 13:00 | MM_ITS ---
WS: [id number] SCREENING DIGITAL BREAST TOMOSYNTHESIS MAMMOGRAM WITH CAD HISTORY: SCREENING COMPARISON: 09/17/2016 Bilateral CC and MLO with tomosynthesis and synthetic mammography submitted. Computer aided detection analyzed. Breast composition: There are scattered areas of fibroglandular density. New partially obscured round, Larry related mass of increased density noted in the anterior RIGHT breast. Mass is just lateral and inferior to the nipple at 8-9 o'clock. No additional suspicious masses or calcifications. MM/MM scr BI tomosynthesis [id number] IMPRESSION: BI-RADS: 0 - Incomplete: Need additional imaging evaluation. FOLLOW UP: Need Additional Imaging RIGHT breast: Spot compression views (CC and MLO). True ML. Ultrasound to follo w if abnormality persists.
== END 2025-01-13 13:02 | disposition home or self-care (01) ==
LOC: MOBLMAM 13:02
PROVIDERS: PCP Clinical Nurse Specialist Adult Health; Visit Provider Clinical Nurse Specialist Adult Health
DX: Z12.31 Encounter for screening mammogram for malignant neoplasm of breast (principal); R92.323 Mammographic fibroglandular density, bilateral breasts; N63.12 Unspecified lump in the right breast, upper inner quadrant
CPT/HCPCS: 77063; 77067

== ENCOUNTER → 2025-01-17 10:16 | Outpatient (BNVA) | payer OTHER, SELFPAY | PROVIDERS: PCP Clinical Nurse Specialist Adult Health; Visit Provider Nurse Practitioner Family | DX: C18.7 Malignant neoplasm of sigmoid colon (principal); C77.2 Secondary and unspecified malignant neoplasm of intra-abdominal lymph nodes | CPT/HCPCS: 80053; 85025 ==

== ENCOUNTER 2025-01-27 10:16 | Oncology outpatient (recurring) (ONCR) | payer OTHER, SELFPAY ==
[2025-01-11 07:34] LABS: Hematocrit 31.2 % (36-47); Hemoglobin 10.40 g/dL (11.27-16.99); Mean Corpuscular HGB Conc 33.3 g/dL (30-55); Mean Corpuscular Hemoglobin 31.0 pg (27-33); Mean Corpuscular Volume 92.9 fl (85-98); Nucleated Red Blood Cells % 0 %; Platelet Count 87 10^3/cmm (157-399); Red Blood Count 3.36 10^6/uL (3.85-5.65); White Blood Count 3.60 10^3/uL (3.29-11.43)
[2025-01-11 07:56] LABS: Alanine Aminotransferase 25 U/L (0-33); Albumin Level 3.6 g/dL (3.5-5.2); Alkaline Phosphatase 146 U/L (35-105); Anion Gap 11.7 (5-19); Aspartate Amino Transferase 37 U/L (0-32); Blood Urea Nitrogen 10 mg/dL (6-20); Calcium 9.2 mg/dL (8.5-10.5); Carbon Dioxide 26 mmol/L (22-29); Chloride 104 mmol/L (98-107); Globulin 3.7 g/dL (1.3-4.6); Glucose 137 mg/dL (65-115); Osmolality Calculated 287 mOsm/kg (285-295); Potassium 3.7 mmol/L (3.5-5.1); Sodium 138 mmol/L (136-145); Total Protein 7.3 g/dL (6.6-8.7)
[2025-01-11] MEDS: dexamethasone 4 mg/mL INJ 5 mL 12 MG IVP (09:13)
[2025-01-11] MEDS: leucovorin 730 MG in dextrose 5% 250 ML 62.5 MG IV (09:57)
[2025-01-11] MEDS: fluorouraciL 50 mg/ml MDV 100 mL 750 MG IVP (12:40)
[2025-01-11] MEDS: fluorouraciL 3,500 MG, elastomeric pump 1 PUMP in sodium chloride 0.9% (100 ml) 22 ML IV (12:44)
[2025-01-11 12:47] VITALS: BP 120/75; PULSE 64; RESP 17; TEMP 36.8; O2SAT 95
[2025-01-25 07:44] LABS: Hematocrit 30.5 % (36-47); Hemoglobin 10.30 g/dL (11.27-16.99); Mean Corpuscular HGB Conc 33.8 g/dL (30-55); Mean Corpuscular Hemoglobin 32.1 pg (27-33); Mean Corpuscular Volume 95.0 fl (85-98); Nucleated Red Blood Cells % 0 %; Platelet Count 129 10^3/cmm (157-399); Red Blood Count 3.21 10^6/uL (3.85-5.65); White Blood Count 3.69 10^3/uL (3.29-11.43)
[2025-01-25 08:01] LABS: Alanine Aminotransferase 30 U/L (0-33); Albumin Level 3.5 g/dL (3.5-5.2); Alkaline Phosphatase 172 U/L (35-105); Anion Gap 10.7 (5-19); Aspartate Amino Transferase 34 U/L (0-32); Blood Urea Nitrogen 14 mg/dL (6-20); Calcium 9.1 mg/dL (8.5-10.5); Carbon Dioxide 28 mmol/L (22-29); Chloride 102 mmol/L (98-107); Creatinine Clr Calc Pharmacy 96.4094; Globulin 3.9 g/dL (1.3-4.6); Glucose 160 mg/dL (65-115); Osmolality Calculated 288 mOsm/kg (285-295); Potassium 3.7 mmol/L (3.5-5.1); Sodium 137 mmol/L (136-145); Total Protein 7.4 g/dL (6.6-8.7)
[2025-01-25 08:19] VITALS: BP 120/79; PULSE 63; RESP 17; TEMP 37; O2SAT 98
[2025-01-25] MEDS: dexamethasone 4 mg/mL INJ 5 mL 12 MG IVP (08:30)
[2025-01-25] MEDS: leucovorin 740 MG in dextrose 5% 250 ML 62.5 MG IV (10:16)
[2025-01-25] MEDS: fluorouraciL 50 mg/ml MDV 100 mL 750 MG IVP (12:24)
[2025-01-25] MEDS: fluorouraciL 3,550 MG, elastomeric pump 1 PUMP in sodium chloride 0.9% (100 ml) 21 ML IV (12:24)
== END 2025-01-30 23:59 | disposition home or self-care (01) ==
PROVIDERS: Nurse Practitioner Family; PCP Clinical Nurse Specialist Adult Health; Visit Provider Internal Medicine Medical Oncology
DX: Z53.9 Procedure and treatment not carried out, unspecified reason (principal)
CPT/HCPCS: 80053; 85025; 96367; 96368; 96375; 96409; 96411; 96413; 96415; 96416; 96417; 96523; J0640; J1100; J1453; J7060; J9190; J9263; J9999

== ENCOUNTER 2025-02-01 10:44 | Outpatient (CLI) | payer OTHER, SELFPAY ==
--- NOTE | 2025-02-01 10:45 | MM_ITS ---
WS: [id number] ADDITIONAL VIEWS RIGHT MAMMOGRAM WITH DIGITAL BREAST TOMOSYNTHESIS. RIGHT BREAST ULTRASOUND HISTORY: Spiculated mass RIGHT breast. COMPARISON: 01/13/2025, 09/17/2016 RIGHT MAMMOGRAM: Spot compression views and true ML with digital breast tomosynthesis and SM. Breast composition: There are scattered areas of fibroglandular density. Reidentified is a high density mass with a few calcifications central to the nipple in the anterior breast measures 7 x 6 x 6 mm. No distortion. Margins are slightly indistinct. Mass is of increased density. No nipple retraction. RIGHT BREAST ULTRASOUND 2-D and color Doppler imaging submitted. In the retroareolar RIGHT breast 0.7 x 0.3 x 0.6 cm complex cystic mass is identified which corresponds to the mammographic abnormality. Associated wall calcifications. There is no through transmission or shadowing. Suspect this is probably a duct with inspissated secretions. MM/MM diag RT tomosynthesis [id number] IMPRESSION: BI-RADS: 3 - Probably Benign. FOLLOW UP: 6 Month Follow-up 1. High density mass in the anterior RIGHT breast persists measuring 0.7 x 0.3 x 0.6 cm. Ultrasound suggests this may be a duct with inspissated secretions a nd wall calcification. Recommend 6-month mammogram and ultrasound follow-up. 2. Ultrasound guided biopsy is also an option. After reviewing ultrasound this is thought to be benign.
--- NOTE | 2025-02-01 10:51 | US_ITS ---
WS: [id number] ADDITIONAL VIEWS RIGHT MAMMOGRAM WITH DIGITAL BREAST TOMOSYNTHESIS. RIGHT BREAST ULTRASOUND HISTORY: Spiculated mass RIGHT breast. COMPARISON: 01/13/2025, 09/17/2016 RIGHT MAMMOGRAM: Spot compression views and true ML with digital breast tomosynthesis and SM. Breast composition: There are scattered areas of fibroglandular density. Reidentified is a high density mass with a few calcifications central to the nipple in the anterior breast measures 7 x 6 x 6 mm. No distortion. Margins are slightly indistinct. Mass is of increased density. No nipple retraction. RIGHT BREAST ULTRASOUND 2-D and color Doppler imaging submitted. In the retroareolar RIGHT breast 0.7 x 0.3 x 0.6 cm complex cystic mass is identified which corresponds to the mammographic abnormality. Associated wall calcifications. There is no through transmission or shadowing. Suspect this is probably a duct with inspissated secretions. US/US breast RT limited* [id number] IMPRESSION: BI-RADS: 3 - Probably Benign. FOLLOW UP: 6 Month Follow-up 1. High density mass in the anterior RIGHT breast persists measuring 0.7 x 0.3 x 0.6 cm. Ultrasound suggests this may be a duct with inspissated secretions a nd wall calcification. Recommend 6-month mammogram and ultrasound follow-up. 2. Ultrasound guided biopsy is also an option. After reviewing ultrasound this is thought to be benign.
== END 2025-02-01 10:45 | disposition home or self-care (01) ==
LOC: RAD 10:45
PROVIDERS: PCP Clinical Nurse Specialist Adult Health; Visit Provider Clinical Nurse Specialist Adult Health
DX: N63.41 Unspecified lump in right breast, subareolar (principal)
CPT/HCPCS: 76642; 77061; G0279

== ENCOUNTER 2025-02-24 10:45 | Oncology outpatient (recurring) (ONCR) | payer OTHER, SELFPAY ==
[2025-02-08 08:12] LABS: Hematocrit 30.0 % (36-47); Hemoglobin 10.10 g/dL (11.27-16.99); Mean Corpuscular HGB Conc 33.7 g/dL (30-55); Mean Corpuscular Hemoglobin 32.6 pg (27-33); Mean Corpuscular Volume 96.8 fl (85-98); Nucleated Red Blood Cells % 0 %; Platelet Count 123 10^3/cmm (157-399); Red Blood Count 3.10 10^6/uL (3.85-5.65); White Blood Count 3.49 10^3/uL (3.29-11.43)
[2025-02-08 08:34] LABS: Carcinoembryonic Antigen 4.6 ng/mL (0.0-4.7)
[2025-02-08 08:45] LABS: Alanine Aminotransferase 26 U/L (0-33); Albumin Level 3.5 g/dL (3.5-5.2); Alkaline Phosphatase 179 U/L (35-105); Anion Gap 14.9 (5-19); Aspartate Amino Transferase 32 U/L (0-32); Blood Urea Nitrogen 13 mg/dL (6-20); Calcium 9.2 mg/dL (8.5-10.5); Carbon Dioxide 24 mmol/L (22-29); Chloride 104 mmol/L (98-107); Creatinine Clr Calc Pharmacy 97.2541; Globulin 4.0 g/dL (1.3-4.6); Glucose 148 mg/dL (65-115); Osmolality Calculated 291 mOsm/kg (285-295); Potassium 3.9 mmol/L (3.5-5.1); Sodium 139 mmol/L (136-145); Total Protein 7.5 g/dL (6.6-8.7)
[2025-02-08] MEDS: dexamethasone 4 mg/mL INJ 5 mL 12 MG IVP (09:27)
[2025-02-08 10:26] LABS: Glucose Urine UA Negative (Normal); Nitrate Urine Negative (Negative); Specific Gravity, Urine 1.018 (1.005-1.030)
[2025-02-08 10:31] LABS: Add Urine Microscopic? YES
[2025-02-08] MEDS: leucovorin 740 MG in dextrose 5% 250 ML 145 MG IV (10:53)
[2025-02-08 12:55] VITALS: BP 124/84; PULSE 78; RESP 17; TEMP 36.4; O2SAT 97
[2025-02-08] MEDS: fluorouraciL 50 mg/ml MDV 100 mL 750 MG IVP (13:04)
[2025-02-08] MEDS: fluorouraciL 3,550 MG, elastomeric pump 1 PUMP in sodium chloride 0.9% (100 ml) 21 ML IV (13:05)
[2025-02-22 08:12] LABS: Hematocrit 28.8 % (36-47); Hemoglobin 9.80 g/dL (11.27-16.99); Mean Corpuscular HGB Conc 34.0 g/dL (30-55); Mean Corpuscular Hemoglobin 32.7 pg (27-33); Mean Corpuscular Volume 96.0 fl (85-98); Platelet Count 100 10^3/cmm (157-399); Red Blood Count 3.00 10^6/uL (3.85-5.65); White Blood Count 2.74 10^3/uL (3.29-11.43)
[2025-02-22 08:36] LABS: Carcinoembryonic Antigen 3.4 ng/mL (0.0-4.7)
[2025-02-22 08:47] LABS: Alanine Aminotransferase 28 U/L (0-33); Albumin Level 3.5 g/dL (3.5-5.2); Alkaline Phosphatase 186 U/L (35-105); Anion Gap 12.7 (5-19); Aspartate Amino Transferase 34 U/L (0-32); Blood Urea Nitrogen 13 mg/dL (6-20); Calcium 9.6 mg/dL (8.5-10.5); Carbon Dioxide 27 mmol/L (22-29); Chloride 104 mmol/L (98-107); Creatinine Clr Calc Pharmacy 97.8170; Globulin 3.8 g/dL (1.3-4.6); Glucose 154 mg/dL (65-115); Osmolality Calculated 293 mOsm/kg (285-295); Potassium 3.7 mmol/L (3.5-5.1); Sodium 140 mmol/L (136-145); Total Protein 7.3 g/dL (6.6-8.7)
[2025-02-22 08:57] LABS: Slide Review Slide Review Perform
[2025-02-22 08:58] LABS: Absolute Segmented Neutrophil 0.8 10/cmm (1.6-7.1); Atypical Lymphs 20.0 % (0-5); Band Neutrophils Absolute 0.2 10^3/cmm (0.0-1.2); Total Cells Counted 100 (0-100)
[2025-02-22] MEDS: dexamethasone 4 mg/mL INJ 5 mL 12 MG IVP (09:30)
[2025-02-22] MEDS: leucovorin 740 MG in dextrose 5% 250 ML 62.5 MG IV (10:15)
[2025-02-22 10:20] LABS: Glucose Urine UA Negative (Normal); Nitrate Urine Negative (Negative); Specific Gravity, Urine 1.026 (1.005-1.030)
[2025-02-22 10:23] LABS: Add Urine Microscopic? YES
[2025-02-22 10:42] LABS: UA Manual Slide Review YES; UA Slide Review UA Slide Review Perf
[2025-02-22] MEDS: fluorouraciL 50 mg/ml MDV 100 mL 750 MG IVP (12:20)
[2025-02-22] MEDS: fluorouraciL 3,550 MG, elastomeric pump 1 PUMP in sodium chloride 0.9% (100 ml) 21 ML IV (12:26)
== END 2025-03-01 23:59 | disposition home or self-care (01) ==
PROVIDERS: Nurse Practitioner Family; PCP Clinical Nurse Specialist Adult Health; Visit Provider Internal Medicine Medical Oncology
DX: Z53.9 Procedure and treatment not carried out, unspecified reason; Z45.1 Encounter for adjustment and management of infusion pump
CPT/HCPCS: 80053; 81001; 82378; 85007; 85025; 87077; 87086; 87186; 96367; 96368; 96375; 96409; 96411; 96413; 96415; 96416; 96417; 96523; J0640; J1100; J1453; J7060; J9190; J9263; J9999

== ENCOUNTER 2025-03-01 19:03 | Inpatient (IN) | payer OTHER, SELFPAY ==
[2025-03-01 19:31] VITALS: BP 93/58; PULSE 95; RESP 18; TEMP 36.9; O2SAT 94; BMI 37.8
--- NOTE | 2025-03-01 20:42 | CTR_ITS ---
PROCEDURE INFORMATION: Exam: CT Abdomen And Pelvis With Contrast Exam date and time: 03/01/2025 9:43 PM Age: 49 years old Clinical indication: Abdominal pain; Generalized TECHNIQUE: Imaging protocol: Computed tomography of the abdomen and pelvis with contrast. Radiation optimization: All CT scans at this facility use at least one of these dose optimization techniques: automated exposure control; mA and/or kV adjustment per patient size (includes targeted exams where dose is matched to clinical indication); or iterative reconstruction. Contrast material: OMNIPAQUE 350; Contrast volume: 100 ml; Contrast route: INTRAVENOUS (IV); COMPARISON: CT abdomen pelvis w con* [id number] 11/15/2024 12:40 PM RADIATION DOSE METRICS: Total DLP (mGy-cm): 968.83 FINDINGS: Lungs: Centrally calcified right lower lobe nodule. Liver: Normal. No mass. Gallbladder and biliary ducts: The gallbladder is surgically absent. No biliary ductal dilation. Pancreas: No main pancreatic duct dilation. Homogeneous pancreatic enhancement. Spleen: No splenomegaly. Adrenal glands: No adrenal nodule. Kidneys and ureters: Symmetric nephrograms. No hydronephrosis. Stomach and bowel: No bowel obstruction. Enteric contrast material is seen throughout the small bowel. There is a left lower quadrant colostomy. There is a wide mouth ventral hernia containing multiple loops of nonobstructed bowel. Appendix: No evidence of appendicitis. Pelvis: There is diffuse urinary bladder wall thickening. There are no foci of gas within the bladder the current exam. There is a rim enhancing fluid collection between the uterus in the bladder which measures approximately 2.8 x 3.1 x 3.2 cm. There is loss of the fat plane between multiple loops of small bowel in the uterus and bladder. The enteric contrast is located proximal to these loops of bowel. There are multiple additional small abscesses in the pelvis in close proximity to the uterus and bladder. For example, a collection along the anterior aspect of the bladder measuring 2.1 x 2.3 x 1.5 cm. Vasculature: Unremarkable. No abdominal aortic aneurysm. Lymph nodes: Unremarkable. No enlarged lymph nodes. Bones/joints: Unremarkable. No acute fracture. Soft tissues: Wide-mouth ventral hernia containing loops of nonobstructive bowel. CT/CT abdomen pelvis w con* [id number] IMPRESSION: 1. There is an abscess located between the uterus and the bladder measuring 2.8 x 3.1 x 3.2 cm. Multiple additional small abscesses are present in the pelvis in close proximity to the uterus and bladder. There is diffuse thickening of the urinary bladder wall. 2. There is loss of the fat plane between the uterus and bladder as well as loops of small bowel with the bladder. There is no gas seen within the uterus or bladder on the current exam. Enteric contrast is located more proximal to the loops of bowel which are closely apposed to the uterus/bladder. Fistula can not be ruled out.
[2025-03-01 20:44] LABS: Hematocrit 28.1 % (36-47); Hemoglobin 9.70 g/dL (11.27-16.99); Mean Corpuscular HGB Conc 34.5 g/dL (30-55); Mean Corpuscular Hemoglobin 32.7 pg (27-33); Mean Corpuscular Volume 94.6 fl (85-98); Nucleated Red Blood Cells % 0 %; Platelet Count 51 10^3/cmm (157-399); Red Blood Count 2.97 10^6/uL (3.85-5.65); White Blood Count 3.20 10^3/uL (3.29-11.43)
[2025-03-01] MEDS: iohexol 350 mg/mL 500 mL Btl (per mL) PO (20:55)
[2025-03-01] MEDS: cefTRIAXone 2,000 mg SDV 2000 MG IVP (21:01)
[2025-03-01 21:07] VITALS: BP 78/60; PULSE 93; RESP 17; O2SAT 96
[2025-03-01 21:13] LABS: HCG, Serum Qual Negative (Negative)
[2025-03-01 21:15] LABS: Slide Review Slide Review Perform
[2025-03-01 21:17] LABS: Lactic Sepsis W/Reflex 1.6 mmol/L (0.5-2.2)
[2025-03-01 21:18] LABS: Alanine Aminotransferase 26 U/L (0-33); Albumin Level 3.2 g/dL (3.5-5.2); Alkaline Phosphatase 133 U/L (35-105); Anion Gap 12.5 (5-19); Aspartate Amino Transferase 36 U/L (0-32); Blood Urea Nitrogen 18 mg/dL (6-20); Calcium 8.7 mg/dL (8.5-10.5); Carbon Dioxide 21 mmol/L (22-29); Chloride 103 mmol/L (98-107); Creatinine Clr Calc Pharmacy 75.4229; Globulin 4.0 g/dL (1.3-4.6); Glucose 120 mg/dL (65-115); Osmolality Calculated 279 mOsm/kg (285-295); Potassium 3.5 mmol/L (3.5-5.1); Sodium 133 mmol/L (136-145); Total Protein 7.2 g/dL (6.6-8.7)
[2025-03-01 21:35] LABS: UA Manual Slide Review YES
[2025-03-01] MEDS: iohexol 350 mg/mL 500 mL Btl (per mL) IV (21:47)
[2025-03-01 22:00] VITALS: BP 115/56; PULSE 77; RESP 26; O2SAT 97
[2025-03-01 23:00] VITALS: BP 98/65; PULSE 81; RESP 19; O2SAT 97
[2025-03-01] MEDS: piperacillin-tazobactam 3.375 GM in sodium chloride 0.9% (plus) 50 ML IV (23:06)
--- NOTE | 2025-03-01 23:44 | W.ED.FEMALGU ---
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 Reports nausea, lower abdominal pain, bilateral flank pain radiating toward the kidneys, gross hematuria, lightheadedness, and staggering at home. States prior urine culture (02/22) grew Escherichia coli; has been taking ciprofloxacin. Took acetaminophen and ibuprofen for symptoms. Patient reports known fistula involvement between uterus, bladder, and small intestine; ongoing difficulties arranging surgical care due to insurance. Review of systems notable for fever/chills, nausea, back/flank pain, suprapubic pain, hematuria, lightheadedness; no additional ROS details provided. Related Data Home Medications ?Medication ?Instructions ?Recorded ?Confirmed acetaminophen 500 mg tablet 1,000 mg PO Q6H PRN Pain 06/04/24 02/22/25 (Tylenol Extra Strength) atorvastatin 40 mg tablet 40 mg PO QPM 09/02/24 02/22/25 losartan 50 mg-hydrochlorothiazide 0.5 tab PO DAILY 09/02/24 02/22/25 12.5 mg tablet metoprolol tartrate 50 mg tablet 25 mg PO DAILY 09/02/24 02/22/25 fexofenadine-pseudoephedrine ER 1 tab PO QAM PRN Allergy Symptoms 11/09/24 02/22/25 180 mg-240 mg tablet,ext.release 24 hr (Arianne-D 24 Hour) ferrous gluconate 324 mg (38 mg 324 mg PO BID 11/15/24 02/22/25 iron) tablet citalopram 20 mg tablet 30 mg PO DAILY 01/03/25 02/22/25 Previous Rx's ?Medication ?Instructions ?Recorded metformin 500 mg tablet,extended 500 mg PO BID #180 tabs 06/24/24 release 24 hr lorazepam 1 mg tablet 0.5 - 1 mg (0.5 - 1 x 1 mg) PO Q6H 08/02/24 PRN severe nausea #30 tabs ondansetron HCl 4 mg tablet 4 mg PO Q6H PRN nausea and 08/02/24 vomiting #30 tabs prochlorperazine maleate 10 mg 10 mg PO Q4H PRN mild nausea #30 08/02/24 tablet (Compazine) tabs tramadol 50 mg tablet 50 mg PO TID PRN pain #30 tabs 09/10/24 lidocaine HCl 2 % mucosal solution 5 ml mucous membrane Q6H PRN pain 09/21/24 (Lidocaine Viscous) #100 mL Ostomy Bags #10 ea 10/27/24 metronidazole 500 mg tablet 500 mg PO TID 2 weeks #42 tabs 12/20/24 cephalexin 500 mg capsule 500 mg PO BID 7 days #14 caps 02/08/25 ciprofloxacin HCl 500 mg tablet 500 mg PO BID 7 days #14 tabs 02/28/25 Allergies Allergy/AdvReac Type Severity Reaction Status Date / Time No Known Allergies Allergy Verified 03/01/25 19:37 [facility] PFSH: Medical History (Updated 03/01/25 @ 22:57 by Nicko Moon MD) Recurrent UTI Port-A-Cath in place Mass of colon Colostomy in place Dyslipidemia Benign essential HTN Mild depression DM II (diabetes mellitus, type II), controlled Iron deficiency anemia Morbid (severe) obesity due to excess calories Menorrhagia, premenopausal Surgical History Hx of colectomy [facility] 06/05/2024- had colostomy placed History of cholecystectomy H/O section History of tonsillectomy Family History Mother Cancer CERVICAL CANCER CAD (coronary artery disease) Social History Smoking and tobacco/nicotine status: never used tobacco/nicotine Alcohol intake: never Substance/Drug Use: never Physical Exam Const: COMMON NORMALS: no acute distress, patient oriented x3 and alert HENMT: COMMON NORMALS: normocephalic and atraumatic HEAD & SCALP: normocephalic and atraumatic Eye: COMMON NORMALS: Equal, round and reactive pupils present, EOMs intact bilaterally and no scleral icterus PUPIL: Yes Equal, round and reactive pupils present Resp: COMMON NORMALS: normal respiratory effort and No retractions Cardio: COMMON NORMALS: regular rate, regular rhythm and No murmurs present (Cardio) RATE: regular rate RHYTHM: regular rhythm GI: OTHER: Mild suprapubic tenderness and bilateral flank tenderness to palpation. Normal bowel sounds. Neuro: COMMON NORMALS: patient oriented x3 SENSORIUM/ORIENTATION: Yes alert Skin: COMMON NORMALS: no rashes or lesions noted GENERAL SKIN EXAM: no rashes or lesions noted Course Vital Signs: Vital signs: Vital Signs Temperature 98.5 F 03/01/25 19:31 Pulse Rate 81 03/01/25 23:00 Respiratory Rate 19 H 03/01/25 23:00 Blood Pressure 98/65 03/01/25 23:00 Pulse Oximetry 97 03/01/25 23:00 Oxygen Delivery Me thod Room Air 03/01/25 23:00 MDM - Female Medical Decision Making 49-year-old female with history of sigmoid colon cancer, colovesical fistula, and recurrent urinary tract infections presents with fever, chills, nausea, hematuria, suprapubic pain, and bilateral flank pain; reports lightheadedness and staggering. Recent urine culture grew Escherichia coli; currently on ciprofloxacin. Borderline tachycardia noted. Physical examination with suprapubic tenderness and bilateral costovertebral angle/flank tenderness; patient alert and oriented. Pertinent Labs: prior urine culture (02/22) positive for Escherichia coli; sensitivities to be reviewed. Pertinent Imaging: prior CT in October showed fistula; earlier CT (06/15) without metastatic disease. Differential diagnosis includes pyelonephritis with sepsis in the setting of a urinary-enteric fistula; complicated urinary tract infection. Ongoing fistula likely source; antibiotics may suffice versus need for surgical source control as discussed. Plan: Treat for sepsis from pyelonephritis; review culture sensitivities to confirm ciprofloxacin coverage; obtain updated CT abdomen/pelvis (oral contrast discussed) today. CT of the abdomen pelvis shows a 2 x 3 x 3 cm intra-abdominal abscess. I contacted Dr. Gonzalez who was her attending surgeon at [facility], at the time she had her sigmoidectomy and colostomy performed. He informed me that this abscess is too small for interventional radiology to place a drain in and that even if she were to be transferred to their facility, she would only receive IV antibiotics and then a subsequent CT scan to make sure that the abscess was responding to IV therapy. As such, he did not recommend transfer at this time. Additionally, he confirms that she is not eligible for nonemergent surgery at their facility and that future surgical plans should be made elsewhere. She had been told to look at [facility] in [facility]. Review of the her most recent urine culture shows that her E. coli infection was resistant to ciprofloxacin but susceptible to ceftriaxone. She was given a first dose of ceftriaxone here in the emergency department before CT scan results were available. She will also receive IV Zosyn for intra-abdominal infection and I spoke with the hospitalist service who graciously agrees to meet the patient for IV antibiotics. Patient is agreeable to the plan. Initially soft blood pressure responded well to IV fluids and after 1 L of normal saline has a consistent mean arterial pressure of 75 or above. Lab Data 03/01/25 20:30 03/01/25: Radiology Impressions Abdomen/Pelvis CT 03/01/25 20: IMPRESSION: 1. There is an abscess located between the uterus and the bladder measuring 2.8 x 3.1 x 3.2 cm. Multiple additional small abscesses are present in the pelvis in close proximity to the uterus and bladder. There is diffuse thickening of the urinary bladder wall. 2. There is loss of the fat plane between the uterus and bladder as well as loops of small bowel with the bladder. There is no gas seen within the uterus or bladder on the current exam. Enteric contrast is located more proximal to the loops of bowel which are closely apposed to the uterus/bladder. Fistula can not be ruled out. Laboratory Results WBC 3.20 10^3/uL (3.29-11.43) L 03/01/25 20: RBC 2.97 10^6/uL (3.85-5.65) L 03/01/25 20:30 Hgb 9.70 g/dL (11.27-16.99) L 03/01/25 20: Hct 28.1 % (36-47) L 03/01/25 20: MCV 94.6 fl (85-98) 03/01/25 20: MCH 32.7 pg (27-33) 03/01/25: MCHC 34.5 g/dL (30-55) 03/01/25: RDW 14.3 % (12.1-15.1) 03/01/25: Plt Count 51 10^3/cmm (157-399) L 03/01/25 20:30 MPV 10.7 fL (7.4-10.4) H 03/01/25 20:30 Neut % (Auto) 72.6 % 03/01/25 20:30 Lymph % (Auto) 20.3 % 03/01/25 20:30 Cole % (Auto) 5.6 % 03/01/25 20:30 Eos % (Auto) 0.3 % 03/01/25 20:30 Baso % (Auto) 0.3 % 03/01/25 20:30 Neut # (Auto) 2.32 10^3/uL (1.8-7.7) 03/01/25 20: Lymph # (Auto) 0.7 10^3/uL (0.8-4.8) L 03/01/25 20:30 Cole # (Auto) 0.2 10^3/uL (0.2-0.9) 03/01/25 20: Eos # (Auto) 0.0 10^3/uL (0.0-0.8) 03/01/25 20:30 Baso # (Auto) 0.0 10^3/uL (0.0-0.1) 03/01/25: Nucleated RBC % (auto) 0 % 03/01/25: Nucleated RBCs # 0.0 /100WBC 03/01/25 20:30 Sodium 133 mmol/L (136-145) L 03/01/25 20:30 Potassium 3.5 mmol/L (3.5-5.1) 03/01/25 20: Chloride 103 mmol/L (98-107) 03/01/25 20:30 Carbon Dioxide 21 mmol/L (22-29) L 03/01/25 20:30 Anion Gap 12.5 (5-19) 03/01/25 20:30 BUN 18 mg/dL (6-20) 03/01/25 20: Creatinine 0.9 mg/dL (0.5-0.9) 03/01/25 20:30 GFR Calculation 66.8 mL/min (90-130) L 03/01/25 20: Glucose 120 mg/dL (65-115) H 03/01/25 20:30 Calculated Osmolality 279 mOsm/kg (285-295) L 03/01/25 20:30 Lactic Acid 1.6 mmol/L (0.5-2.2) 03/01/25 20: Calcium 8.7 mg/dL (8.5-10.5) 03/01/25 20:30 Total Bilirubin 0.7 mg/dL (0.15-1.2) 03/01/25 20:30 AST 36 U/L (0-32) H 03/01/25 20:30 ALT 26 U/L (0-33) 03/01/25 20:30 Alkaline Phosphatase 133 U/L (35-105) H 03/01/25 20:30 C-Reactive Protein 136.6 mg/L (0.0-4.9) H 03/01/25 20: Total Protein 7.2 g/dL (6.6-8.7) 03/01/25 20: Albumin 3.2 g/dL (3.5-5.2) L 03/01/25 20: Globulin 4.0 g/dL (1.3-4.6) 03/01/25 20:30 HCG, Qual Negative (Negative) 03/01/25 20:30 Urine Color Red (Yellow) A 03/01/25 20:48 Urine Appearance Cloudy (CLEAR) A 03/01/25 20:48 Urine pH Not Reportable 03/01/25 20:48 Ur Specific [place] Not Reportable 03/01/25 20:48 Urine Protein Not Reportable 03/01/25 20:48 Urine Glucose (UA) Not Reportable 03/01/25 20:48 Urine Ketones Not Reportable 03/01/25 20:48 Urine Blood Not Reportable 03/01/25 20:48 Urine Nitrate Not Reportable 03/01/25 20:48 Urine Bilirubin Not Reportable 03/01/25 20:48 Urine Urobilinogen Not Reportable 03/01/25 20:48 Ur Leukocyte Esterase Not Reportable 03/01/25 20:48 Urine RBC 5-10 /hpf (0-2) H 03/01/25 20:48 Urine WBC >100 /hpf (0-5) H 03/01/25 20:48 Ur Squamous Epith Cells 0-4 /hpf (0-5) H 03/01/25 20:48 Amorphous Sediment Not Reportable 03/01/25 20:48 Urine Bacteria Trace /hpf (NONE) 03/01/25 20:48 Urine Mucus 2+ /hpf 03/01/25 20:48 All radiology interpretation(s) finalized by discharge Discharge Plan Discharge Patient Disposition: Admitted As Inpatient Clinical Impression: Sepsis secondary to UTI, Intra-abdominal abscess Condition: Stable Coding Level of Care Code 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
[2025-03-02] VITALS (10 sets, daily range): BP systolic 100–143; BP diastolic 64–83; PULSE 72–95; RESP 16–29; TEMP 36.7–37.3; O2SAT 96–100; BMI 39.3; BMI 39.2
--- NOTE | 2025-03-02 00:09 | P.HP_ITS ---
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 States prior urine culture (02/22) grew Escherichia coli; has been taking ciprofloxacin. Patient reported having the symptoms of UTI on and off however did not report any symptoms of URTI brittni diarrhea or blood in the stools she has colostomy that is working adequately. No new recent lower leg swelling, concerning shortness of breath orthopnea PND reported by the patient. Took acetaminophen and ibuprofen for symptoms but still was feeling weak and febrile. Her last chemo was recently around a week ago. Patient underwent CT scan and showed intra-abdominal abscess which is a likely source of her infection. She was following with the surgeon at [facility]. Therefore considering complex anatomical situation the ER physician discussed with primary surgeon doctor Lisa at [facility] for further intervention since he might need drainage by the IR. After review of her images, it was suggested to continue on medical management since the abdominal abscess small to be drained. A thorough discussion has been documented by the ER physician, for reference please review the ER physician note. Patient reports known fistula involvement between uterus, bladder, and small intestine; ongoing difficulties arranging surgical care due to insurance. Review of Systems 2 General: Reports: 10 or more systems reviewed and unremarkable except in HPI and below Medications/Allergies Home Medications ?Medication ?Instructions ?Recorded ?Confirmed ?Last Taken ?Type acetaminophen 500 mg tablet 1,000 mg PO Q6H PRN Pain 0 06/04/24 02/22/25 1 Week Ago History (Tylenol Extra Strength) ~12/30/24 metformin 500 mg tablet,extended 500 mg PO BID #180 ta bs 06/24/24 02/22/25 01/05/25 Rx release 24 hr lorazepam 1 mg tablet 0.5 - 1 mg (0.5 - 1 x 1 mg) PO Q6H 08/02/24 02/22/25 01/05/25 Rx PRN severe nausea #30 tabs ondansetron HCl 4 mg tablet 4 mg PO Q6H PRN nausea and 08/02/24 02/22/25 01/05/25 Rx vomiting #30 tabs prochlorperazine maleate 10 mg 10 mg PO Q4H PRN mild n ausea #30 08/02/24 02/22/25 Unknown Rx tablet (Compazine) tabs atorvastatin 40 mg tablet 40 mg PO QPM 09/02/2401/05/25 History losartan 50 mg-hydrochlorothiazide 0.5 tab PO DAILY 02/22/25 01/05/25 History 12.5 mg tablet metoprolol tartrate 50 mg tablet 25 mg PO DAILY 02/22/25 01/06/25 06:50 History tramadol 50 mg tablet 50 mg PO TID PRN pain #30 ta bs 09/10/24 02/22/25 2 Months Ago Rx ~11/06/24 lidocaine HCl 2 % mucosal solution 5 ml mucous membran e Q6H PRN pain 09/21/24 02/22/25 Unknown Rx (Lidocaine Viscous) #100 mL Ostomy Bags #10 ea 10/27/24 02/22/25 Unk nown Rx fexofenadine-pseudoephedrine ER 1 tab PO QAM PRN Aller gy Symptoms 11/09/24 02/22/25 1 Month Ago History 180 mg-240 mg tablet,ext.release ~12/24 24 hr (Arianne-D 24 Hour) ferrous gluconate 324 mg (38 mg 324 mg PO BID 11/15/24 02/22/25 01/05/25 History iron) tablet metronidazole 500 mg tablet 500 mg PO TID 2 weeks #42 tabs 12/20/24 02/22/25 01/05/25 Rx citalopram 20 mg tablet 30 mg PO DAILY 01/03/2502/0101/06/25 06:50 History cephalexin 500 mg capsule 500 mg PO BID 7 days #14 cap s 02/08/25 02/22/25 Unknown Rx ciprofloxacin HCl 500 mg tablet 500 mg PO BID 7 days # 14 tabs 02/28/25 Unknown Rx Allergies Allergy/AdvReac Type Severity Reaction Status Date / Time No Known Allergies Allergy Verified 03/01/25 19:37 PFSH Acute 2 PFSH: Medical History (Updated 03/02/25 @ 00:14 by Africa Gifford MD) Recurrent UTI Port-A-Cath in place Mass of colon Colostomy in place Dyslipidemia Benign essential HTN Mild depression DM II (diabetes mellitus, type II), controlled Iron deficiency anemia Morbid (severe) obesity due to excess calories Menorrhagia, premenopausal Surgical History Hx of colectomy [facility] 06/05/2024- had colostomy placed History of cholecystectomy H/O section History of tonsillectomy Family History Mother Cancer CERVICAL CANCER CAD (coronary artery disease) Social History Smoking and tobacco/nicotine status: never used tobacco/nicotine Alcohol intake: never Substance/Drug Use: never Vitals/I&O/Wt Last Vital Signs Temp 98.5 F 03/01/25 19:31 Pulse 73 03/02/25 00:00 Resp 18 03/02/25 00:00 BP 143/74 03/02/25 00:00 Pulse Ox 98 03/02/25 00:00 O2 Del Method Room Air 03/01/25 23:00 03/01/25 03/01/25 03/02/25 14:59 22:59 06:59 Intake Total 1050 / 1050 Balance 1050 / 1050 Weight last 48 hrs Weight 87.997 kg Physical Exam 2 Narrative: General: Alert and oriented, lying comfortably without any distress HEENT: Normocephalic, atraumatic, grossly unremarkable exam Cardio: normal rate rhythm, appreciated ejection systolic murmur without radiation at the precordium grade 1-2, no rubs, or gallops and JVD normal Respiratory: normal vascular breathing on auscultation without any wheezes, stridor, rhonchi GI: Abdomen soft, nontender, nondistended, normoactive bowel sounds present all 4 quadrants, no flank tenderness elicited, colostomy bag in place and working Neuro: intact cranial nerves motor and sensory and cerebellar/coordination function without any focal neurological deficit Behavior: Appropriate and cooperative Extremities: Adequate palpable pulses, mild trace edema. Data 03/02/25 03:30 03/02/25 03:30 Micro: Microbiology 03/01/25 20:10 Blood Culture - Preliminary Blood SPECIMEN COLLECTED 03/01/25 20:30 Blood Culture - Preliminary Blood SPECIMEN COLLECTED A&P Assessment and plan 1. Severe sepsis: Severe sepsis with fluid responsive. Likely intra-abdominal source Continue Vanco and Zosyn Follow-up blood cultures and urine cultures MRSA requested Adequate hydration with Ringer lactate 100 mL/h to continue Follow lactate Monitor hemodynamics and maintain MAP above 65 2. Intra-abdominal abscess: ER physician had a thorough discussion with the patient primary doctor Lisa at [facility]. The patient had her primary surgery performed, about the CT scan findings of intra-abdominal abscess which as per the documentation informed that these are too small for the interventional radiologist to place a drain or to further intervene. Therefore suggested and recommended to continue antibiotics at this time Vanco and Zosyn to continue as per pharmacist dosing total Consider surgery consult if the patient is not improving 3. Mass of colon: Patient already following with medical oncology and on active treatment. 4. Iron deficiency anemia: Patient on iron replacement at home to resume after medication reconciliation 5. Thrombocytopenia: Likely secondary to her underlying malignancy and its treatment No obvious source of bleeding Patient had thrombocytopenia which likely is also affected due to current severe sepsis. Continue to monitor CBC and in case of any obvious source of bleeding to transfuse platelets. Avoid any heparin/enoxaparin or medications affecting platelets 6. Dyslipidemia: Patient on atorvastatin 40 mg daily, need medication reconciliation before resuming it 7. Mild depression: As per chart review patient on citalopram 30 mg daily and to continue after medication reconciliation 8. DM II (diabetes mellitus, type II), controlled: Sliding scale insulin with low dose protocol Monitor blood glucose 9. Benign essential HTN: Hold all antihypertensives and beta-blockers that can lower blood pressure PDMP PDMP Reviewed: Not Reviewed Attestations 2 Medical Necessity Statement*: Jayna Ricketts's hospital stay will require greater than 2 midnights for severe sepsis secondary to intra-abdominal abscess. Time Spent in Patient Care: 16 - 35 minutes (>than 50% of time sp ent in counselling and/or direct pt care on unit) . Other Attestations: Patient condition has been discussed at length with the patient/family, I have independently reviewed the chart labs imaging/diagnostics/EKG. the goals of care and code status with the patient/family/NOK/legal teleservices representative, and documented accordingly. The patient/family has been informed about the current condition and further plan of care. Agreed with the plan of care and understood without any language barrier. Every effort was made to ensure accuracy of couples therapist. Any obvious errors or omissions should be clarified with the author of the document. Coding Level of Care Code 02318 Diagnoses Severe sepsis A41.9; R65.20 Intra-abdominal abscess K65.1 Mass of colon K63.89 Iron deficiency anemia D50.9 Thrombocytopenia D69.6 Dyslipidemia E78.5 Mild depression F32.A DM II (diabetes mellitus, type II), controlled E11.9 Benign essential HTN I10
[2025-03-02] MEDS: piperacillin-tazobactam 4.5 GM in sodium chloride 0.9% (plus) 50 ML IV ×3 (02:49→17:29)
[2025-03-02 04:12] LABS: Hematocrit 26.3 % (36-47); Hemoglobin 8.90 g/dL (11.27-16.99); Mean Corpuscular HGB Conc 33.8 g/dL (30-55); Mean Corpuscular Hemoglobin 32.6 pg (27-33); Mean Corpuscular Volume 96.3 fl (85-98); Nucleated Red Blood Cells % 0 %; Platelet Count 42 10^3/cmm (157-399); Red Blood Count 2.73 10^6/uL (3.85-5.65); White Blood Count 3.19 10^3/uL (3.29-11.43)
[2025-03-02 04:41] LABS: Lactic Sepsis W/Reflex 1.0 mmol/L (0.5-2.2)
[2025-03-02 04:44] LABS: Alanine Aminotransferase 25 U/L (0-33); Albumin Level 2.9 g/dL (3.5-5.2); Alkaline Phosphatase 124 U/L (35-105); Anion Gap 15.5 (5-19); Aspartate Amino Transferase 35 U/L (0-32); Blood Urea Nitrogen 16 mg/dL (6-20); Calcium 8.1 mg/dL (8.5-10.5); Carbon Dioxide 19 mmol/L (22-29); Chloride 105 mmol/L (98-107); Creatinine Clr Calc Pharmacy 86.6489; Globulin 3.7 g/dL (1.3-4.6); Glucose 122 mg/dL (65-115); Osmolality Calculated 284 mOsm/kg (285-295); Potassium 3.5 mmol/L (3.5-5.1); Sodium 136 mmol/L (136-145); Total Protein 6.6 g/dL (6.6-8.7)
[2025-03-02 05:06] LABS: Slide Review Slide Review Perform
[2025-03-02] MEDS: pantoprazole 40 mg SDV IVP (05:18)
--- NOTE | 2025-03-02 07:08 | PHA.VACGOAL ---
Vancomycin Goal - Goal Vancomycin Goal:: 15-20 mg/L Vancomycin Indication:: Other - Therapy Current therapy:: Pip/Tazo Day of therpy:: Day []of [] . Actual body weight (kg): 200 lb 9.93 oz - Data Labs: WBC 3.19 10^3/uL (3.29-11.43) L 03/02/25 03:30 RBC 2.73 10^6/uL (3.85-5.65) L 03/02/25 03:30 Hgb 8.90 g/dL (11.27-16.99) L 03/02/25 03:30 Hct 26.3 % (36-47) L 03/02/25 03:30 MCV 96.3 fl (85-98) 03/02/25 03:30 MCH 32.6 pg (27-33) 03/02/25 03:30 MCHC 33.8 g/dL (30-55) 03/02/25 03:30 RDW 14.5 % (12.1-15.1) 03/02/25 03:30 Sodium 136 mmol/L (136-145) 03/02/25 03:30 Potassium 3.5 mmol/L (3.5-5.1) 03/02/25 03:30 Chloride 105 mmol/L (98-107) 03/02/25 03:30 Carbon Dioxide 19 mmol/L (22-29) L 03/02/25 03:30 Anion Gap 15.5 (5-19) 03/02/25 03:30 BUN 16 mg/dL (6-20) 03/02/25 03:30 Creatinine 0.8 mg/dL (0.5-0.9) 03/02/25 03:30 GFR Calculation 76.6 mL/min (90-130) L 03/02/25 03:30 Last dialysis session:: N/A Treatment plan:: new consult Regimen:: LOADING DOSE OF 1500 MG X 1 MAINTENANCE DOSE OF 1250 MG Q12H Follow up:: WILL CONTINUE TO MONITOR AND FOLLOW UP DAILY
[2025-03-02] MEDS: sodium chlor 0.9% + KCl 20 mEq 20 MEQ/1,000 ML BAG 75 MEQ IV (08:14)
[2025-03-02 08:44] LABS: Magnesium 1.6 mg/dL (1.7-2.3)
[2025-03-02 09:22] LABS: MRSA PCR OZH (swab) NOT DETECTED (Not Detecte)
--- NOTE | 2025-03-02 09:22 | PC.CHAP ---
Pastoral Care Encounter/Spiritual Assessment Type of Contact [] Declined timber sprinkler visit [] Patient/Family/Request visit [] Outpatient visit [] Follow-up visit [] Physician referral [] Code/Alert [x] Routine visit [] Staff referral [] Actively dying [] Patient sleeping [] Family support [] [] Out of room [] Palliative care [] [] Receiving care in room [] Pre-surgical visit [] Trauma [] Long length of stay [] ICU visit [] Other: Relational/Emotional Strength [x] Patient feels connected with others/family/visitors/staff [] Distress [] Loneliness/isolation [] Abandonment Spirituality of Patient [x] Person of Ermelinda [] Attends Voodoo of their [place] [x] Believes in Prayer [] Reads Bible or Sikhism materials [] There are Spiritual issues to be addressed Communications Department Head Interventions [x] Prayer [x] Active listening [x] Non-anxious presence [x] Spiritual/emotional support [] Crisis/trauma care [] Spiritual counseling [] Bereavement support [] Provided bereavement packet [] Provided Bible/devotional materials [] Provided toy/stuffed animal, coloring book to patient or family member [] Provided Communion [] Anointing/[place] [] Salvation [x] Completed spiritual assessment [] Other: Impact on Illness or Injury [] Angry [] Fearful [] Anxious [] Often cries [] Exhaustion [] Unable to work [] Unable to attend presybeterian [] Unable to walk/stand [] Unable to read [] Unable to drive [] Unable to eat/drink [] Unable to sleep [] Unable to be with family [] Patient intubated [] Other: Summary Time spent with patient 5 min
--- NOTE | 2025-03-02 09:56 | PC.NURSE ---
Patient refuses SCDs. Patient is ambulatory without difficulty.
[2025-03-03 00:37] VITALS: BP 141/77; PULSE 69; RESP 29; O2SAT 94
[2025-03-03 03:03] LABS: Hematocrit 24.3 % (36-47); Hemoglobin 8.10 g/dL (11.27-16.99); Mean Corpuscular HGB Conc 33.3 g/dL (30-55); Mean Corpuscular Hemoglobin 32.3 pg (27-33); Mean Corpuscular Volume 96.8 fl (85-98); Nucleated Red Blood Cells % 0 %; Platelet Count 36 10^3/cmm (157-399); Red Blood Count 2.51 10^6/uL (3.85-5.65); White Blood Count 2.82 10^3/uL (3.29-11.43)
[2025-03-03] MEDS: piperacillin-tazobactam 4.5 GM in sodium chloride 0.9% (plus) 50 ML IV (03:13)
[2025-03-03] MEDS: sodium chlor 0.9% + KCl 20 mEq 20 MEQ/1,000 ML BAG 75 MEQ IV ×2 (03:14→17:21)
[2025-03-03 03:26] LABS: Alanine Aminotransferase 26 U/L (0-33); Albumin Level 3.0 g/dL (3.5-5.2); Alkaline Phosphatase 135 U/L (35-105); Anion Gap 13.4 (5-19); Aspartate Amino Transferase 38 U/L (0-32); Blood Urea Nitrogen 10 mg/dL (6-20); Calcium 8.1 mg/dL (8.5-10.5); Carbon Dioxide 21 mmol/L (22-29); Chloride 108 mmol/L (98-107); Creatinine Clr Calc Pharmacy 98.8361; Globulin 3.4 g/dL (1.3-4.6); Glucose 141 mg/dL (65-115); Osmolality Calculated 289 mOsm/kg (285-295); Potassium 3.4 mmol/L (3.5-5.1); Sodium 139 mmol/L (136-145); Total Protein 6.4 g/dL (6.6-8.7)
[2025-03-03 03:47] LABS: Slide Review Slide Review Perform
[2025-03-03 04:00] VITALS: BP 139/77; PULSE 77; RESP 22; TEMP 36.6; O2SAT 98
[2025-03-03] MEDS: pantoprazole 40 mg SDV IVP (04:50)
[2025-03-03 05:00] VITALS: BMI 39.2
[2025-03-03 06:00] VITALS: BMI 39.2
[2025-03-03 08:00] VITALS: BP 138/78; PULSE 76; RESP 17; TEMP 36.4; O2SAT 97
--- NOTE | 2025-03-03 08:32 | PM.PN ---
Subjective Subjective: 49-year-old female with pelvic abscess between the uterus and the bladder 3 cm in size. She also has loss of fat plane between the uterus and bladder and loops of small bowel with the bladder suspicious for fistula patient admits to passing air with voiding urine in the past and some bloody discharge from the vagina in the past. She came in with sepsis and fever responding well to broad-spectrum antibiotics including Zosyn and vancomycin. Patient states her main symptoms were high fever and flank pain which have resolved. She feels fine now. Her report of her history is that she developed a fistula which was thought to be related to diverticulitis. She saw physician at [facility] who scheduled her for surgery in June 2024 but in May she had bowel leak and emergency surgery. The fistula was repaired and tumor was removed with 5 lymph nodes 3 of which were positive for adenocarcinoma. She underwent chemo and radiation therapy and later developed another fistula in October and was found to have need for additional surgery DM but not emergent by her [employer] insurance and so now she is looking at surgery with the different surgeon in [facility] whom she states she has researched and found to have good reviews. Patient has a colostomy since her first surgery. Patient also has a soft tissue abscess connecting to the surface that was 11 cm now 2 cm closing from inside out that she sees Dr. Ruiz. Patient denies any other external fistulas but knows that she probably has a fistula to her bladder with recurring urinary tract infections Vitals/I&O/Wt Last Vital Signs Temp 97.9 F 03/03/25 04:00 Pulse 77 03/03/25 04:00 Resp 22 H 03/03/25 04:00 BP 139/77 03/03/25 04:00 Pulse Ox 98 03/03/25 04:00 O2 Del Method Room Air 03/03/25 04:00 03/02/25 03/03/25 03/03/25 22:59 06:59 14:59 Intake Total 1300 / 3045 250 / 3295 50 / 50 Balance 1300 / 2845 250 / 3095 50 / 50 Weight last 48 hrs Weight 91 kg Weight 91 kg Weight 91 kg Weight 91.308 kg Weight 87.997 kg Physical Exam Narrative: General well-developed well-nourished overweight weight female in no acute cardiopulmonary stress CV regular rate and rhythm with a 4/6 systolic ejection murmur best heard at the right upper sternal border Lungs clear to auscultation bilaterally Abdomen positive bowel tones soft nontender no suprapubic tenderness. Patient does have a small dressing in the upper suprapubic region she states is a 2 cm soft tissue incisional infection that is not connected to bowel. She states this was 11 cm initially but has healed and she sees Dr. Ruiz Calves no tenderness cords pedal edema Back no flank pain. Data 03/03/25 02:37 03/03/25 02:37 Micro: Microbiology 03/01/25 20:10 Blood Culture - Preliminary Blood NEGATIVE TO DATE 03/01/25 20:30 Blood Culture - Preliminary Blood NEGATIVE TO DATE A&P Assessment and plan 1. Severe sepsis: Sepsis has resolved. Is not culture proven which antibiotic is effective as she is on vancomycin and Zosyn currently but her culture from 02/22/2025 showed E. coli that was Cipro resistant Zosyn and Augmentin sensitive 2. Intra-abdominal abscess: ER physician had a thorough discussion with the patient primary doctor Lisa at [facility]. The patient had her primary surgery performed, about the CT scan findings of intra-abdominal abscess which as per the documentation informed that these are too small for the interventional radiologist to place a drain or to further intervene. Therefore suggested and recommended to continue antibiotics at this time Vanco and Zosyn to continue as per pharmacist dosing total Consider surgery consult if the patient is not improving Patient is improving but she has a 3 cm abscess and I think this is best served with additional days of IV antibiotics. Once cultures are back on the new urine specimen and possible blood cultures recommend outpatient IV antibiotics and follow-up imaging. Oral antibiotics would be a possibility but less likely to resolve deep tissue plane infections in preparation for surgery Start ertapenem discontinue vancomycin and Zosyn. Monitor for symptoms and await cultures. Potential discharge on outpatient ertapenem via her port for 10 days or more and recommend short interval follow-up with new surgeon so that surgery can be scheduled before infection recurs again 3. Mass of colon: Patient already following with medical oncology and on active treatment. CT scan from 03-01 does not mention current mass. she has been receiving mFOLFOX X6 4. Iron deficiency anemia secondary to inadequate dietary iron intake: Patient on iron replacement at home to resume after medication reconciliation 5. Thrombocytopenia: Likely secondary to her underlying malignancy and its treatment No obvious source of bleeding Patient had thrombocytopenia which likely is also affected due to current severe sepsis. Continue to monitor CBC and in case of any obvious source of bleeding to transfuse platelets. Avoid any heparin/enoxaparin or medications affecting platelets Platelet count again low at 36. Zosyn is potential culprit for thrombocytopenia as his acute infection and recent chemotherapy. Ideally patient should be on low-dose anticoagulation for DVT prophylaxis but I am holding off due to the platelet count so low Zosyn is more frequently linked to thrombocytopenia then Rocephin and ertapenem. Given the bowel fistula I am going to switch her over to ertapenem 1 g daily recheck platelet counts in the morning potential discharge on ertapenem. 6. Dyslipidemia: Resume atorvastatin 7. Mild depression: Resume citalopram 8. Controlled type 2 diabetes mellitus without complication, without long-term current use of insulin: A1c down to 5 with recent illness I would recommend discontinuing metformin 9. Benign essential HTN: Resume losartan and remain off HCTZ. PDMP PDMP Reviewed: Not Reviewed Attestations Medical Necessity Statement*: Patient remained in the hospital additional 1-2 midnights for IV antibiotics, sensitivities and planning for outpatient Coding Level of Care Code Acute Code for Chg Fwd Diagnoses Severe sepsis A41.9; R65.20 Intra-abdominal abscess K65.1 Mass of colon K63.89 Iron deficiency anemia secondary to inadequate dietary iron intake D50.8 Iron deficiency anemia type: inadequate dietary iron intake Thrombocytopenia D69.6 Dyslipidemia E78.5 Mild depression F32.A Controlled type 2 diabetes mellitus without complication, without long-term current use of insulin E11.9 Benign essential HTN I10 Time Spent (min) 40
[2025-03-03] MEDS: ertapenem 1,000 mg SDV 1000 MG IVP (09:56)
[2025-03-03] MEDS: POTASSIUM PHOSPHATE IV (10:01)
[2025-03-03] MEDS: SODIUM CHLORIDE 0.9% IV (10:01)
[2025-03-03] MEDS: magnesium sulfate premix 2 GM/50 ML PIGGYBACK IV (10:01)
[2025-03-03 12:00] VITALS: BP 139/81; PULSE 72; RESP 22; TEMP 36.4; O2SAT 97
[2025-03-03 18:21] VITALS: BP 140/78; PULSE 68; RESP 25; TEMP 36.5; O2SAT 97
[2025-03-03 19:40] VITALS: BP 151/64; PULSE 73; RESP 23; TEMP 37.1; O2SAT 93
[2025-03-03] MEDS: meropenem 1,000 mg SDV 1000 MG IVP (22:46)
[2025-03-03 23:12] LABS: Estmated Average Glucose 134; Hemoglobin A1C 6.3 % (4.0-6.0)
[2025-03-04 00:47] LABS: MRSA PCR OZH (swab) NOT DETECTED (Not Detecte)
[2025-03-04 00:50] VITALS: BP 169/88; PULSE 67; RESP 22; O2SAT 97
[2025-03-04 03:14] LABS: Iron 61 ug/dL (37-145); Thyroid Stimulating Hormone 2.76 uIU/mL (0.27-4.20); Total Iron Binding Capacity 216 mcg/dl; Unsaturated Iron Binding 155 ug/dL (112-347); Vitamin B12 414 pg/mL (232-1245)
[2025-03-04 03:39] LABS: Magnesium 2.1 mg/dL (1.7-2.3)
[2025-03-04 03:46] LABS: Procalcitonin 0.83 ng/mL (0-0.5)
[2025-03-04 03:59] LABS: Alanine Aminotransferase 28 U/L (0-33); Albumin Level 3.0 g/dL (3.5-5.2); Alkaline Phosphatase 148 U/L (35-105); Anion Gap 15.0 (5-19); Aspartate Amino Transferase 39 U/L (0-32); Blood Urea Nitrogen 9 mg/dL (6-20); Calcium 8.3 mg/dL (8.5-10.5); Carbon Dioxide 20 mmol/L (22-29); Chloride 109 mmol/L (98-107); Creatinine Clr Calc Pharmacy 98.8361; Globulin 3.5 g/dL (1.3-4.6); Glucose 144 mg/dL (65-115); Osmolality Calculated 291 mOsm/kg (285-295); Potassium 4.0 mmol/L (3.5-5.1); Sodium 140 mmol/L (136-145); Total Protein 6.5 g/dL (6.6-8.7)
[2025-03-04 04:00] VITALS: BP 144/70; PULSE 64; RESP 11; TEMP 36.7; O2SAT 97
[2025-03-04 05:30] VITALS: BP 159/80
[2025-03-04] MEDS: meropenem 1,000 mg SDV 1000 MG IVP (05:30)
[2025-03-04] MEDS: pantoprazole 40 mg SDV IVP (05:30)
[2025-03-04 07:40] VITALS: BP 152/70; PULSE 68; RESP 15; TEMP 36.7; O2SAT 98
[2025-03-04 09:05] LABS: Hematocrit 24.5 % (36-47); Hemoglobin 8.40 g/dL (11.27-16.99); Mean Corpuscular HGB Conc 34.3 g/dL (30-55); Mean Corpuscular Hemoglobin 33.6 pg (27-33); Mean Corpuscular Volume 98.0 fl (85-98); Nucleated Red Blood Cells % 0 %; Platelet Count 41 10^3/cmm (157-399); Red Blood Count 2.50 10^6/uL (3.85-5.65); White Blood Count 2.68 10^3/uL (3.29-11.43)
--- NOTE | 2025-03-04 11:41 | PM.CONSULT ---
Providers/Reason For Consult Consulting Physician/Specialty*: Marichuy Sands MD/ Infectious disease Reason for Consult*: Abdominal fistula, UTI Attending Physician: Carlos Vincent MD Primary Care Provider: Charlie Demarco History of Present Illness History of Present Illness Jayna Ricketts is a 49 year old female with a past medical history of colorectal cancer, status post segmental resection with colostomy in June 2024 related to a colovesical fistula. Most recently on chemotherapy with FOLFOX with last dose 2 weeks ago. Patient has been diagnosed with a recurrent enterovesical fistula in October 2024. Of note she has never had radiation therapy. She has had 3 episodes of UTI since October 2024 for which she has taken oral antibiotics. Most recently she started ciprofloxacin 4 to 5 days ago for UTI. She describes her symptoms to be burning micturition, increased frequency and pain. She also has chronic pneumaturia and fecal urea. Most recent urine culture from March 01, 2025 had shown E. coli which was resistant to ciprofloxacin. She presented to the emergency room on March 02 2025 with fever and chills nausea and lower abdominal pain. She had bilateral flank pain radiating towards the kidneys and mild hematuria. She underwent a CT of the abdomen and pelvis which showed an abscess measuring 2.8 x 3.1 x 3.2 cm located between the uterus and the bladder. Multiple additional small abscesses were present in the pelvis in close proximity to the uterus and bladder. When compared to the CT from October 2024, there was note made of diffuse heterogeneous enhancement of the uterus with endometrial air. Vesicouterine fistula was not excluded at that time. There was an abscess along the dome of the uterus and bladder with largest right-sided fluid collection measuring 4.3 x 2.6 cm and a left-sided collection measuring 2.7 cm with few foci of air. Multiple peripheral enhancing collections were noted along the dome of the bladder and uterus. Urine culture from October 2024 to January 2025 have grown E. coli. Patient states she was planned to undergo surgery for the enterovesical fistula, however subsequently was unable to undergo the same due to her surgeon being out of network with insurance. She is yet to establish care with a different colorectal surgeon. Labs on this admission are notable for anemia with hemoglobin of 8.4. WBC 2.68 with an ANC of 1.06. Thrombocytopenia 41,000, suspect pancytopenia related to chemotherapy. Review of Systems General: Reports: 10 or more systems reviewed and unremarkable except in HPI and below Const: Denies: fever(s), chills or body aches Eyes: Denies: change in vision, blurry vision or photophobia ENMT: Reports: hoarseness; Denies: throat pain, enlarged tonsils, odynophagia or nasal congestion Card: Denies: chest pain, palpitations, irregular heart rhythm, edema, swelling of feet/ankles, lightheadedness, pre-syncope, dyspnea on exertion or orthopnea Resp: Denies: dyspnea, productive cough, non-productive cough, wheezing, stridor, pain on inspiration, change in phlegm color, hemoptysis or chest congestion GI: Denies: abdominal pain, nausea, vomiting, hematemesis, coffee ground emesis, dysphagia, heartburn, diarrhea, constipation, GI cramping, change in stool character, hematochezia or melena : Denies: flank pain, difficulty voiding, dysuria, urinary frequency, urinary urgency, urinary hesitancy or hematuria Musc: Denies: neck pain, back pain, extremity pain, joint swelling, joint warmth or deformity Neuro: Denies: headache(s), numbness in extremities, weakness in extremities, sensory changes, difficulty walking, frequent falls, dizziness, vertigo, behavioral changes, Slurred speech present or seizure-like activity Psych: Denies: anxiety, depression, suicidal ideation or homicidal ideation Endo: Denies: polyuria, polydipsia, tired all the time, cold intolerance or hot flashes Bernard/Lymph: Denies: easy bruising or easy bleeding Medications/Allergies Home Medications ?Medication ?Instructions ?Recorded ?Confirmed ?Last Taken ?Type acetaminophen 500 mg tablet 1,000 mg PO Q6H PRN Pain 06/04/24 03/02/25 1 Week Ago History (Tylenol Extra Strength) ~12/30/24 metformin 500 mg tablet,extended 500 mg PO BID #180 tabs 06/24/24 03/02/25 03/01/25 Rx release 24 hr lorazepam 1 mg tablet 0.5 - 1 mg (0.5 - 1 x 1 mg) PO Q6H 08/02/24 03/02/25 01/05/25 Rx PRN severe nausea #30 tabs ondansetron HCl 4 mg tablet 4 mg PO Q6H PRN nausea and 08/02/24 03/02/25 01/05/25 Rx vomiting #30 tabs prochlorperazine maleate 10 mg 10 mg PO Q4H PRN mild nausea #30 08/02/24 03/02/25 Unknown Rx tablet (Compazine) tabs atorvastatin 40 mg tablet 40 mg PO QPM 09/02/24 03/02/25 03/01/25 History losartan 50 mg-hydrochlorothiazide 1 tab PO DAILY 09/02/24 03/02/25 03/01/25 History 12.5 mg tablet metoprolol tartrate 50 mg tablet 25 mg PO DAILY 09/02/24 03/02/25 03/01/25 History tramadol 50 mg tablet 50 mg PO TID PRN pain #30 tabs 09/10/24 03/02/25 2 Months Ago Rx ~11/06/24 Ostomy Bags #10 ea 10/27/24 03/02/25 Unknown Rx fexofenadine-pseudoephedrine ER 1 tab PO QAM PRN Allergy Symptoms 11/09/24 03/02/25 1 Month Ago History 180 mg-240 mg tablet,ext.release ~12/06/24 24 hr (Arianne-D 24 Hour) ferrous gluconate 324 mg (38 mg 324 mg PO BID 11/15/24 03/02/25 03/01/25 History iron) tablet citalopram 20 mg tablet 30 mg PO DAILY 01/03/25 03/02/25 03/01/25 History ciprofloxacin HCl 500 mg tablet 500 mg PO BID 7 days #14 tabs 02/28/25 03/02/25 03/01/25 Rx Allergies Allergy/AdvReac Type Severity Reaction Status Date / Time No Known Allergies Allergy Verified 03/01/25 19:37 Current Medications Generic Name Dose Route Start Last Admin Trade Name Freq PRN Reason Stop Dose Admin Atorvastatin Calcium 40 mg 03/03/25 17:00 03/03/25 17:19 Atorvastatin 40 Mg Tablet PO 40 mg QPM EDMUNDO Administration Citalopram Hydrobromide 30 mg 03/03/25 08:15 03/04/25 05:30 Citalopram 20 Mg Tablet PO 30 mg DAILY EDMUNDO Administration Ferrous Gluconate 324 mg 03/03/25 09:00 03/04/25 05:30 Ferrous Gluconate 324 Mg Tablet PO 324 mg BID EDMUNDO Administration Vancomycin HCl 1,250 mg in 250 mls @ 250 mls/hr 03/03/25 22:00 03/04/25 10:52 Vancocin IV 250 mls/hr Q12H EDMUNDO Administration Losartan Potassium 50 mg 03/03/25 08:15 03/04/25 05:30 Losartan 50 Mg Tablet PO 50 mg DAILY EDMUNDO Administration Meropenem 1,000 mg 03/03/25 21:45 03/04/25 05:30 Meropenem 1,000 Mg Sdv IVP 1,000 mg Q8H EDMUNDO Administration Protocol Pantoprazole Sodium 40 mg 03/02/25 05:00 03/04/25 05:30 Pantoprazole 40 Mg Sdv IVP 40 mg DAILY EDMUNDO Administration PFSH Acute PFSH: Medical History Recurrent UTI Port-A-Cath in place Mass of colon Colostomy in place Dyslipidemia Benign essential HTN Mild depression DM II (diabetes mellitus, type II), controlled Iron deficiency anemia Morbid (severe) obesity due to excess calories Menorrhagia, premenopausal Surgical History Hx of colectomy [facility] 06/05/2024- had colostomy placed History of cholecystectomy H/O section History of tonsillectomy Family History Mother Cancer CERVICAL CANCER CAD (coronary artery disease) Social History Smoking and tobacco/nicotine status: never used tobacco/nicotine Alcohol intake: never Substance/Drug Use: never Female Reproductive History: Date of last menstrual period: 01/01/24 Vitals/I&O/Wt Last Vital Signs Temp 98.0 F 03/04/25 07:40 Pulse 68 03/04/25 07:40 Resp 15 03/04/25 07:40 BP 152/70 03/04/25 07:40 Pulse Ox 98 03/04/25 07:40 O2 Del Method Room Air 03/04/25 07:40 03/03/25 03/04/25 03/04/25 22:59 06:59 14:59 Intake Total 1260 / 1720 730 / 2450 1120 / 1120 Balance 1260 / 1720 730 / 2450 1120 / 1120 Weight last 48 hrs Weight 91.2 kg Weight 91.2 kg Weight 91 kg Weight 91 kg Physical Exam Narrative: General: No acute distress, AO x3 HEENT: PERRLA, pupils bilaterally equal and reactive, pallors not present Chest: Normal vesicular breath sounds, no added sounds, equal good air entry bilaterally CVS: S1-S2 regular, no murmurs, no tachycardia, no gallops, no rubs Abdomen: Soft, nontender, colostomy in place Neuro: No focal deficits, no facial deformity, AO x3, power 5/5 in all limbs Data 03/04/25 08:47 03/04/25 02:50 Micro: Microbiology 03/01/25 20:48 Urine Culture - Preliminary Urine,Clean Catch Gram Negative Rods NAME: Jayna Ricketts LOC: [facility] U #: [id number] AGE/SX: 49/F ROOM: [facility]– [place][note 2] RE03/01/[address]: Carlos Vincent MD : 1975 BED: 1 DIS: 03/04/25 FAX #: STATUS: DIS IN TLOC: Spec #: [id number] Angela: 03/01/25 Status: COMP Req #: [id number] Recd: 03/01/25-[address]: Kaya Jeffers MD Src: Urine CC SpDesc: Ordered: Procedure Result Verified Site Urine Culture Final 03/04/25-1259 Organism 1 Escherichia coli [place] Count >100,000 CFU/ml DAY 2 E coli M.I.C. RX --------- ------ * Amikacin <=16 S * Amoxicillin/Clavulanate <=8/4 S * Ampicillin >16 R * Ampicillin/Sulbactam >16/8 R * Aztreonam <=4 S * Cefepime <=8 S * Ceftriaxone <=1 S * Cefuroxime 16 I * Ciprofloxacin >2 R * Gentamicin <=2 S * Imipenem <=1 S * Levofloxacin 4 I * Nitrofurantoin <=32 S * Tetracycline >8 R * Trimethoprim/Sulfamethoxazole >2/38 R * Piperacillin/Tazobactam <=16 S Urine Culture Preliminary (changed) 03/03/25-1110 Organism 1 Gram Negative Rods [place] Count 40,000 - 50,000 CFU/ml DAY 1, RESULTS TO FOLLOW Other data: Radiology Impressions Abdomen/Pelvis CT 03/01/25 20:42 IMPRESSION: 1. There is an abscess located between the uterus and the bladder measuring 2.8 x 3.1 x 3.2 cm. Multiple additional small abscesses are present in the pelvis in close proximity to the uterus and bladder. There is diffuse thickening of the urinary bladder wall. 2. There is loss of the fat plane between the uterus and bladder as well as loops of small bowel with the bladder. There is no gas seen within the uterus or bladder on the current exam. Enteric contrast is located more proximal to the loops of bowel which are closely apposed to the uterus/bladder. Fistula can not be ruled out. Laboratory Results WBC 2.68 10^3/uL (3.29-11.43) L 03/04/25 08:47 RBC 2.50 10^6/uL (3.85-5.65) L 03/04/25 08:47 Hgb 8.40 g/dL (11.27-16.99) L 03/04/25 08:47 Hct 24.5 % (36-47) L 03/04/25 08:47 MCV 98.0 fl (85-98) 03/04/25 08:47 MCH 33.6 pg (27-33) H 03/04/25 08:47 MCHC 34.3 g/dL (30-55) 03/04/25 08:47 RDW 14.2 % (12.1-15.1) 03/04/25 08:47 Plt Count 41 10^3/cmm (157-399) L 03/04/25 08:47 MPV 10.8 fL (7.4-10.4) H 03/04/25 08:47 Neut % (Auto) 39.6 % 03/04/25 08:47 Lymph % (Auto) 44.0 % 03/04/25 08:47 [place] % (Auto) 11.2 % 03/04/25 08:47 Eos % (Auto) 4.1 % 03/04/25 08:47 Baso % (Auto) 0.7 % 03/04/25 08:47 Neut # (Auto) 1.06 10^3/uL (1.8-7.7) L 03/04/25 08:47 Lymph # (Auto) 1.2 10^3/uL (0.8-4.8) 03/04/25 08:47 [place] # (Auto) 0.3 10^3/uL (0.2-0.9) 03/04/25 08:47 Eos # (Auto) 0.1 10^3/uL (0.0-0.8) 03/04/25 08:47 Baso # (Auto) 0.0 10^3/uL (0.0-0.1) 03/04/25 08:47 Nucleated RBC % (auto) 0 % 03/04/25 08:47 Nucleated RBCs # 0.0 /100WBC 03/04/25 08:47 Sodium 140 mmol/L (136-145) 03/04/25 02:50 Potassium 4.0 mmol/L (3.5-5.1) 03/04/25 02:50 Chloride 109 mmol/L (98-107) H 03/04/25 02:50 Carbon Dioxide 20 mmol/L (22-29) L 03/04/25 02:50 Anion Gap 15.0 (5-19) 03/04/25 02:50 BUN 9 mg/dL (6-20) 03/04/25 02:50 Creatinine 0.7 mg/dL (0.5-0.9) 03/04/25 02:50 GFR Calculation 89.3 mL/min (90-130) L 03/04/25 02:50 Glucose 144 mg/dL (65-115) H 03/04/25 02:50 POC Glucose 128 mg/dL (70-110) H 03/04/25 11:02 Estimat Average Glucose 134 03/03/25 02:37 Hemoglobin A1c 6.3 % (4.0-6.0) H 03/03/25 02:37 Calculated Osmolality 291 mOsm/kg (285-295) 03/04/25 02:50 Lactic Acid 1.0 mmol/L (0.5-2.2) 03/02/25 03:30 Calcium 8.3 mg/dL (8.5-10.5) L 03/04/25 02:50 Phosphorus 2.9 mg/dL (2.5-4.5) 03/04/25 02:50 Magnesium 2.1 mg/dL (1.7-2.3) 03/04/25 02:50 Iron 61 ug/dL (37-145) 03/03/25 02:37 TIBC 216 mcg/dl 03/03/25 02:37 % Saturation 28.2 % (20-50) 03/03/25 02:37 Unsat Iron Binding 155 ug/dL (112-347) 03/03/25 02:37 Total Bilirubin 0.4 mg/dL (0.15-1.2) 03/04/25 02:50 AST 39 U/L (0-32) H 03/04/25 02:50 ALT 28 U/L (0-33) 03/04/25 02:50 Alkaline Phosphatase 148 U/L (35-105) H 03/04/25 02:50 C-Reactive Protein 136.6 mg/L (0.0-4.9) H 03/01/25 20:30 Total Protein 6.5 g/dL (6.6-8.7) L 03/04/25 02:50 Albumin 3.0 g/dL (3.5-5.2) L 03/04/25 02:50 Globulin 3.5 g/dL (1.3-4.6) 03/04/25 02:50 Vitamin B12 414 pg/mL (232-1245) 03/03/25 02:37 Folate > 20.0 ng/mL (4.8-37.3) 03/04/25 02:50 Procalcitonin 0.83 ng/mL (0-0.5) H 03/04/25 02:50 TSH 2.76 uIU/mL (0.27-4.20) 03/03/25 02:37 HCG, Qual Negative (Negative) 03/01/25 20:30 Urine Color Red (Yellow) A 03/01/25 20:48 Urine Appearance Cloudy (CLEAR) A 03/01/25 20:48 Urine pH Not Reportable 03/01/25 20:48 Ur Specific [place] Not Reportable 03/01/25 20:48 Urine Protein Not Reportable 03/01/25 20:48 Urine Glucose (UA) Not Reportable 03/01/25 20:48 Urine Ketones Not Reportable 03/01/25 20:48 Urine Blood Not Reportable 03/01/25 20:48 Urine Nitrate Not Reportable 03/01/25 20:48 Urine Bilirubin Not Reportable 03/01/25 20:48 Urine Urobilinogen Not Reportable 03/01/25 20:48 Ur Leukocyte Esterase Not Reportable 03/01/25 20:48 Urine RBC 5-10 /hpf (0-2) H 03/01/25 20:48 Urine WBC >100 /hpf (0-5) H 03/01/25 20:48 Ur Squamous Epith Cells 0-4 /hpf (0-5) H 03/01/25 20:48 Amorphous Sediment Not Reportable 03/01/25 20:48 Urine Bacteria Trace /hpf (NONE) 03/01/25 20:48 Urine Mucus 2+ /hpf 03/01/25 20:48 Nasal MRSA (PCR) Not detected (Not Detecte) 03/03/25 22:49 Vancomycin Trough 8.0 ug/mL (10-15) L 03/03/25 23:19 Date of Service: 11/15/24 Procedure(s): CT abdomen pelvis w con* [id number] CT/CT abdomen pelvis w con* [id number] IMPRESSION: 1. Interval partial colectomy with LEFT lower quadrant colostomy which appears patent. 2. Mild induration involving the transverse colon with thickening and enhancement. Recommend correlation for colitis. 3. Evidence of diffuse cystitis with bladder wall thickening and enhancement and pockets of intraluminal air. 4. Diffuse heterogeneous enhancement of the uterus with endometrial air. A vesicouterine fistula is not excluded. Loss of the normal fat plane between the bladder and uterus. 5. Bowel loops adhesed to the dome of the bladder suspicious for enterovesical fistula 6. Suspected areas of possibly developing abscess along the dome of the uterus and bladder with a few tiny punctate foci of air. Largest right-sided fluid collection appears relatively simple measures 4.3 x 2.6 cm with a LEFT sided collection measuring 2.7 cm with a few punctate foci of air. Smaller peripheral enhancing collections along the dome of the bladder and uterus 7. Cholecystectomy. A&P Assessment and plan 1. Intra-abdominal abscess: 2. Enterovesical fistula: 3. Vesicouterine fistula: 4. Pyelonephritis: Plan: 49-year-old lady with history as described above, currently active issue being an enterovesical fistula, possibly uterovesical fistula, chronic pelvic abscess seen on CT imaging at least since October 2024, chronic bacteriuria related to the above fistulization, with recurrent episodes of UTI since October 2024. Complicated further by the fact that patient is on chemotherapy, currently with mild neutropenia with an ANC of 1.06. Urine culture from March 01, 2025 is with growth of E. coli resistant to ciprofloxacin. Agree with using meropenem for current treatment Can discontinue IV vancomycin Overall clinical impression is that of acute pyelonephritis on current admission, due to underlying persisting fistulization and abscess likely with connection to the bladder. Recommend GI surgical consult and address for source control measures with definitive management of the fistula as patient will likely remain at risk for recurrent UTI sepsis and pyelonephritis with persisting fistulization. PDMP PDMP Reviewed: Not Reviewed Coding Level of Care Code Acute Code for Chg Fwd High MDM includes number and complexity of problems actively addressed during encounter, amount and/or complexity of data reviewed/ordered and described risk of complication, morbidity or mortality of management as documented Diagnoses Intra-abdominal abscess K65.1 Enterovesical fistula N32.1 Vesicouterine fistula N82.1 Pyelonephritis N12
[2025-03-04 11:49] VITALS: BP 152/78; PULSE 59; RESP 16; TEMP 36.5; O2SAT 97
--- NOTE | 2025-03-04 13:21 | PM.TDS ---
Transfer Summary Providers Date of Admission: 03/01/25 23:43 Date of Discharge/Transfer: 03/04/25 Attending Provider at Admission: Africa Gifford MD Attending Provider at Transfer: Carlos Vincent MD Consults: Infectious disease: Dr Sands Surgery: Dr. Sahu Primary Care Provider: Charlie Demarco Transfer Plans: Anticipated date of transfer: 03/04/25. Receiving Facility: [facility]. Receiving Provider: Dr. Bloom. Diagnoses at Discharge Discharge Diagnosis 1. Severe sepsis: 2. Intra-abdominal abscess: 3. Mass of colon: 4. Iron deficiency anemia secondary to inadequate dietary iron intake: 5. Thrombocytopenia: 6. Dyslipidemia: 7. Mild depression: 8. Controlled type 2 diabetes mellitus without complication, without long-term current use of insulin: 9. Benign essential HTN: 10. Enterovesical fistula: 11. Recurrent UTI: 12. Vesicouterine fistula: 13. Colostomy in place: 14. 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 States prior urine culture (02/22) grew Escherichia coli; has been taking ciprofloxacin. Patient reported having the symptoms of UTI on and off however did not report any symptoms of URTI brittni diarrhea or blood in the stools she has colostomy that is working adequately. No new recent lower leg swelling, concerning shortness of breath orthopnea PND reported by the patient. Took acetaminophen and ibuprofen for symptoms but still was feeling weak and febrile. Her last chemo was recently around a week ago. Patient underwent CT scan and showed intra-abdominal abscess which is a likely source of her infection. She was following with the surgeon at [facility]. Therefore considering complex anatomical situation the ER physician discussed with primary surgeon doctor Lisa at [facility] for further intervention since he might need drainage by the IR. After review of her images, it was suggested to continue on medical management since the abdominal abscess small to be drained. A thorough discussion has been documented by the ER physician, for reference please review the ER physician note. Patient reports known fistula involvement between uterus, bladder, and small intestine; ongoing difficulties arranging surgical care due to insurance. Hospital Course Hospital Course Patient was admitted for further evaluation and management of complicated UTI. CT on pelvis on admission was concerning for multiple intra-abdominal abscesses with largest measuring 2.8 x 3.1 x 3 cm between the urinary bladder and uterus with concerns for colonic bladder and uterine fistula. During hospitalization blood cultures remain negative and urine culture was positive for E. coli. Infectious disease and surgery was consulted for further recommendations. Given concern for abscess with concern for colovesical fistula possible transfer to tertiary center was recommended for IR drainage of the abscess versus colorectal surgery. Patient's care were discussed with hospitalist at [facility] who accepted patient under their care. She has been transferred in hemodynamically stable condition for further evaluation and management. Physical Exam Narrative: General well-developed well-nourished overweight weight female in no acute cardiopulmonary stress CV regular rate and rhythm with a 4/6 systolic ejection murmur best heard at the right upper sternal border Lungs clear to auscultation bilaterally Abdomen positive bowel tones soft nontender no suprapubic tenderness. Patient does have a small dressing in the upper suprapubic region she states is a 2 cm soft tissue incisional infection that is not connected to bowel. She states this was 11 cm initially but has healed and she sees Dr. Ruiz Calves no tenderness cords pedal edema Back no flank pain. TS Data Studies Completed and Pending Pending at discharge Category Date Time Status Blood Culture Stat Lab 03/01/25 20:10 Results Complete Blood Count w/Auto AM LABS Lab 03/05/25 04:00 Ordered Comprehensive Metabolic Panel AM LABS Lab 03/05/25 04:00 Ordered Vancomycin Trough Timed Lab 03/04/25 21:00 Ordered Completed Studies During Hospitalization Category Date Time Status CT abdomen pelvis w con* [id number] Stat Cat Scan 03/01/25 20:42 Completed Laboratory Last Values WBC 2.68 10^3/uL (3.29-11.43) L 03/04/25 08:47 RBC 2.50 10^6/uL (3.85-5.65) L 03/04/25 08:47 Hgb 8.40 g/dL (11.27-16.99) L 03/04/25 08:47 Hct 24.5 % (36-47) L 03/04/25 08:47 MCV 98.0 fl (85-98) 03/04/25 08:47 MCH 33.6 pg (27-33) H 03/04/25 08:47 MCHC 34.3 g/dL (30-55) 03/04/25 08:47 RDW 14.2 % (12.1-15.1) 03/04/25 08:47 Plt Count 41 10^3/cmm (157-399) L 03/04/25 08:47 MPV 10.8 fL (7.4-10.4) H 03/04/25 08:47 Neut % (Auto) 39.6 % 03/04/25 08:47 Lymph % (Auto) 44.0 % 03/04/25 08:47 Morrison % (Auto) 11.2 % 03/04/25 08:47 Eos % (Auto) 4.1 % 03/04/25 08:47 Baso % (Auto) 0.7 % 03/04/25 08:47 Neut # (Auto) 1.06 10^3/uL (1.8-7.7) L 03/04/25 08:47 Lymph # (Auto) 1.2 10^3/uL (0.8-4.8) 03/04/25 08:47 Morrison # (Auto) 0.3 10^3/uL (0.2-0.9) 03/04/25 08:47 Eos # (Auto) 0.1 10^3/uL (0.0-0.8) 03/04/25 08:47 Baso # (Auto) 0.0 10^3/uL (0.0-0.1) 03/04/25 08:47 Nucleated RBC % (auto) 0 % 03/04/25 08:47 Nucleated RBCs # 0.0 /100WBC 03/04/25 08:47 Sodium 140 mmol/L (136-145) 03/04/25 02:50 Potassium 4.0 mmol/L (3.5-5.1) 03/04/25 02:50 Chloride 109 mmol/L (98-107) H 03/04/25 02:50 Carbon Dioxide 20 mmol/L (22-29) L 03/04/25 02:50 Anion Gap 15.0 (5-19) 03/04/25 02:50 BUN 9 mg/dL (6-20) 03/04/25 02:50 Creatinine 0.7 mg/dL (0.5-0.9) 03/04/25 02:50 GFR Calculation 89.3 mL/min (90-130) L 03/04/25 02:50 Glucose 144 mg/dL (65-115) H 03/04/25 02:50 POC Glucose 128 mg/dL (70-110) H 03/04/25 11:02 Estimat Average Glucose 134 03/03/25 02:37 Hemoglobin A1c 6.3 % (4.0-6.0) H 03/03/25 02:37 Calculated Osmolality 291 mOsm/kg (285-295) 03/04/25 02:50 Lactic Acid 1.0 mmol/L (0.5-2.2) 03/02/25 03:30 Calcium 8.3 mg/dL (8.5-10.5) L 03/04/25 02:50 Phosphorus 2.9 mg/dL (2.5-4.5) 03/04/25 02:50 Magnesium 2.1 mg/dL (1.7-2.3) 03/04/25 02:50 Iron 61 ug/dL (37-145) 03/03/25 02:37 TIBC 216 mcg/dl 03/03/25 02:37 % Saturation 28.2 % (20-50) 03/03/25 02:37 Unsat Iron Binding 155 ug/dL (112-347) 03/03/25 02:37 Total Bilirubin 0.4 mg/dL (0.15-1.2) 03/04/25 02:50 AST 39 U/L (0-32) H 03/04/25 02:50 ALT 28 U/L (0-33) 03/04/25 02:50 Alkaline Phosphatase 148 U/L (35-105) H 03/04/25 02:50 C-Reactive Protein 136.6 mg/L (0.0-4.9) H 03/01/25 20:30 Total Protein 6.5 g/dL (6.6-8.7) L 03/04/25 02:50 Albumin 3.0 g/dL (3.5-5.2) L 03/04/25 02:50 Globulin 3.5 g/dL (1.3-4.6) 03/04/25 02:50 Vitamin B12 414 pg/mL (232-1245) 03/03/25 02:37 Folate > 20.0 ng/mL (4.8-37.3) 03/04/25 02:50 Procalcitonin 0.83 ng/mL (0-0.5) H 03/04/25 02:50 TSH 2.76 uIU/mL (0.27-4.20) 03/03/25 02:37 HCG, Qual Negative (Negative) 03/01/25 20:30 Urine Color Red (Yellow) A 03/01/25 20:48 Urine Appearance Cloudy (CLEAR) A 03/01/25 20:48 Urine pH Not Reportable 03/01/25 20:48 Ur Specific [place] Not Reportable 03/01/25 20:48 Urine Protein Not Reportable 03/01/25 20:48 Urine Glucose (UA) Not Reportable 03/01/25 20:48 Urine Ketones Not Reportable 03/01/25 20:48 Urine Blood Not Reportable 03/01/25 20:48 Urine Nitrate Not Reportable 03/01/25 20:48 Urine Bilirubin Not Reportable 03/01/25 20:48 Urine Urobilinogen Not Reportable 03/01/25 20:48 Ur Leukocyte Esterase Not Reportable 03/01/25 20:48 Urine RBC 5-10 /hpf (0-2) H 03/01/25 20:48 Urine WBC >100 /hpf (0-5) H 03/01/25 20:48 Ur Squamous Epith Cells 0-4 /hpf (0-5) H 03/01/25 20:48 Amorphous Sediment Not Reportable 03/01/25 20:48 Urine Bacteria Trace /hpf (NONE) 03/01/25 20:48 Urine Mucus 2+ /hpf 03/01/25 20:48 Nasal MRSA (PCR) Not detected (Not Detecte) 03/03/25 22:49 Vancomycin Trough 8.0 ug/mL (10-15) L 03/03/25 23:19 Radiology Impressions Abdomen/Pelvis CT 03/01/25 20:42 IMPRESSION: 1. There is an abscess located between the uterus and the bladder measuring 2.8 x 3.1 x 3.2 cm. Multiple additional small abscesses are present in the pelvis in close proximity to the uterus and bladder. There is diffuse thickening of the urinary bladder wall. 2. There is loss of the fat plane between the uterus and bladder as well as loops of small bowel with the bladder. There is no gas seen within the uterus or bladder on the current exam. Enteric contrast is located more proximal to the loops of bowel which are closely apposed to the uterus/bladder. Fistula can not be ruled out. Microbiology 03/01/25 20:48 Urine,Clean Catch Urine Culture - Final Escherichia coli 03/01/25 20:10 Blood Blood Culture - Preliminary NEGATIVE TO DATE 03/01/25 20:30 Blood Blood Culture - Preliminary NEGATIVE TO DATE Recent Clincial Data Last Vital Signs Temp 97.7 F 03/04/25 11:49 Pulse 59 L 03/04/25 11:49 Resp 16 03/04/25 11:49 BP 152/78 03/04/25 11:49 Pulse Ox 97 03/04/25 11:49 O2 Del Method Room Air 03/04/25 11:49 Vital Signs Temp Pulse Resp BP Pulse Ox O2 Del Method 03/04/25 11:49 97.7 F 59 L 16 152/78 97 Room Air 03/04/25 07:40 98.0 F 68 15 152/70 98 Room Air 03/04/25 05:30 159/80 03/04/25 04:00 98.1 F 64 11 L 144/70 97 Room Air Intake & Output/Weight 03/02/25 03/03/25 03/04/25 03/05/25 06:59 06:59 06:59 06:59 Intake Total 1100 / 1100 3295 / 3295 2450 / 2450 1490 / 1490 Output Total 300 / 300 200 / 200 Balance 800 / 800 3095 / 3095 2450 / 2450 1490 / 1490 Weight 91 kg 91 kg 91.2 kg Vitals Last Vital Signs Temp 97.7 F 03/04/25 11:49 Pulse 59 L 03/04/25 11:49 Resp 16 03/04/25 11:49 BP 152/78 03/04/25 11:49 Pulse Ox 97 03/04/25 11:49 O2 Del Method Room Air 03/04/25 11:49 TS Medications Medications Acetaminophen (Acetaminophen 325 Mg Tablet) 650 mg PO Q6H PRN PRN Reason: MILD PAIN Atorvastatin Calcium (Atorvastatin 40 Mg Tablet) 40 mg PO QPM [facility] Last Admin: 03/03/25 17:19 Dose: 40 mg Citalopram Hydrobromide (Citalopram 20 Mg Tablet) 30 mg PO DAILY [facility] Last Admin: 03/04/25 05:30 Dose: 30 mg Ferrous Gluconate (Ferrous Gluconate 324 Mg Tablet) 324 mg PO BID [facility] Last Admin: 03/04/25 05:30 Dose: 324 mg Vancomycin HCl (Vancocin) 1,250 mg in 250 mls @ 250 mls/hr IV Q12H [facility] Last Infusion: 03/04/25 13:11 Dose: Infused Losartan Potassium (Losartan 50 Mg Tablet) 50 mg PO DAILY [facility] Last Admin: 03/04/25 05:30 Dose: 50 mg Meropenem (Meropenem 1,000 Mg Sdv) 1,000 mg IVP Q8H [facility]; Protocol Last Admin: 03/04/25 05:30 Dose: 1,000 mg Ondansetron HCl (Ondansetron 2 Mg/Ml Sdv 2 Ml) 4 mg IVP Q6H PRN PRN Reason: NAUSEA AND VOMITING Pantoprazole Sodium (Pantoprazole 40 Mg Sdv) 40 mg IVP DAILY [facility] Last Admin: 03/04/25 05:30 Dose: 40 mg Tramadol HCl (Tramadol 50 Mg Tablet) 50 mg PO TID PRN PRN Reason: PAIN Discontinued Medications Ceftriaxone Sodium (Ceftriaxone 2,000 Mg Sdv) 2,000 mg IVP ONCE ONE; Protocol Stop: 03/01/25 20:45 Last Admin: 03/01/25 21:01 Dose: 2,000 mg Ertapenem (Ertapenem 1,000 Mg Sdv) 1,000 mg IVP ONCE ONE; Protocol Stop: 03/03/25 09:31 Last Admin: 03/03/25 09:56 Dose: 1,000 mg Sodium Chloride (Sodium Chloride 0.9%) 1,000 mls @ 999 mls/hr IV .Q1H1M ONE Stop: 03/01/25 21:42 Last Infusion: 03/01/25 23:56 Dose: Infused Piperacillin Sod/Tazobactam (Sod 3.375 gm/ Sodium Chloride) 50 mls @ 100 mls/hr IV ONCE ONE; Protocol Stop: 03/01/25 23:26 Last Infusion: 03/01/25 23:55 Dose: Infused Lactated Ringer's (Lactated Ringers) 1,000 mls @ 500 mls/hr IV .Q2H EDMUNDO Stop: 03/02/25 08:27 Last Infusion: 03/02/25 08:09 Dose: Infused Piperacillin Sod/Tazobactam (Sod / Sodium Chloride) 50 mls @ 0 mls/hr [id number] CONT EDMUNDO; Protocol Vancomycin HCl / Sodium (Chloride) 250 mls @ 0 mls/hr [id number] PROTOCOL EDMUNDO; Protocol Piperacillin Sod/Tazobactam (Sod 4.5 gm/ Sodium Chloride) 50 mls @ 12.5 mls/hr IV Q8H [facility] Vancomycin HCl (Vancocin) 1,500 mg in 300 mls @ 200 mls/hr IV ONCE EDMUNDO Stop: 03/02/25 07:00 Last Infusion: 03/02/25 08:10 Dose: Infused Piperacillin Sod/Tazobactam (Sod 4.5 gm/ Sodium Chloride) 50 mls @ 12.5 mls/hr IV Q8H [facility] Last Infusion: 03/03/25 07:55 Dose: Infused Vancomycin HCl (Vancocin) 1,250 mg in 250 mls @ 250 mls/hr IV Q12H [facility] Last Infusion: 03/03/25 06:35 Dose: Infused Potassium Chloride/Sodium Chloride (Sodium Chlor 0.9% + Kcl 20 Meq) 20 meq in 1,000 mls @ 75 mls/hr IV .[id number] [facility] Last Infusion: 03/04/25 08:00 Dose: Infused Magnesium Sulfate (Magnesium Sulfate Premix) 2 gm in 50 mls @ 50 mls/hr IV ONCE ONE Stop: 03/03/25 09:58 Last Infusion: 03/03/25 11:05 Dose: Infused Potassium Phosphate 30 mmol/ (Sodium Chloride) 260 mls @ 55 mls/hr IV ONCE ONE Stop: 03/03/25 13:42 Last Infusion: 03/03/25 16:25 Dose: Infused Iohexol (Iohexol 350 Mg/Ml 500 Ml Btl (Per Ml)) 0 ml PO ONCE ONE Stop: 03/01/25 20:56 Last Admin: 03/01/25 20:55 Dose: 25 ml Iohexol (Iohexol 350 Mg/Ml 500 Ml Btl (Per Ml)) 0 ml IV ONCE ONE Stop: 03/01/25 21:48 Last Admin: 03/01/25 21:47 Dose: 100 ml Potassium Chloride (Potassium Chloride Er 20 Meq Tablet) 40 meq PO Q4H EDMUNDO Stop: 03/03/25 12:01 Last Admin: 03/03/25 11:56 Dose: 40 meq Allergies No Known Allergies Allergy (Verified 03/01/25 19:37) Home Medications acetaminophen 500 mg tablet (Tylenol Extra Strength) 1,000 mg PO Q6H PRN Pain 06/04/24 [History Confirmed 03/02/25] metformin 500 mg tablet,extended release 24 hr 500 mg PO BID #180 tabs 06/24/24 [Rx Confirmed 03/02/25] lorazepam 1 mg tablet 0.5 - 1 mg (0.5 - 1 x 1 mg) PO Q6H PRN severe nausea #30 tabs 08/02/24 [Rx Confirmed 03/02/25] ondansetron HCl 4 mg tablet 4 mg PO Q6H PRN nausea and vomiting #30 tabs 08/02/24 [Rx Confirmed 03/02/25] prochlorperazine maleate 10 mg tablet (Compazine) 10 mg PO Q4H PRN mild nausea #30 tabs 08/02/24 [Rx Confirmed 03/02/25] atorvastatin 40 mg tablet 40 mg PO QPM 09/02/24 [History Confirmed 03/02/25] losartan 50 mg-hydrochlorothiazide 12.5 mg tablet 1 tab PO DAILY 09/02/24 [History Confirmed 03/02/25] metoprolol tartrate 50 mg tablet 25 mg PO DAILY 09/02/24 [History Confirmed 03/02/25] tramadol 50 mg tablet 50 mg PO TID PRN pain #30 tabs 09/10/24 [Rx Confirmed 03/02/25] Ostomy Bags #10 ea 10/27/24 [Rx Confirmed 03/02/25] fexofenadine-pseudoephedrine ER 180 mg-240 mg tablet,ext.release 24 hr (Arianne-D 24 Hour) 1 tab PO QAM PRN Allergy Symptoms 11/09/24 [History Confirmed 03/02/25] ferrous gluconate 324 mg (38 mg iron) tablet 324 mg PO BID 11/15/24 [History Confirmed 03/02/25] citalopram 20 mg tablet 30 mg PO DAILY 01/03/25 [History Confirmed 03/02/25] ciprofloxacin HCl 500 mg tablet 500 mg PO BID 7 days #14 tabs 02/28/25 [Rx Confirmed 03/02/25] Discharge Plan Discharge Patient Disposition: Home Condition: Stable Prescriptions: No Action metformin 500 mg tablet extended release 24 hr 500 mg PO BID Qty: 180 3RF fexofenadine-pseudoephedrine [Arianne-D 24 Hour] 180-240 mg tablet extended release 24 hr 1 tab PO QAM PRN (Reason: Allergy Symptoms) prochlorperazine maleate [Compazine] 10 mg tablet 10 mg PO Q4H PRN (Reason: mild nausea) Qty: 30 3RF ondansetron HCl 4 mg tablet 4 mg PO Q6H PRN (Reason: nausea and vomiting) Qty: 30 3RF lorazepam 1 mg tablet 0.5 - 1 mg PO Q6H PRN (Reason: severe nausea) Qty: 30 3RF tramadol 50 mg tablet 50 mg PO TID PRN (Reason: pain) Qty: 30 0RF (DME) Ostomy Bags See Rx Instructions .Route .MEDSUPPLY Qty: 10 11RF Rx Instructions: As directed ciprofloxacin HCl 500 mg tablet 500 mg PO BID 7 Days Qty: 14 0RF metoprolol tartrate 50 mg Tablet 25 mg PO DAILY atorvastatin 40 mg tablet 40 mg PO QPM losartan-hydrochlorothiazide 50-12.5 mg tablet 1 tab PO DAILY ferrous gluconate 324 mg (38 mg iron) Tablet 324 mg PO BID citalopram 20 mg tablet 30 mg PO DAILY acetaminophen [Tylenol Extra Strength] 500 mg Tablet 1,000 mg PO Q6H PRN (Reason: Pain) Referrals: [facility] GI Lab [Other] - 03/05/25 9:00 am Referral Note: You will come to outpatient services on Friday and Friday for your infusions. [facility] Infusion Center [Outside] - 03/07/25 9:00 am Referral Note: You will go here Friday -Friday for your IV abxs until completion of the IV abx. Charlie Demarco NP [Primary Care Provider, Family Practice] - 03/14/25 10:40 am Referral Note: This appointment with scheduled with Elvira Ayala as Charlie Demarco is out of office. Thank you! Patient Instructions: Opioid Safety, Patient Portal & [place] Instructions Transfer Attestations Time Spent in Transfer Care: greater than 30 min Specific Discharge Activities: educating patient, educating and/or supporting family/caregiver, discussing with pcp/other providers, discussing with human services case manager/social workers/dc planners, documenting/other paperwork and evaluating patient/reviewing data Status at Transfer: Cognitive status at transfer: cognitively intact; Behavioral status at transfer: cooperative; Functional status at transfer: independent ambulation; Overall status at transfer: patient is not back to baseline Quality Metrics Clinical Quality Measures [ No reported AMI, CVA or VTE this stay] Coding Level of Care Code 10609 Total time (in minutes) for Discharge: 70 Diagnoses Severe sepsis A41.9; R65.20 Intra-abdominal abscess K65.1 Mass of colon K63.89 Iron deficiency anemia secondary to inadequate dietary iron intake D50.8 Iron deficiency anemia type: inadequate dietary iron intake Thrombocytopenia D69.6 Dyslipidemia E78.5 Mild depression F32.0 Controlled type 2 diabetes mellitus without complication, without long-term current use of insulin E11.9 Benign essential HTN I10 Enterovesical fistula N32.1 Recurrent UTI N39.0 Vesicouterine fistula N82.[address] Z93.3 Colonic fistula K63.2
--- NOTE | 2025-03-04 15:25 | PM.CONSULT ---
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 She now comes in passing air with urination and fever and CT showing several abscesses near bladder about 3 cm in size. She has responded to antibiotics. She was supposed to go back to have this fistula repaired. She had post op colonoscopy and CT scan showing no recurrence. With first entero vesical fistula she was actually passing stool into urine. First colon resection complicated by non healing wound lower incision that is now only 3 cm deep and lets in Q tip head. Review of Systems Narrative: Constitutional: denies rigors, singnificant weight gain, increased appetite HEENT: denies chronic cough, blurry vision, excessive tearing, eye pain, flashing lights, odynophagia, painful mastication, change in voice, change in taste, chronic sore throat, hypersalivation Heart: denies racing heart, palpitations, othropnea, PND Lungs: denies hemoptysis, pain with deep inspiration, chronic bronchitis GI: denies hematemesis, hematochezia, dysphagia, tenesmus : denies polyuria, hematuria, painful micturation Musculoskeletal: denies hemarthrosis, Muscle wasting, change in amubation Neuro: denies new onset syncope, dysesthesia, dysequilibrium, ptosis eyelid or face SKin: denies new onset hyperalgia, new rash new cyanosis Endocrine: denies new polyuria, polydipsia, polyphagia, heat intolerance, excessive energy Hem/Onc: denies new petechiae, swollen glands, new excessive epstaxis Psych: denies racing thought Medications/Allergies Home Medications ?Medication ?Instructions ?Recorded ?Confirmed ?Last Taken ?Type acetaminophen 500 mg tablet 1,000 mg PO Q6H PRN Pain 06/04/24 03/02/25 1 Week Ago History (Tylenol Extra Strength) ~12/30/24 metformin 500 mg tablet,extended 500 mg PO BID #180 tabs 06/24/24 03/02/25 03/01/25 Rx release 24 hr lorazepam 1 mg tablet 0.5 - 1 mg (0.5 - 1 x 1 mg) PO Q6H 08/02/24 03/02/25 01/05/25 Rx PRN severe nausea #30 tabs ondansetron HCl 4 mg tablet 4 mg PO Q6H PRN nausea and 08/02/24 03/02/25 01/05/25 Rx vomiting #30 tabs prochlorperazine maleate 10 mg 10 mg PO Q4H PRN mild nausea #30 08/02/24 03/02/25 Unknown Rx tablet (Compazine) tabs atorvastatin 40 mg tablet 40 mg PO QPM 09/02/24 03/02/25 03/01/25 History losartan 50 mg-hydrochlorothiazide 1 tab PO DAILY 09/02/24 03/02/25 03/01/25 History 12.5 mg tablet metoprolol tartrate 50 mg tablet 25 mg PO DAILY 09/02/24 03/02/25 03/01/25 History tramadol 50 mg tablet 50 mg PO TID PRN pain #30 tabs 09/10/24 03/02/25 2 Months Ago Rx ~11/06/24 Ostomy Bags #10 ea 10/27/24 03/02/25 Unknown Rx fexofenadine-pseudoephedrine ER 1 tab PO QAM PRN Allergy Symptoms 11/09/24 03/02/25 1 Month Ago History 180 mg-240 mg tablet,ext.release ~12/06/24 24 hr (Arianne-D 24 Hour) ferrous gluconate 324 mg (38 mg 324 mg PO BID 11/15/24 03/02/25 03/01/25 History iron) tablet citalopram 20 mg tablet 30 mg PO DAILY 01/03/25 03/02/25 03/01/25 History ciprofloxacin HCl 500 mg tablet 500 mg PO BID 7 days #14 tabs 02/28/25 03/02/25 03/01/25 Rx Allergies Allergy/AdvReac Type Severity Reaction Status Date / Time No Known Allergies Allergy Verified 03/01/25 19:37 Current Medications Generic Name Dose Route Start Last Admin Trade Name Freq PRN Reason Stop Dose Admin Atorvastatin Calcium 40 mg 03/03/25 17:00 03/03/25 17:19 Atorvastatin 40 Mg Tablet PO 40 mg QPM EDMUNDO Administration Citalopram Hydrobromide 30 mg 03/03/25 08:15 03/04/25 05:30 Citalopram 20 Mg Tablet PO 30 mg DAILY EDMUNDO Administration Ferrous Gluconate 324 mg 03/03/25 09:00 03/04/25 05:30 Ferrous Gluconate 324 Mg Tablet PO 324 mg BID EDMUNDO Administration Vancomycin HCl 1,250 mg in 250 mls @ 250 mls/hr 03/03/25 22:00 03/04/25 13:11 Vancocin IV Infused Q12H EDMUNDO Infusion Losartan Potassium 50 mg 03/03/25 08:15 03/04/25 05:30 Losartan 50 Mg Tablet PO 50 mg DAILY EDMUNDO Administration Meropenem 1,000 mg 03/03/25 21:45 03/04/25 05:30 Meropenem 1,000 Mg Sdv IVP 1,000 mg Q8H EDMUNDO Administration Protocol Pantoprazole Sodium 40 mg 03/02/25 05:00 03/04/25 05:30 Pantoprazole 40 Mg Sdv IVP 40 mg DAILY EDMUNDO Administration PFSH Acute PFSH: Medical History (Updated 03/02/25 @ 00:14 by Africa Gifford MD) Recurrent UTI Port-A-Cath in place Mass of colon Colostomy in place Dyslipidemia Benign essential HTN Mild depression DM II (diabetes mellitus, type II), controlled Iron deficiency anemia Morbid (severe) obesity due to excess calories Menorrhagia, premenopausal Surgical History Hx of colectomy [facility] 06/05/2024- had colostomy placed History of cholecystectomy H/O section History of tonsillectomy Family History Mother Cancer CERVICAL CANCER CAD (coronary artery disease) Social History Smoking and tobacco/nicotine status: never used tobacco/nicotine Alcohol intake: never Substance/Drug Use: never Female Reproductive History: Date of last menstrual period: 01/01/24 Vitals/I&O/Wt Last Vital Signs Temp 97.7 F 03/04/25 11:49 Pulse 59 L 03/04/25 11:49 Resp 16 03/04/25 11:49 BP 152/78 03/04/25 11:49 Pulse Ox 97 03/04/25 11:49 O2 Del Method Room Air 03/04/25 11:49 03/04/25 03/04/25 03/04/25 06:59 14:59 22:59 Intake Total 730 / 2450 1490 / 1490 Balance 730 / 2450 1490 / 1490 Weight last 48 hrs Weight 201 lb 0.985 oz Weight 201 lb 0.985 oz Weight 200 lb 9.93 oz Weight 200 lb 9.93 oz Physical Exam Narrative: Patient is a well developed well nourished and in NAD and is afebrile with vitals stable and is answering questions appropriately with a normal affect and is alert and oriented x3 HEENT: normocephalic with normal external ears and nonicteric, oral mucosa moist and dentition normal for age, trachea midline with no large masses visualized Heart: RRR, no gallops murmurs or rubs, normal PMI with no thrills Lungs: normal excursions, no loud audible wheezing, no subcutaneous emphysema Abdomen: nondistended, no gross hepatosplenomegaly, no masses, no rigidity or rebound, no loud borborygmi Neuro: nonfocal, DWYER, grossly normal sensation Musculoskeletal: good muscle tone, no fasciculations, normal gait Skin: pink warm and dry with no rashes or ecchymosis Vascular: good radial pulses, no ulceration, less than 2 second capillary refill in hand : deferred Data 03/04/25 08:47 03/04/25 02:50 Micro: Microbiology 03/01/25 20:48 Urine Culture - Final Urine,Clean Catch Escherichia coli A&P Assessment and plan 1. Intra-abdominal abscess: Would try to get infection under control and abscesses with antibiotics and if abscesses are of appropriate size and acccessible then with percutenous drainage. If too small to drain then continue to give antibiotics to shrink and sterilize abscesses. Repeat CT to make sure they are not getting bigger and can therefore be drained by IR. Once the infection is controlled then consider surgical treatment of recurrent entero vesical fistula. Concerning for recurrent cancer. She was planning to go back to [place] to have this surgery done. She is willing to go to [place] to get percutaneous drainage of abscesses. 2. Enterovesical fistula: PDMP PDMP Reviewed: Not Reviewed Coding Level of Care Code 17872 Diagnoses Intra-abdominal abscess K65.1 Enterovesical fistula N32.1
[2025-03-04 16:36] VITALS: BP 158/87; PULSE 74; RESP 18; O2SAT 94
== END 2025-03-04 16:38 | disposition short-term general hospital (02) | DRG 871 ==
LOC: ER 22:57 → CSU 03-02 00:09
PROVIDERS: Emergency Medicine; Internal Medicine; Admitting Provider Student in an Organized Health Care Education/Training Program; Emergency Provider Student in an Organized Health Care Education/Training Program; PCP Clinical Nurse Specialist Adult Health; Visit Provider Student in an Organized Health Care Education/Training Program
DX: A41.9 Sepsis, unspecified organism (principal); D61.810 Antineoplastic chemotherapy induced pancytopenia; K65.1 Peritoneal abscess; N82.4 Other female intestinal-genital tract fistulae; C18.9 Malignant neoplasm of colon, unspecified; C77.2 Secondary and unspecified malignant neoplasm of intra-abdominal lymph nodes; N12 Tubulo-interstitial nephritis, not specified as acute or chronic; Z16.23 Resistance to quinolones and fluoroquinolones; R65.20 Severe sepsis without septic shock; E78.5 Hyperlipidemia, unspecified; I10 Essential (primary) hypertension; F32.A Depression, unspecified; E11.9 Type 2 diabetes mellitus without complications; D50.8 Other iron deficiency anemias; E66.01 Morbid (severe) obesity due to excess calories; Z68.39 Body mass index [BMI] 39.0-39.9, adult; T45.1X5A Adverse effect of antineoplastic and immunosuppressive drugs, initial encounter; B96.20 Unspecified Escherichia coli [E. coli] as the cause of diseases classified elsewhere; D69.6 Thrombocytopenia, unspecified; Z92.21 Personal history of antineoplastic chemotherapy; Z90.49 Acquired absence of other specified parts of digestive tract; Z87.440 Personal history of urinary (tract) infections; Z95.828 Presence of other vascular implants and grafts; Z93.3 Colostomy status
CPT/HCPCS: 36416; 36591; 74177; 80053; 80202; 81001; 82607; 82746; 82962; 83036; 83540; 83550; 83605; 83735; 84100; 84145; 84443; 84703; 85025; 86140; 87040; 87077; 87086; 87186; 96365; 96367; 96375; 99285; 99291; J0696; J1335; J2185; J2470; J2543; J3373; J3475; J3480; J7030; J7050; J7120; J9999

== ENCOUNTER → 2025-03-14 11:30 | Outpatient (BNVA) | payer OTHER, SELFPAY | PROVIDERS: PCP Clinical Nurse Specialist Adult Health; Visit Provider Clinical Nurse Specialist Adult Health | DX: E11.9 Type 2 diabetes mellitus without complications (principal) | CPT/HCPCS: 83036 ==

== ENCOUNTER 2025-03-30 08:51 | Oncology outpatient (recurring) (ONCR) | payer OTHER, SELFPAY ==
--- NOTE | 2025-03-30 08:58 | CTR_ITS ---
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 Radiation optimization: All CT scans at this facility use at least one of these dose optimization techniques: automated exposure control; mA and/or kV adjustment per patient size (includes targeted exams where dose is matched to clinical indication); or iterative reconstruction. Contrast material: OMNI 350; Contrast volume: 100 ml; Contrast route: INTRAVENOUS (IV); COMPARISON: CR (CHEST, ) 11/15/2024 11:43 AM RADIATION DOSE METRICS: Total DLP (mGy-cm): 1306.88 FINDINGS: Tubes, catheters and devices: Right internal jugular central venous catheter in place with the tip in the right atrium. Lungs: Unchanged 11 mm nodule posteriorly in the right lower lobe with central calcification, requiring no follow-up. Benign 3 mm calcification laterally in the left costophrenic sulcus. Pleural spaces: No effusion or pneumothorax. Heart: Unremarkable. No cardiomegaly. No pericardial effusion. Coronary arteries: No coronary artery calcifications. Lymph nodes: Mediastinal lymph nodes are nonenlarged. Confluent soft tissue abutting the infrahilar vessels represents borderline node enlargement, unchanged. Vasculature: Unremarkable. No aortic aneurysm. Bones/joints: Unremarkable. No acute fracture. Soft tissues: Unremarkable. 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 Radiation optimization: All CT scans at this facility use at least one of these dose optimization techniques: automated exposure control; mA and/or kV adjustment per patient size (includes targeted exams where dose is matched to clinical indication); or iterative reconstruction. Contrast material: OMNI 350; Contrast volume: 100 ml; Contrast route: INTRAVENOUS (IV); COMPARISON: CT abdomen pelvis w con* [id number] 03/01/2025 9:43 PM RADIATION DOSE METRICS: Total DLP (mGy-cm): 1306.88 FINDINGS: Liver: Mild, nonspecific heterogeneity in the right lobe of the liver. No suspicious liver mass. Gallbladder and biliary ducts: Post cholecystectomy. There is no evidence of biliary ductal dilation. Pancreas: The pancreas is normal. No mass. Spleen: Unchanged, nonspecific 2 cm hypodensity in the superior aspect of the spleen. Adrenal glands: The adrenal glands are normal. Kidneys and ureters: Normal. No hydronephrosis. Stomach and bowel: Unchanged left lower quadrant colostomy. Sigmoid colon resection again noted bowel caliber is normal. Ingested oral contrast opacifies the bowel to the level hepatic flexure. Appendix: No evidence of appendicitis. Intraperitoneal space: Unremarkable. No free air. No significant fluid collection. Vasculature: Aortic caliber is normal. Lymph nodes: Unremarkable. No enlarged lymph nodes. Urinary bladder: Bladder demonstrates persistent mural thickening and intraluminal gas. Reproductive: Opacified and non-opacified small bowel loops project into the anterior pelvis and abut the anterior margin of the uterus. Loculated fluid density is interposed between the uterus and small bowel loops, with one loculation revealing slight rim enhancement. 4 cm soft tissue mass is interposed between the dome of the bladder, the anterior uterine body, overlying small bowel loops and loculated fluid. Bones/joints: Unremarkable. No acute fracture. Soft tissues: Unchanged supraumbilical diastasis recti with anterior protrusion omental fat and nondilated colon and small bowel loops. CT/CT chest abdpel w/*[id number] IMPRESSION: No acute findings. IMPRESSION: 1. Decreasing volume of loculated fluid in the pelvis abutting small bowel loops, the uterus and bladder. Residual pelvic abscess is likely. 2. 4 cm focus soft tissue density involving the dome of the bladder, anterior uterus, small bowel and pelvic fluid collections. The finding could represent neoplastic disease or chronic inflammatory process involving the bladder wall. Considering luminal gas in the bladder, the structure may represent vesicoenteric fistula. 3. Unchanged, nonspecific 2 cm hypodensity in the superior aspect of the spleen. Continued CT follow-up is recommended.
[2025-03-30] MEDS: iohexol 350 mg/mL 500 mL Btl (per mL) PO (09:44)
== END 2025-04-01 23:59 | disposition home or self-care (01) ==
PROVIDERS: PCP Clinical Nurse Specialist Adult Health; Visit Provider Internal Medicine Medical Oncology
DX: Z53.9 Procedure and treatment not carried out, unspecified reason (principal); Z51.11 Encounter for antineoplastic chemotherapy; C18.7 Malignant neoplasm of sigmoid colon; C77.2 Secondary and unspecified malignant neoplasm of intra-abdominal lymph nodes; K63.2 Fistula of intestine; Z79.52 Long term (current) use of systemic steroids; Z79.631 Long term (current) use of antimetabolite agent; Z79.899 Other long term (current) drug therapy; Z45.1 Encounter for adjustment and management of infusion pump; Z95.828 Presence of other vascular implants and grafts; R31.9 Hematuria, unspecified
CPT/HCPCS: 71260; 74177; 96523

== ENCOUNTER 2025-04-12 09:31 | Oncology outpatient (recurring) (ONCR) | payer OTHER, SELFPAY ==
[2025-04-12 09:54] LABS: Hematocrit 33.7 % (36-47); Hemoglobin 11.30 g/dL (11.27-16.99); Mean Corpuscular HGB Conc 33.5 g/dL (30-55); Mean Corpuscular Hemoglobin 32.0 pg (27-33); Mean Corpuscular Volume 95.5 fl (85-98); Nucleated Red Blood Cells % 0 %; Platelet Count 144 10^3/cmm (157-399); Red Blood Count 3.53 10^6/uL (3.85-5.65); White Blood Count 6.91 10^3/uL (3.29-11.43)
[2025-04-12 10:19] LABS: Carcinoembryonic Antigen 30.2 ng/mL (0.0-4.7)
[2025-04-12 10:30] LABS: Alanine Aminotransferase 31 U/L (0-33); Albumin Level 3.7 g/dL (3.5-5.2); Alkaline Phosphatase 233 U/L (35-105); Anion Gap 15.8 (5-19); Aspartate Amino Transferase 36 U/L (0-32); Blood Urea Nitrogen 10 mg/dL (6-20); Calcium 8.9 mg/dL (8.5-10.5); Carbon Dioxide 24 mmol/L (22-29); Chloride 103 mmol/L (98-107); Globulin 4.2 g/dL (1.3-4.6); Glucose 224 mg/dL (65-115); Osmolality Calculated 294 mOsm/kg (285-295); Potassium 3.8 mmol/L (3.5-5.1); Sodium 139 mmol/L (136-145); Total Protein 7.9 g/dL (6.6-8.7)
== END 2025-05-01 23:59 | disposition home or self-care (01) ==
PROVIDERS: PCP Clinical Nurse Specialist Adult Health; Visit Provider Internal Medicine Medical Oncology
DX: C18.7 Malignant neoplasm of sigmoid colon (principal); C77.2 Secondary and unspecified malignant neoplasm of intra-abdominal lymph nodes
CPT/HCPCS: 36591; 80053; 82378; 85025

== ENCOUNTER → 2025-04-15 09:09 | Outpatient (BNVA) | payer OTHER, SELFPAY | PROVIDERS: PCP Clinical Nurse Specialist Adult Health; Visit Provider Clinical Nurse Specialist Adult Health | DX: R30.0 Dysuria (principal); R39.9 Unspecified symptoms and signs involving the genitourinary system | CPT/HCPCS: 81000; 87077; 87086; 87184 ==

== ENCOUNTER → 2025-05-30 13:58 | Outpatient (BNVA) | payer OTHER, SELFPAY | PROVIDERS: PCP Clinical Nurse Specialist Adult Health; Visit Provider Clinical Nurse Specialist Adult Health | DX: D64.9 Anemia, unspecified (principal) | CPT/HCPCS: 85018 ==